=== PATIENT | female | born 1945 | race Caucasian/White ===

== ENCOUNTER → 2017-08-13 | Outpatient (REF) | payer MEDICARE, OTHER ==
[2017-08-13 20:45] LABS: C REACTIVE PROTEIN QUANTITATIV < 0.30 MG/DL (0.00-0.30)
== END ==
LOC: M LAB REF 16:56
DX: H60.02 Abscess of left external ear (principal)
CPT/HCPCS: 86140

== ENCOUNTER 2017-08-20 11:28 | Emergency (ER) | payer MEDICARE, OTHER ==
[2017-08-20] MEDS: IPRATROPIUM 0.5MG/ALBUTEROL 2.5MG INH SOL UD 3ML (DUONEB)(J7620) NEB (12:00)
[2017-08-20 12:13] LABS: BASO % 0.6 % (0.0-1.0); EOS # 0.2 10^3/uL (0.0-0.50); EOS % 4.1 % (0.0-3.0); HEMATOCRIT 40.8 % (36.0-47.0); IMMATURE GRANULOCYTE % 1.1 % (0-0); LYMPH # 0.7 10^3/uL (1.5-4.5); LYMPH % 19.1 % (24.0-44.0); MEAN CORPUSCULAR HEMOGLOBIN 31.2 pg (27.0-33.0); MEAN CORPUSCULAR HGB CONC 34.3 g/dl (32.0-36.5); MEAN CORPUSCULAR VOLUME 90.9 fl (80.0-96.0); MONO # 0.3 10^3/uL (0.0-0.8); MONO % 7.2 % (0.0-5.0); NEUTROPHILS # 2.5 10^3/uL (1.8-7.7); NEUTROPHILS % 67.9 % (36.0-66.0); PLATELET COUNT, AUTOMATED 204 10^3/uL (150-450); RED BLOOD COUNT 4.49 10^6/uL (4.00-5.40); RED CELL DISTRIBUTION WIDTH 13.2 % (11.5-14.5); WHITE BLOOD COUNT 3.6 10^3/uL (4.0-10.0)
[2017-08-20 12:26] LABS: ANION GAP 12 MEQ/L (8-16); BLOOD UREA NITROGEN 11 MG/DL (7-18); CALCIUM LEVEL 8.6 MG/DL (8.8-10.2); CARBON DIOXIDE LEVEL 23 MEQ/L (21-32); CHLORIDE LEVEL 79 MEQ/L (98-107); CREATININE FOR GFR 0.95 MG/DL (0.55-1.30); GLOMERULAR FILTRATION RATE > 60.0 (>39); GLUCOSE, FASTING 275 MG/DL (70-100); POTASSIUM SERUM 4.9 MEQ/L (3.5-5.1)
[2017-08-20 12:31] LABS: ALBUMIN 3.5 GM/DL (3.2-5.2); ALKALINE PHOSPHATASE 148 U/L (45-117); ALT/SGPT 128 U/L (12-78); AST/SGOT 259 U/L (7-37); BILIRUBIN,DIRECT 0.2 MG/DL (0.0-0.2); BILIRUBIN,TOTAL 0.7 MG/DL (0.2-1.0); NT-PRO BNP 4399 PG/ML (<125)
[2017-08-20 12:35] LABS: LACTIC ACID SEPSIS PROTOCOL 5.4 MMOL/L (0.4-2.0)
[2017-08-20 12:35] LABS: SODIUM LEVEL 114 MEQ/L (136-145)
[2017-08-20] MEDS: NS 500 ML IV ×2 (12:47→14:29)
[2017-08-20 12:48] LABS: ABG BASE EXCESS -7.7 (-2.0-2.0); ABG HCO3 21.5 MEQ/L (22.0-26.0); ABG PARTIAL PRESSURE CO2 59.7 mmHg (35.0-45.0); ABG PARTIAL PRESSURE O2 165.4 mmHg (75.0-100.0); ABG STANDARD HCO3 18.4 MEQ/L (22.0-26.0); ABG TOTAL CO2 23.4 MEQ/L (23.0-31.0)
[2017-08-20 12:51] LABS: ABG pH (ARTERIAL) 7.175 UNITS (7.350-7.450)
[2017-08-20] MEDS: ALBUTEROL SULFATE 2.5 MG/0.5 ML INH NEB SOLN NEB ×3 (13:18→17:05)
[2017-08-20] MEDS ORDERED: ISOVUE-370 76% 100ML VIAL (Q9967) As Ordered (13:19)
[2017-08-20 14:55] LABS: CK-MB VALUE MASS 19.3 NG/ML (0.0-3.6); CPK CREATINE PHOSPHOKINASE 331 U/L (26-192); MB/CK RELATIVE INDEX 5.83 (< OR =4)
[2017-08-20 14:57] LABS: TROPONIN I 3.05 NG/ML (< 0.10)
[2017-08-20 15:37] LABS: ABG BASE EXCESS -8.6 (-2.0-2.0); ABG O2 SATURATION 88.9 % (95.0-99.0); ABG PARTIAL PRESSURE O2 70.9 mmHg (75.0-100.0); ABG STANDARD HCO3 17.4 MEQ/L (22.0-26.0); ABG TOTAL CO2 24.1 MEQ/L (23.0-31.0)
[2017-08-20 15:39] LABS: ABG PARTIAL PRESSURE CO2 70.3 mmHg (35.0-45.0); ABG pH (ARTERIAL) 7.113 UNITS (7.350-7.450)
[2017-08-20] MEDS: FUROSEMIDE 40 MG/4 ML VIAL (J1940) IV (15:57)
[2017-08-20 15:58] LABS: CK-MB VALUE MASS 22.5 NG/ML (0.0-3.6); CPK CREATINE PHOSPHOKINASE 395 U/L (26-192); MB/CK RELATIVE INDEX 5.69 (< OR =4)
[2017-08-20] MEDS ORDERED: ASPIRIN 81 MG CHEW TABLET PO (16:15)
[2017-08-20 16:17] LABS: ABG HCO3 20.5 MEQ/L (22.0-26.0); ABG O2 SATURATION 95.3 % (95.0-99.0); ABG PARTIAL PRESSURE O2 95.4 mmHg (75.0-100.0); ABG STANDARD HCO3 17.3 MEQ/L (22.0-26.0); ABG TOTAL CO2 22.3 MEQ/L (23.0-31.0)
[2017-08-20 16:18] LABS: ABG pH (ARTERIAL) 7.151 UNITS (7.350-7.450)
[2017-08-20] MEDS: HEPARIN SOD (PORCINE) 5000 UNITS/ML VIAL IV (16:27)
[2017-08-20] MEDS: HEPARIN DRIP 25,000 UNITS in APPROPRIATE DILUENT 1 EA IV (16:28)
[2017-08-20 18:00] LABS: APPEARANCE, URINE HAZY (CLEAR); BACTERIA, URINE AUTO NEGATIVE (NEGATIVE); BILIRUBIN, URINE AUTO NEGATIVE (NEGATIVE); BLOOD, URINE BLOOD 2+ (NEGATIVE); COLOR, URINE YELLOW (YELLOW); GLUCOSE, URINE (UA) AUTO 1+ mg/dL (NEGATIVE); KETONE, URINE AUTO NEGATIVE (NEGATIVE); LEUKOCYTE ESTERASE, URINE AUTO NEGATIVE (NEGATIVE); MUCUS, URINE SMALL (NEGATIVE); NITRITE, URINE AUTO NEGATIVE (NEGATIVE); PROTEIN, URINE AUTO 1+ mg/dL (NEGATIVE); RBC, URINE AUTO 5 /HPF (0-3); SPECIFIC GRAVITY URINE AUTO 1.049 (1.002-1.035); SQUAMOUS EPITHELIAL CELL UR AU 0 /HPF (0-6); WBC, URINE AUTO 2 /HPF (0-3)
[2017-08-20] MEDS: VASOPRESSIN INJ 20 UNITS in NS 500 ML IV (18:08)
== END 2017-08-20 18:51 | disposition short-term general hospital (02) ==
LOC: M ED 11:28
DX: E87.1 Hypo-osmolality and hyponatremia (principal); J44.9 Chronic obstructive pulmonary disease, unspecified; R06.02 Shortness of breath; I21.4 Non-ST elevation (NSTEMI) myocardial infarction; T59.7X1A Toxic effect of carbon dioxide, accidental (unintentional), initial encounter; I50.9 Heart failure, unspecified; F17.200 Nicotine dependence, unspecified, uncomplicated; Z95.1 Presence of aortocoronary bypass graft
CPT/HCPCS: Q9967

== ENCOUNTER → 2017-09-22 | Outpatient (REF) | payer MEDICARE ==
[2017-09-22 18:53] LABS: FOLATE > 24.0 NG/ML; VITAMIN B12 LEVEL 464 PG/ML
[2017-09-22 19:00] LABS: RHEUMATOID FACTOR QUANT < 10.0 IU/ML (0-15.0)
== END ==
LOC: M LAB REF 16:26
DX: R25.1 Tremor, unspecified (principal)
CPT/HCPCS: 82525

== ENCOUNTER 2018-02-11 17:16 | Emergency (ER) | payer MEDICARE ==
[2018-02-11 18:07] LABS: BASO % 0.4 % (0.0-1.0); EOS # 0.1 10^3/uL (0.0-0.50); EOS % 0.8 % (0.0-3.0); HEMATOCRIT 38.2 % (36.0-47.0); HEMOGLOBIN 12.9 g/dl (12.0-15.5); IMMATURE GRANULOCYTE % 0.2 % (0-3.0); LYMPH % 21.3 % (24.0-44.0); MEAN CORPUSCULAR HEMOGLOBIN 30.9 pg (27.0-33.0); MEAN CORPUSCULAR HGB CONC 33.8 g/dl (32.0-36.5); MEAN CORPUSCULAR VOLUME 91.4 fl (80.0-96.0); MONO # 0.9 10^3/uL (0.0-0.8); MONO % 9.6 % (0.0-5.0); NEUTROPHILS # 6.3 10^3/uL (1.8-7.7); NEUTROPHILS % 67.7 % (36.0-66.0); PLATELET COUNT, AUTOMATED 298 10^3/uL (150-450); RED BLOOD COUNT 4.18 10^6/uL (4.00-5.40); RED CELL DISTRIBUTION WIDTH 13.9 % (11.5-14.5); WHITE BLOOD COUNT 9.2 10^3/uL (4.0-10.0)
[2018-02-11] MEDS: ONDANSETRON 4MG/2ML VIAL (J2405) IV (18:07)
[2018-02-11] MEDS: NS 1,000 ML IV (18:07)
[2018-02-11] MEDS: MORPHINE 2 MG/ML 1ML SYRINGE (J2270) IV (18:10)
[2018-02-11 18:19] LABS: INR 0.88
[2018-02-11 18:31] LABS: ALBUMIN 3.9 GM/DL (3.2-5.2); ALBUMIN/GLOBULIN RATIO 1.08 (1.00-1.93); ALKALINE PHOSPHATASE 72 U/L (45-117); ALT/SGPT 23 U/L (12-78); ANION GAP 4 MEQ/L (8-16); AST/SGOT 14 U/L (7-37); BILIRUBIN,DIRECT 0.1 MG/DL (0.0-0.2); BILIRUBIN,TOTAL 0.3 MG/DL (0.2-1.0); BLOOD UREA NITROGEN 13 MG/DL (7-18); CALCIUM LEVEL 10.4 MG/DL (8.8-10.2); CARBON DIOXIDE LEVEL 34 MEQ/L (21-32); CHLORIDE LEVEL 98 MEQ/L (98-107); CREATININE FOR GFR 0.55 MG/DL (0.55-1.30); GLOMERULAR FILTRATION RATE > 60.0 (>39); GLUCOSE, FASTING 102 MG/DL (70-100); LIPASE 235 U/L (73-393); POTASSIUM SERUM 3.7 MEQ/L (3.5-5.1); SODIUM LEVEL 136 MEQ/L (136-145); TOTAL PROTEIN 7.5 GM/DL (6.4-8.2)
[2018-02-11 19:59] LABS: KETONE, URINE AUTO RFX NEGATIVE (NEGATIVE); MUCUS, URINE RFX SMALL (NEGATIVE); NITRITE, URINE AUTO RFX NEGATIVE (NEGATIVE); RBC, URINE AUTO RFX 2 /HPF (0-3); SQUAM EPITHELIAL CELL UR AURFX 0 /HPF (0-6); WBC, URINE AUTO RFX 7 /HPF (0-3)
[2018-02-11 20:02] LABS: LEUKOCYTE ESTERASE UR AUTO RFX TRACE (NEGATIVE)
== END 2018-02-11 20:53 | disposition home or self-care (01) ==
LOC: M ED 17:16
DX: K52.9 Noninfective gastroenteritis and colitis, unspecified (principal); J44.9 Chronic obstructive pulmonary disease, unspecified; F41.9 Anxiety disorder, unspecified; Z87.891 Personal history of nicotine dependence; Z79.82 Long term (current) use of aspirin; Z79.899 Other long term (current) drug therapy; Z88.8 Allergy status to other drugs, medicaments and biological substances; Z91.89 Other specified personal risk factors, not elsewhere classified
CPT/HCPCS: J2405

== ENCOUNTER → 2018-07-09 | Outpatient (REF) | payer MEDICARE ==
[~2018-07-09] MED LIST: ASPI1TAB PO; BACT800T5 PO; IPRA0.00 INH; LORA0.5T11 PO; MIRT1TAB PO; ONDA4SOL PO; PRAV40TA2 PO; PROAAER10 INH; SERT25TA PO; SYMB80INH INH; ZOFR4TAB14 PO
== END ==
LOC: M LAB REF 13:17
PROVIDERS: ATTEND Internal Medicine
DX: E83.52 Hypercalcemia (principal)

== ENCOUNTER 2019-02-12 18:04 | Inpatient (IN) | payer MEDICARE ==
[~2019-02-12] VITALS: Ht 162.6 cm; Wt 37.4 kg
[~2019-02-12 18:04] MED LIST changes: -ASPI1TAB PO; +ASPI81TA26 PO; -SERT25TA PO; +SERT25TA85 PO
[2019-02-12] MEDS ORDERED: NS 1,000 ML IV SCH ×2 (18:11→21:00)
[2019-02-12] MEDS ORDERED: ONDANSETRON 4MG/2ML VIAL (J2405) IV ONE (18:15)
[2019-02-12] MEDS ORDERED: LIDOCAINE 2% 5ML JELLY UROJET TOP ONE (18:15)
--- NOTE | 2019-02-12 18:34 | REPVR ---
EXAM: CT Head Without Contrast EXAM DATE/TIME: 02/12/2019 6:11 PM CLINICAL HISTORY: 74 years old, female; Injury or trauma; Fall; Initial encounter; Blunt trauma (contusions or hematomas); Consciousness not specified TECHNIQUE: Imaging protocol: Computed tomography images of the head without contrast. Radiation optimization: All CT scans at this facility use at least one of these dose optimization techniques: automated exposure control; mA and/or kV adjustment per patient size (includes targeted exams where dose is matched to clinical indication); or iterative reconstruction. COMPARISON: CT Head without contrast 08/20/2017 3:32 PM FINDINGS: Brain: No intracranial mass, focal mass effect or midline shift. No acute intracranial hemorrhage. Moderate decreased attenuation in periventricular/centrum semiovale white matter. No focal effacement of cortical sulci to indicate acute cortical infarct. Ventricles: Prominent ventricles and CSF spaces suggest parenchymal volume loss. Bones/joints: No calvarial fracture or destructive process. Sinuses: Visualized paranasal sinuses are unremarkable. Mastoid air cells: Mastoid air cells are normally aerated. Orbits: Visualized globes and orbits are unremarkable. Soft tissues: Mild left posterior vertex extracranial soft tissue swelling. IMPRESSION: 1. Mild left posterior vertex extracranial scalp swelling 2. No acute intracranial abnormality. 3. Atrophy and chronic microangiopathic change in supratentorial white matter. Electronically signed by: Leonard Bowden On 02/12/2019 18:34:20 PM
[2019-02-12] MEDS ORDERED: OMEP-218 PO (18:47)
[2019-02-12] MEDS ORDERED: FURO40TA2 PO (18:47)
[2019-02-12] MEDS ORDERED: D-50CAP PO (18:47)
[2019-02-12] MEDS ORDERED: CENT1TAB PO (18:47)
[2019-02-12] MEDS ORDERED: MORPHINE 2 MG/ML 1ML SYRINGE (J2270) IV ONE (19:30)
[2019-02-12 19:34] LABS: INR 0.94; PROTHROMBIN TIME 12.3 SECONDS (11.8-14.0)
--- NOTE | 2019-02-12 19:47 | REP ---
AP pelvis: There is an intertrochanteric fracture of the left hip. There is no dislocation. The right hip is unremarkable. No other pelvic fracture is identified. There is lumbar scoliosis convex right. Left hip two views: There is an intertrochanteric fracture. There is no dislocation. Electronically Signed by Moisés Juares MD 02/12/2019 07:38 P
--- NOTE | 2019-02-12 19:49 | REP ---
Portable chest, 07:17 p.m., two AP views with the patient supine: Comparison is 08/20/2017. The lung fernandez are chronically hyperinflated, unchanged. There are no infiltrates. There are no pleural effusions. There are no masses or nodules. Cardiac size is normal. The jhoana, mediastinum, skeletal structures are unremarkable for positioning. Impression: Chronic hyperinflation. No acute cardiopulmonary findings. Electronically Signed by Moisés Juares MD 02/12/2019 07:40 P
[2019-02-12 19:56] LABS: BLOOD UREA NITROGEN 11 MG/DL (7-18); CALCIUM LEVEL 7.9 MG/DL (8.8-10.2); CARBON DIOXIDE LEVEL 33 MEQ/L (21-32); CHLORIDE LEVEL 99 MEQ/L (98-107); CK-MB VALUE MASS 3.2 NG/ML (<3.6); CPK CREATINE PHOSPHOKINASE 89 U/L (26-192); CREATININE FOR GFR 0.36 MG/DL (0.55-1.30); GLOMERULAR FILTRATION RATE > 60.0 (>39); GLUCOSE, FASTING 91 MG/DL (70-100); POTASSIUM SERUM 3.7 MEQ/L (3.5-5.1); SODIUM LEVEL 137 MEQ/L (136-145); TROPONIN I < 0.02 NG/ML (< 0.10)
[2019-02-12] MEDS ORDERED: SERT-141 PO (20:10)
--- NOTE | 2019-02-12 21:18 | HPEPDOC ---
General Date of Admission 02/12/19 Date of Service: Feb 12, 2019 Attending Physician: YUAN ARAGON MD Chief Complaint The patient is a 74-year-old female admitted with a reason for visit of Hip Inju ry. Source: Patient, Family Exam Limitations: Mild cognitive slowing Timing/Duration: Day(s) (. 1 day) Severity: Moderate Associated Symptoms: Other (. Pain at the left hip) History of Present Illness 74 years old white female with past medical history of dementia, COPD, status post CABG 2, status post hysterectomy. She is very poor historian secondary dementia. History was obtained from his son was available at the bedside. As per son, she was trying to answer her phone and and subsequently fell forward on her kitchen and sustained injury to her left hip. Patient complaining of pain at the left hip which is 5/10, sharp, nonradiating, relieved with rest and medications exacerbated by movements, not associated with. With any other symptoms. Terra will be admitted to medical floor with the diagnosis of left hip fracture and will be seen by Dr. Bauer in a.m. Home Medications Scheduled Aspirin (Aspirin EC) 81 Mg Tab, 81 MG PO DAILY, (Reported) Budesonide/Formoterol (Symbicort 80-4.5 Mcg Inhaler) 60 Puff/Inhaler Aers, 2 PUFF INH BID, (Reported) Cholecalciferol (Vitamin D3) (D-5000 Maximum Strength) 5,000 Unit Capsule, 5,000 UNITS PO DAILY, (Reported) Furosemide (Furosemide) 40 Mg Tablet, 20 MG PO DAILY, (Reported) Multivit-Min/FA/Lycopen/Lutein (Centrum Silver Tablet) 1 Each Tablet, 1 TAB PO DAILY, (Reported) Omeprazole (Omeprazole) 20 Mg Capsule.dr, 20 MG PO BID, (Reported) Sertraline Hcl (Sertraline HCl) 50 Mg Tablet, 50 MG PO BID, (Reported) Scheduled PRN Albuterol Sulfate (Proair Hfa) 108 Mcg/Act Aer, 2 PUFFS INH TID PRN for SHORTNESS OF BREATH, (Reported) Allergies Coded Allergies: alendronate sodium (Verified Allergy, Unknown, hives, 02/12/19) atorvastatin (Verified Allergy, Unknown, unk, 02/12/19) clopidogrel (Verified Allergy, Unknown, hives, 02/12/19) fentanyl (Verified Allergy, Unknown, cardiac arrest, 02/12/19) nickel (Verified Allergy, Unknown, unk, 02/12/19) Past Medical History Medical History Dementia, COPD, CABG 2 Surgical History Status post hysterectomy Family History Significant Family History: Other (. Family history of breast cancer, as per patient's son) Social History * Smoker: current smoker Alcohol: Denies Drugs: denies Psychosocial History: No pertinent psych hx A-FIB/CHADSVASC A-FIB History Current/History of A-Fib/PAF?: No Review of Systems Constitutional: Denies: Chills, Fever, Malaise, Night Sweats, Weakness, Fatigue, Weight Loss, Lethargy, Other Eyes: Denies: Pain, Vision change, Conjunctivae inflammation, Eyelid inflammation, Redness, Other ENT: Denies: Head Aches, Ear Pain, Dysphagia, Sinus Congestion, Post Nasal Drip, Sore Throat, Epistaxis, Other Symptoms Skin: Denies: Rash, Lesions, Jaundice, Bruising, Itching, Dry, Breakdown, Nail Changes, Other Pulmonary: Denies: Dyspnea, Cough, Pleuritic Chest Pain, Other Symptoms Cardiovascular: Denies: Chest Pain, Palpitations, Orthopnea, Paroxysmal Noc. Dyspnea, Edema, Lt Headedness, Other Symptoms Gastrointestinal: Denies: Nausea, Vomiting, Abdominal Pain, Diarrhea, Constipation, Melena, Hematochezia, Other Symptoms Genitourinary: Denies: Dysuria, Frequency, Incontinence, Hematuria, Retention, Other Symptoms Hematologic: Denies: Bruising, Bleeding Excessively, Petecchia, Purpura, Enlarged Lymph Nodes, Other Hematologic Endocrine: Denies: Polydipsia, Polyphagia, Polyuria, Heat Intolerance, Cold Intolerance, Other Endocrine Sx Musculoskeletal: Reports: Other Symptoms (. Left hip pain) Neurological: Denies: Weakness, Numbness, Incoordination, Change in speech, Con fusion, Seizures, Other Symptoms Psych: Denies: Mood Normal, Anxiety, Depression, Memory Issues, Thoughts of Self Harm, Anger, Thoughts of Harming Other, Other Psych Physical Examination General Exam: Positive: Cooperative, Mild Distress Eye Exam: Positive: PERRLA, Conjunctiva & lids normal ENT Exam: Positive: Atraumatic, Mucous membr. moist/pink Neck Exam: Positive: Supple Chest Exam: Positive: Clear to auscultation, Normal air movement Heart Exam: Positive: Rate Normal, Normal S1, Normal S2 Abdomen Exam: Positive: Normal bowel sounds Extremity Exam: Positive: Other (. External rotation and shortening of the left lower leg. Positive tenderness on palpation of the left hip) Skin Exam: Positive: Nl turgor and temperature Neuro Exam: Positive: Normal Speech, Normal Tone, Sensation Intact, Other (. Strength 5 over 5 on 3 extremities) Psych Exam: Positive: Mood NL Vital Signs Vital Signs Date Time Temp Pulse Resp B/P (MAP) Pulse Ox O2 Delivery O2 Flow Rate FiO2 02/12/19 20:16 18 02/12/19 19:54 91 02/12/19 18:42 97 Nasal Cannula 3.0 02/12/19 18:13 98.2 118/73 Laboratory Data Labs 24H Laboratory Tests 2 02/12/19 19:09: Prothrombin Time 12.3, Prothromb Time International Ratio 0.94, Anion Gap 5L, Glomerular Filtration Rate > 60.0, Blood Urea Nitrogen 11, Creatinine 0.36L, Sodium Level 137, Potassium Level 3.7, Chloride Level 99, Carbon Dioxide Level 33H, Calcium Level 7.9L, Total Creatine Kinase 89, Creatine Kinase MB 3.2, Creatine Kinase MB Relative Index 3.60, Troponin I < 0.02 CBC/BMP Laboratory Tests 02/12/19 19:09 Calcium Level 7.9 L, Total Creatine Kinase 89 Problems (1) Hip fracture Status: Acute Problem Text: 74 years old white female with past medical history of dementia, CAD status post CABG, COPD, had sustained a fall on her left hip and on x-ray does, she was diagnosed with intraductal and fracture of the left femur, ED spoke with Dr. Bauer, and patient possibly will be taken to or tomorrow Admit to medical floor Bed rest Nothing by mouth A.m. labs Pain management with morphine sulfate 2 mg IV every 4 hours when necessary IV fluids normal saline at 70 mL per hour Hold by mouth meds DVT prophylaxis with antithrombotic stockings as anticoagulation with be contraindicated secondary to impending surgery and bilateral SCDs cannot be applied secondary to left hip fracture (2) COPD (chronic obstructive pulmonary disease) Status: Acute Problem Text: Patient is currently active smoker NicoDerm 14 mg patch applied DuoNeb every 4 hours For the change in management depending on patient's clinical response O2 support by 3 L nasal cannula, pt is on home O2 by 3 L nasal cannula Plan / VTE VTE Prophylaxis Ordered?: Yes YUAN ARAGON MD Feb 12, 2019 21:18
[2019-02-12] MEDS: IPRATROPIUM 0.5MG/ALBUTEROL 2.5MG INH SOL UD 3ML (DUONEB)(J7620) NEB SCH (21:39)
[2019-02-12 23:09] VITALS: BP 123/58
[2019-02-12] MEDS: MORPHINE 4 MG/ML 1ML VIAL/SYRINGE (J2270) IV PRN (23:28)
[2019-02-13] VITALS (7 sets, daily range): BP systolic 106–138; BP diastolic 58–79
[2019-02-13] MEDS: IPRATROPIUM 0.5MG/ALBUTEROL 2.5MG INH SOL UD 3ML (DUONEB)(J7620) NEB SCH ×4 (01:20→11:20)
[2019-02-13] MEDS: MORPHINE 4 MG/ML 1ML VIAL/SYRINGE (J2270) IV PRN (05:56)
[2019-02-13 06:41] LABS: HEMATOCRIT 27.9 % (36.0-47.0); HEMOGLOBIN 9.1 g/dl (12.0-15.5); MEAN CORPUSCULAR HEMOGLOBIN 31.1 pg (27.0-33.0); MEAN CORPUSCULAR HGB CONC 32.6 g/dl (32.0-36.5); MEAN CORPUSCULAR VOLUME 95.2 fl (80.0-96.0); PLATELET COUNT, AUTOMATED 203 10^3/uL (150-450); RED BLOOD COUNT 2.93 10^6/uL (4.00-5.40); WHITE BLOOD COUNT 9.2 10^3/uL (4.0-10.0)
[2019-02-13 07:12] LABS: ALBUMIN 3.2 GM/DL (3.2-5.2); ALT/SGPT 25 U/L (12-78); BILIRUBIN,TOTAL 0.3 MG/DL (0.2-1.0); BLOOD UREA NITROGEN 11 MG/DL (7-18); CALCIUM LEVEL 8.7 MG/DL (8.8-10.2); CARBON DIOXIDE LEVEL 34 MEQ/L (21-32); CHLORIDE LEVEL 97 MEQ/L (98-107); CREATININE FOR GFR 0.39 MG/DL (0.55-1.30); GLOMERULAR FILTRATION RATE > 60.0 (>39); GLUCOSE, FASTING 91 MG/DL (70-100); MAGNESIUM LEVEL 1.9 MG/DL (1.8-2.4); POTASSIUM SERUM 3.9 MEQ/L (3.5-5.1); SODIUM LEVEL 137 MEQ/L (136-145); TOTAL PROTEIN 5.6 GM/DL (6.4-8.2)
--- NOTE | 2019-02-13 08:40 | CR ---
DATE OF CONSULTATION: 02/13/2019 CHIEF COMPLAINT: Left hip fracture. HISTORY OF PRESENT ILLNESS: This is a 74-year-old female who had a mechanical fall at home. She was getting up to answer a robo call. She fell in the kitchen and sustained an injury to her left hip. No prior history of pain to the hip although the patient is a poor historian given her history of dementia. PAST MEDICAL HISTORY: Dementia. Chronic obstructive pulmonary disease (COPD) Coronary artery bypass graft (CABG) times two. MEDICATIONS: - aspirin 81 mg - Symbicort - vitamin D - Lasix - multivitamin - omeprazole - sertraline as needed - albuterol ALLERGIES: ALENDRONATE, ATORVASTATIN, CLOPIDOGREL, FENTANYL and NICKEL. PAST SURGICAL HISTORY: Post hysterectomy. Coronary artery bypass graft times two. SOCIAL HISTORY: Is a smoker. Apparently lives with her son. Was ambulating what seems like normally before this, although difficult to tell given she is a poor historian. PHYSICAL EXAM: This morning, vital signs: Temperature 98.9. Blood pressure 123/59. Pulse rate 84. Respiratory rate 18, 97% on 2 liters nasal prongs. She appears comfortable. She is alert and oriented. She is lying supine in bed. She is alert and oriented times one. She thinks that she is in her apartment although she is easily corrected. I reoriented to her to the fact that she is in a hospital. She is aware that she fractured her left hip and that is where the pain is. Both hips are closed Minimal bruising to either hip and no swelling but an obvious shortening on externally rotated hip. No pain down to the knee, tibia or ankle. She is able to wiggle toes, dorsiflex and plantarflex her feet. Normal sensation throughout the feet. Feet are warm. Poor pedal pulses. Laboratory examination reveals a hemoglobin of 9.1. PT 12.3 and INR 0.94. Radiographs were obtained of the left hip and the AP of the pelvis. This shows a displaced shortened intertrochanteric hip fracture. This appears to have an intact lateral wall. Lesser trochanter may or may not be fractured off making this a two or three part fracture. CT scan was also obtained of her head without contrast. This showed no acute intracranial abnormality. However, there is atrophy and chronic microangiopathic changes in the supratentorial white matter as well as mild left posterior vertex extracranial scalp swelling. ASSESSMENT/PLAN: I did talk to Erum about pros, cons, risks and benefits of going ahead with left hip open reduction internal fixation in the form of an IM nail. She would prefer that I talk to her son which I went ahead and did. I called Marty Cheema on the phone. Again we talked about pros, cons, risks and benefits of not doing the surgery, risks of going ahead with open reduction internal fixation. Wished to proceed. Myself as well as the nurse practitioner Lizet did a two person over the phone consent for both the surgical procedure as well as blood products if she were to need them as she does have a baseline low hemoglobin. I suspect this may be the case. We will go ahead and book this now for [facility] OR today or tomorrow within the next 48 hours after the injury. For now, we will keep her fasting and hold off on any blood thinners and control her pain, make her bedrest. Edited: richard 02/23/2019 1502 MTDD
[2019-02-13] MEDS ORDERED: ASPIRIN 81 MG ENTERIC TAB PO SCH (09:00)
[2019-02-13] MEDS ORDERED: NICOTINE 14 MG/24 HR TRANSDERMAL TD SCH (09:00)
--- NOTE | 2019-02-13 09:43 | ECGEPIP ---
[facility] - ED Test Date: 2019-02-12 Pat Name: LAXMI BUENO Department: Room: [place] [address] Gender: Female Barista: carly : 1945 Requested By: BLAYNE BERRY Order Number: [id number] Reading MD: Nikki Pena Measurements Intervals [place] Rate: 87 P: 81 VT: 124 QRS: 54 QRSD: 120 T: 75 QT: 388 QTc: 468 Interpretive Statements SINUS RHYTHM POSSIBLE LEFT ATRIAL ENLARGEMENT LBBB SEPTAL MYOCARDIAL INFARCTION, OF INDETERMINATE AGE Electronically Signed on 02-13-2019 9:43:03 EDT by Nikki Pena
[2019-02-13] MEDS ORDERED: ceFAZolin 1GM INJ (J0690 PER 500MG) As Ordered ONE (13:46)
[2019-02-13] MEDS ORDERED: TRANEXAMIC ACID 100 MG/ML 10ML VIAL As Ordered ONE (13:46)
[2019-02-13] MEDS ORDERED: ceFAZolin 2 GM/D5W 50 ML IV BAG (J0690 PER 500MG) As Ordered ONE (14:23)
[2019-02-13] MEDS ORDERED: MIDAZOLAM INJ 2 MG/2 ML VIAL (J2250) As Ordered ONE (14:32)
[2019-02-13] MEDS ORDERED: PROPOFOL 200 MG/20 ML VIAL As Ordered ONE (14:32)
[2019-02-13] MEDS ORDERED: LIDOCAINE 2% INJ 100 MG/5 ML SDV (FOR ANES.) As Ordered ONE (14:32)
[2019-02-13] MEDS ORDERED: KETAMINE HCL 200 MG/20 ML VIAL As Ordered ONE (14:32)
[2019-02-13] MEDS ORDERED: PHENYLephrine HCL 500 MCG/5 ML (100MCG/ML) SYRINGE (J2370) As Ordered ONE (14:43)
[2019-02-13] MEDS: MORPHINE 10 MG/ML 1ML VIAL (J2270) IV PRN ×3 (15:10→15:41)
[2019-02-13] MEDS ORDERED: MORPHINE 10 MG/ML 1ML VIAL (J2270) As Ordered ONE (15:20)
--- NOTE | 2019-02-13 15:27 | REP ---
Intraoperative fluoroscopic views of the left hip. Internal fixation: A series of four intra and operative fluoroscopic images are performed during gamma nail internal fixation. The proximal and distal ends of the gamma nail are in satisfactory positions alignment. The fracture is maintained in satisfactory position alignment. Fluoroscopic exposure time is 73 seconds. The fluoroscopic images are performed with last image hold technology and require no additional radiation. Electronically Signed by Moisés Juares MD 02/13/2019 03:18 P
[2019-02-13] MEDS: LR 1,000 ML IV SCH ×2 (15:30→23:30)
[2019-02-13] MEDS ORDERED: PERCOCET 5MG/325MG TAB PO PRN (15:30)
[2019-02-13] MEDS ORDERED: ONDANSETRON 4MG/2ML VIAL (J2405) IV PRN ×2 (15:30)
[2019-02-13] MEDS ORDERED: ONDANSETRON 4 MG TAB (S0181) PO PRN (15:30)
[2019-02-13] MEDS ORDERED: MORPHINE 4 MG/ML 1ML VIAL/SYRINGE (J2270) IV PRN (15:30)
[2019-02-13] MEDS ORDERED: LR 1,000 ML IV SCH (15:30)
--- NOTE | 2019-02-13 15:48 | RO ---
DATE OF PROCEDURE: 02/13/2019 PREOPERATIVE DIAGNOSIS: Left hip fracture. POSTOPERATIVE DIAGNOSIS: Left hip fracture. PLANNED PROCEDURE: Left hip intramedullary (IM) nail, open reduction internal fixation. PROCEDURE PERFORMED: Left hip intramedullary nail, open reduction internal fixation. IMPLANTS USED: Synthes short TFN-A 125 degree, 200 mm long, proximal helical blade 90 mm and distal locking screw 38 mm long. OPERATIVE PREAMBLE: This 74-year-old female had a mechanical fall. I saw her at [facility] on the 5th floor, [address]. I talked to her; unfortunately, she had dementia. I talked to her son and Power of Landscape Nurseryman and next of kin, Marty Cheema. He consented for the surgical procedure, possible need for blood products as well as anesthetic consent. I marked the left side. We went ahead with the surgery. DESCRIPTION OF PROCEDURE: Patient brought to operating theater, they administered spinal anesthetic. Two grams of IV Ancef and 2 grams of IV tranexamic acid was administered as well as starting a transfusion of packed red blood cells. Once spinal anesthesia was induced, the patient was transferred to the operating table, placed supine on the fracture table with the left leg in traction and the right leg in the well leg anaya, flexed up and out of the way. Peroneal post was placed and appropriately padded. Left leg was tractioned and then slightly internally rotated. AP lateral radiographs were taken intraoperatively and throughout the case to confirm appropriate reduction. Preoperative time-out was performed and confirmed the patient and the site. Left lower extremity was prepped and draped in the usual sterile fashion with a shower curtain-style drape. We began by making a small 2-inch incision centered two fingerbreadths proximal to the level of the greater trochanter just posteriorly to that. I carried this dissection down through skin and subcutaneous tissue achieving meticulous hemostasis, achieving dissection down to the level of the greater trochanter. I passed the 3.2-mm partially-threaded tip guidewire at the level of the greater trochanter, at the tip of that, down to the level of the lesser trochanter and in line with the canal on the lateral radiograph. I then reamed overtop of this. I then inserted the 125 degree Synthes TFN-A nail with the radiolucent guide. I passed this down all the way down the canal. This slid down nicely and easily. The reduction was maintained. I then used the drop down guide to percutaneously insert another 3.2 mm guidewire in the center of the femoral head and neck. This measured approximately 95 mm. I then reamed over top of the guidewire to 90 mm, confirmed on both the AP and lateral radiograph that there was no drill or guidewire penetration. I then inserted a 90 mm helical blade over top of the guidewire. I performed near-far technique with fluoroscopy confirming that there was no penetration of the screw throughout the near-far technique. I then turned my attention distally. Again, using percutaneous technique, I drilled using the 3.2 mm drill and then I inserted a 38 mm long distal locking screw. I had also locked the nail proximally. Guide was removed. Final AP and lateral radiographs were taken proximally as well as distally to confirm proper reduction and nail placement. Wounds were thoroughly irrigated with normal saline mixed with cefazolin. Subcutaneous tissue was closed with interrupted #2-0 Vicryl and skin with cora. Skin was cleaned with a wet-and-dry dressing followed by application of Adaptic, 4 x 8 gauze, ABD dressing and cloth tape. The patient was taken out of the traction set up, transferred off the operating table and taken to the postanesthetic care unit in stable condition. All sponge, needle, and instrument counts were correct. Estimated blood loss 100 mL. No complications associated with the procedure. The plan for the patient is to weightbearing as tolerated. She will see physical therapy (PT) and occupational therapy (OT) while admitted to the hospital to ensure safety for mobilization, discharge possibly home or for discharge planning as well. Venous thromboembolism (VTE) prophylaxis will be achieved with rivaroxaban 10 mg by mouth once daily starting postoperative day #1. We will also check hemoglobin and electrolytes postoperative day 1, 2, and 3 as she is receiving a transfusion for a preoperative low hemoglobin of 9.1 due to her chronic obstructive pulmonary disease (COPD). I will communicate with Marty after the case is finalized as well and round tomorrow and the next day.
[2019-02-13] MEDS ORDERED: ONDANSETRON 4MG/2ML VIAL (J2405) As Ordered ONE (16:01)
--- NOTE | 2019-02-13 17:47 | IPNPDOC ---
Text Note Date of Service The patient was seen on 02/13/19. NOTE SUBJECTIVE: Patient examined at bedside, complaining of left hip pain from r ecent fall. States she often gets telemarketing calls, was napping, woke up frazzled to answer their call and happened to trip over her feet along the way to the phone, "I was half asleep trying to get there on time." Was down for 1.5 hours and then son came home and found her. Denies any symptoms prior to falling. She has no other complaints. Otherwise patient denies chest pain, shortness breath, nausea, vomiting, fevers, chills OBJECTIVE PHYSICAL EXAMINATION: VITAL SIGNS: Please see below. GENERAL: Pleasant, NAD, sitting up in bed awake alert oriented speaking in complete sentences no acute distress. Cachectic HEENT: Moist mucous membranes no elevation in CVP CARDIOVASCULAR: S1 S2 regular no additional heart sounds appreciated. RESPIRATORY: diffuse expiratory wheezing, baseline COPD. No accessory muscle use. Is at her baseline 3-4L NC currently ABDOMINAL: Bowel sounds present abdomen soft and non-tender EXTREMITIES: No clubbing cyanosis or edema. LLE limited movement due to recent fracture, tender to palpation at left hip. Spontaneously moves other 3 extremities. No edema or calf tenderness NEUROLOGICAL: No gross focal deficits appreciated PSYCHOLOGICAL: Appropriate LABORATORY DATA, MICROBIOLOGY: Please see below. IMAGING STUDIES: 02/12/19 hip/pelvis xray: There is an intertrochanteric fracture. There is no dislocation. ASSESSMENT AND PLAN: 74 yo F s/p mechanical fall here for left hip pain found to be fractured on admission PROBLEMS: 1. Left hip intertrochanteric fracture s/p mechanical fall: npo, bedrest, hold AC. Scheduled for OR today with Ortho. Appreciate input. PT/OT afterwards. On fall precautions 2. CAD s/p CABG: continue ASA & po lasix postop 3. Chronic hypoxic and hypercapnic respiratory failure 2/2 COPD & active tobacco use: nebs & nicotine patch. Chronically 2-3L NC. Stable, no resp complaints 4. Depression: stable continue Sertraline postop 5. Dementia: limited historian 6. GERD continue PPI postop 7. Malnourishment: BMI 14, likely worsened by baseline dementia. Frail- appearing. Encourage po intake after surgery. PFS to assist [demented 74 yo F reportedly lives alone with 2 sons checking in]. DVT prophylaxis: mechanical, avoid AC pending surgery DISPOSITION: scheduled for OR with Ortho today for left hip fracture. Resume meds after. PT/OT & PFS. I saw and evaluated the patient. I agree with the findings and plan of care as documented in the above note VS,Michelle, I+O VS, Nicholasbone, I+O Laboratory Tests 02/12/19 19:09 Calcium Level 7.9 L, Total Creatine Kinase 89 02/13/19 06:27 Calcium Level 8.7 L, Red Blood Count 2.93 L, Mean Corpuscular Volume 95.2, Mean Corpuscular Hemoglobin 31.1, Mean Corpuscular Hemoglobin Concent 32.6, Red Cell Distribution Width 13.8, Aspartate Amino Transf (AST/SGOT) 23, Alanine Aminotransferase (ALT/SGPT) 25, Alkaline Phosphatase 55, Total Bilirubin 0.3, Total Protein 5.6 L, Albumin 3.2 Vital Signs Date Time Temp Pulse Resp B/P (MAP) Pulse Ox O2 Delivery O2 Flow Rate FiO2 02/13/19 17:21 98.7 94 18 110/58 (75) 97 2.0 02/12/19 22:49 Nasal Cannula I&O- Last 24 Hours up to 6 AM 02/13/19 06:00 Intake Total 100 ml Output Total 200 ml Balance -100 ml CANDY ROBERTS DO Feb 13, 2019 17:47 PRETTY PRADO MD Feb 15, 2019 16:36
[2019-02-13] MEDS ORDERED: ALBUTEROL 90 MCG/ACT 8GM HFA INHALER INH PRN (18:30)
[2019-02-13] MEDS: SYMBICORT 80/4.5MCG INHALER 6GM INH SCH (20:06)
[2019-02-13] MEDS: OMEPRAZOLE 20 MG CAP PO SCH (20:20)
[2019-02-13] MEDS: SERTRALINE HCL 50 MG TAB PO SCH (20:20)
[2019-02-13] MEDS: ACETAMINOPHEN 325 MG TAB PO PRN (20:20)
[2019-02-14] MEDS: ACETAMINOPHEN 325 MG TAB PO PRN ×4 (00:58→21:31)
[2019-02-14 02:00] VITALS: BP 130/75
[2019-02-14 06:00] VITALS: BP 132/78
[2019-02-14 06:36] LABS: HEMATOCRIT 29.9 % (36.0-47.0); MEAN CORPUSCULAR HEMOGLOBIN 30.9 pg (27.0-33.0); MEAN CORPUSCULAR HGB CONC 33.4 g/dl (32.0-36.5); MEAN CORPUSCULAR VOLUME 92.3 fl (80.0-96.0); PLATELET COUNT, AUTOMATED 163 10^3/uL (150-450); RED BLOOD COUNT 3.24 10^6/uL (4.00-5.40); WHITE BLOOD COUNT 9.7 10^3/uL (4.0-10.0)
[2019-02-14 07:04] LABS: BLOOD UREA NITROGEN 10 MG/DL (7-18); CALCIUM LEVEL 8.9 MG/DL (8.8-10.2); CARBON DIOXIDE LEVEL 33 MEQ/L (21-32); CHLORIDE LEVEL 97 MEQ/L (98-107); CREATININE FOR GFR 0.47 MG/DL (0.55-1.30); GLOMERULAR FILTRATION RATE > 60.0 (>39); GLUCOSE, FASTING 109 MG/DL (70-100); POTASSIUM SERUM 3.6 MEQ/L (3.5-5.1); SODIUM LEVEL 133 MEQ/L (136-145)
[2019-02-14] MEDS: SYMBICORT 80/4.5MCG INHALER 6GM INH SCH ×2 (07:17→20:07)
[2019-02-14] MEDS: MOM 30ML SUSPENSION UDC PO SCH (07:47)
[2019-02-14] MEDS: MIRALAX *UNIT DOSE* 17GM PACKET PO SCH (07:47)
[2019-02-14] MEDS: MULTIVITAMINS/MINERALS THERAP 1 TAB PO SCH (07:48)
[2019-02-14] MEDS: SERTRALINE HCL 50 MG TAB PO SCH ×2 (07:49→21:31)
[2019-02-14] MEDS: FUROSEMIDE 20 MG TAB PO SCH (07:49)
[2019-02-14] MEDS: OMEPRAZOLE 20 MG CAP PO SCH ×2 (07:49→21:31)
[2019-02-14] MEDS: SENOKOT S TAB PO SCH ×2 (07:49→21:31)
[2019-02-14 10:00] VITALS: BP 132/80
--- NOTE | 2019-02-14 12:38 | IPNPDOC ---
Date Seen The patient was seen on 02/14/19. Progress Note SUBJECTIVE: Patient this morning is oriented to person and year but otherwise is disoriented to location situation day of the week months. She denies any complaints. Otherwise patient denies chest pain, shortness breath, nausea, vomiting, fevers, chills OBJECTIVE PHYSICAL EXAMINATION: VITAL SIGNS: Please see below. GENERAL: Pleasant, frail elderly woman, sitting up in bed awake alert oriented speaking in complete sentences no acute distress. Cachectic HEENT: Moist mucous membranes no elevation in CVP, she is wearing nasal cannula at her baseline CARDIOVASCULAR: S1 S2 regular no additional heart sounds appreciated. RESPIRATORY: Very mild diffuse expiratory wheezing,. No accessory muscle use. ABDOMINAL: Bowel sounds present abdomen soft and non-tender EXTREMITIES: No clubbing cyanosis or edema. Dressing is clean dry and intact NEUROLOGICAL: No gross focal deficits appreciated PSYCHOLOGICAL: Appropriate LABORATORY DATA, MICROBIOLOGY: Please see below. IMAGING STUDIES: 02/12/19 hip/pelvis xray: There is an intertrochanteric fracture. There is no dislocation. ASSESSMENT AND PLAN: 74 yo F s/p mechanical fall here for left hip pain found to be fractured PROBLEMS: 1. Left hip intertrochanteric fracture s/p mechanical fall: Postop day one tolerated the procedure well she is at her baseline respiratory status will likely require inpatient rehabilitation orthopedic surgery help is greatly appreciated patient is on anticoagulation and adequate pain control. Air U screen in place 2. CAD s/p CABG: continue ASA she has an adverse reaction to statins curiously she is not on a beta manny we'll defer to her outpatient providers no active symptoms at this time 3. Chronic hypoxic and hypercapnic respiratory failure 2/2 COPD & active tobacco use: nebs & nicotine patch. Chronically 2-3L NC. Stable, no resp complaints 4. Depression: stable continue Sertraline postop 5. Dementia: She is at her baseline 6. GERD continue PPI 7. Malnourishment: BMI 14, likely worsened by baseline dementia. Frail- appearing. Encourage po intake after surgery. PFS to assist demented 74 yo F reportedly lives alone with 2 sons checking in. DVT prophylaxis: As per orthopedic surgery DISPOSITION: Likely will need rehabilitation VS, I&O, 24H, Fishbone Vital Signs/I&O Vital Signs Date Time Temp Pulse Resp B/P (MAP) Pulse Ox O2 Delivery O2 Flow Rate FiO2 02/14/19 10:00 97.3 93 18 132/80 (97) 90 2.0 02/12/19 22:49 Nasal Cannula I&O- Last 24 Hours up to 6 AM 02/14/19 06:00 Intake Total 2330 ml Output Total 550 ml Balance 1780 ml Laboratory Data 24H LABS Laboratory Tests 2 02/14/19 06:16: Nucleated Red Blood Cells % (auto) 0.0, Anion Gap 3L, Glomerular Filtration Rate > 60.0, Blood Urea Nitrogen 10, Creatinine 0.47L, Sodium Level 133L, Potassium Level 3.6, Chloride Level 97L, Carbon Dioxide Level 33H, Calcium Level 8.9 CBC/BMP Laboratory Tests 02/14/19 06:16 Red Blood Count 3.24 L, Mean Corpuscular Volume 92.3, Mean Corpuscular Hemoglobin 30.9, Mean Corpuscular Hemoglobin Concent 33.4, Red Cell Distribution Width 13.7, Calcium Level 8.9 PRETTY PRADO MD Feb 14, 2019 12:38
[2019-02-14 14:00] VITALS: BP 121/64
[2019-02-14] MEDS: RIVAROXABAN 10 MG TAB (XARELTO) PO SCH (17:25)
[2019-02-14 22:00] VITALS: BP 126/64
[2019-02-15 02:00] VITALS: BP 150/71
[2019-02-15] MEDS ORDERED: XARE10TA PO (05:40)
[2019-02-15 06:00] VITALS: BP 138/73
[2019-02-15 06:54] LABS: HEMOGLOBIN 9.6 g/dl (12.0-15.5); MEAN CORPUSCULAR HGB CONC 34.3 g/dl (32.0-36.5); MEAN CORPUSCULAR VOLUME 90.3 fl (80.0-96.0); PLATELET COUNT, AUTOMATED 172 10^3/uL (150-450); WHITE BLOOD COUNT 8.4 10^3/uL (4.0-10.0)
[2019-02-15 07:18] LABS: BLOOD UREA NITROGEN 9 MG/DL (7-18); CALCIUM LEVEL 8.5 MG/DL (8.8-10.2); CARBON DIOXIDE LEVEL 35 MEQ/L (21-32); CHLORIDE LEVEL 94 MEQ/L (98-107); GLOMERULAR FILTRATION RATE > 60.0 (>39); GLUCOSE, FASTING 83 MG/DL (70-100); POTASSIUM SERUM 3.5 MEQ/L (3.5-5.1); SODIUM LEVEL 133 MEQ/L (136-145)
--- NOTE | 2019-02-15 07:51 | IPN ---
DATE: 02/14/2019 CHIEF COMPLAINT: Postop day #1 left hip IM nail. HISTORY OF PRESENT ILLNESS: This is a 74-year-old female seen on the [place] [address] [facility], [place] postoperative day #1 following a left hip IM nail for intertrochanteric hip fracture. She is doing well. She arouses easily. She is communicative. No concerns or complaints from the nurses. Sounds like last night she was up to the commode already. PHYSICAL EXAMINATION: This is well-appearing 74-year-old female. She communicates appropriately. I re-oriented her, as she does have baseline history of dementia. She follows commands nicely and easily. She is pleasant this morning. Bulky dressing is in situ and dry. She is able to wiggle her toes, dorsiflex, plantar flex foot. Foot is warm and well perfused with good pedal pulses. Repeat hemoglobin not yet back, but she did receive 1 unit of packed red blood cells during the operating room yesterday. ASSESSMENT/PLAN: This is a 74-year-old female. We will follow up hemoglobin today and the next two days, as well as electrolytes. She will be weightbearing as tolerated. Rivaroxaban for VT prophylaxis.
[2019-02-15] MEDS: SYMBICORT 80/4.5MCG INHALER 6GM INH SCH ×2 (08:00→20:12)
[2019-02-15] MEDS: MULTIVITAMINS/MINERALS THERAP 1 TAB PO SCH (08:23)
[2019-02-15] MEDS: SENOKOT S TAB PO SCH ×2 (08:23→20:32)
[2019-02-15] MEDS: OMEPRAZOLE 20 MG CAP PO SCH ×2 (08:23→20:32)
[2019-02-15] MEDS: ACETAMINOPHEN 325 MG TAB PO PRN ×2 (08:23→20:33)
[2019-02-15] MEDS: FUROSEMIDE 20 MG TAB PO SCH (08:23)
[2019-02-15] MEDS: MOM 30ML SUSPENSION UDC PO SCH (08:23)
[2019-02-15] MEDS: SERTRALINE HCL 50 MG TAB PO SCH ×2 (08:23→20:32)
[2019-02-15] MEDS: MIRALAX *UNIT DOSE* 17GM PACKET PO SCH (08:23)
--- NOTE | 2019-02-15 13:33 | IPN ---
DATE: 02/15/2019 CHIEF COMPLAINT: Postoperative day #2 left hip IM nail. HISTORY OF PRESENT ILLNESS: 74-year-old female with baseline dimension who was seen today at [address] in her [place] room. She is doing well. Apparently according to the nurses, she is already trying to get up and ambulate. She is seen with her son and daughter. Her son was the one who had originally obtained the consent for and this is the first time meeting [id number] in person with Advent Wiley. PHYSICAL EXAMINATION: Erum is sitting up in a chair. She appears comfortable. Vital signs are stable. Temperature 97.8. Blood pressure 138/73. Pulse rate 77. Respiratory rate 18. 92% on 2 liters nasal prongs. LABORATORY EXAM: Reveals a hemoglobin of 9.6. ASSESSMENT/PLAN: I talked to Erum's son Advent today. He is quite appreciative of me performing the surgery. He is a pleasant individual. He states that he would like his mother to have a nicotine patch as she is quite a heavy smoker and they have tried without it in the past with weaning down from the 21 mg patch. I will go ahead and order this. In addition, he states that they really cannot cope at home with managing Erum and I have communicated this to Lizet our nurse practitioner. She is working on seeing what kind of supports and long-term placement that we can accommodate for Erum.
[2019-02-15 14:10] VITALS: BP 138/75
[2019-02-15] MEDS: NICOTINE 21MG/24HR 1 EA TRANSDERMAL TD SCH (14:26)
--- NOTE | 2019-02-15 14:27 | IPNPDOC ---
Date Seen The patient was seen on 02/15/19. Progress Note SUBJECTIVE: Patient is a 74 year female who was seen and examined this morning. She has no complaints this morning. She is oriented to person and year but is unable to distinguish between location, situation and current time. She denies chest pain, shortness of breath, nausea, vomiting, fevers or chills. Patient was originally supposed to get a ARU this morning but this has been plac ed on hold for the patient does not have long-term placement. Because of the patient's dementia case management has been consulted to help with social situation. OBJECTIVE PHYSICAL EXAMINATION: VITAL SIGNS: Please see below. GENERAL: Pleasant elderly woman sitting up in bed does not appear in acute distress (has baseline dementia) HEENT: Atraumatic normocephalic pupils are equal round and reactive. Nasal cannula in place. CARDIOVASCULAR: Normal S1-S2 sounds, no audible rubs or murmurs noted. RESPIRATORY: Mild diffuse expiratory wheezing but no accessory muscle use. ABDOMINAL: Soft, nontender nondistended with positive bowel sounds in all 4 quadrants. EXTREMITIES: No lower extremity edema noted. Left hip has dressing in place clean dry and intact. No Discharge noted NEUROLOGICAL: Baseline dementia no focal deficits noted. LABORATORY DATA, IMAGING STUDIES, MICROBIOLOGY: Please see below. DVT prophylaxis ordered?: yes ASSESSMENT AND PLAN: This is a 74-year-old female admitted for left hip intertrochanteric fracture. PROBLEMS: Left hip intertrochanteric fracture s/p mechanical fall -Postop day #2 tolerated -at baseline respiratory status -orthopedic surgery recommend:Rivaroxaban for VT prophylaxis and weightbearing as tolerated. -need rehab, awaiting possible ad terminal makeup operator placement CAD s/p CABG -c/w ASA she -hx of adverse rxn statins -curiously she is not on a beta manny we'll defer to her outpatient providers -no active symptoms at this time, stable Chronic hypoxic and hypercapnic respiratory failure 2/2 COPD & active tobacco use -Chronically 2-3L NC -c/w nebs & nicotine patch -Stable Depression: c/w Sertraline Dementia -baseline -awaiting possible ad terminal makeup operator placement GERD c/w PPI Malnourishment -BMI 14, likely worsened by baseline dementia. demented 74 yo F reportedly lives alone with 2 sons checking in -awaiting possible senior living placement, PFS on board DISPOSITION: Case Management for ad terminal makeup operator placement options, VS, I&O, 24H, Nicholasbonelvin Vital Signs/I&O Vital Signs Date Time Temp Pulse Resp B/P (MAP) Pulse Ox O2 Delivery O2 Flow Rate FiO2 02/15/19 11:29 2.0 02/15/19 06:00 97.8 77 18 138/73 (94) 92 02/12/19 22:49 Nasal Cannula I&O- Last 24 Hours up to 6 AM 02/15/19 06:00 Intake Total 1710 ml Output Total 0 ml Balance 1710 ml Laboratory Data 24H LABS Laboratory Tests 2 02/15/19 06:18: Nucleated Red Blood Cells % (auto) 0.0, Anion Gap 4L, Glomerular Filtration Rate > 60.0, Blood Urea Nitrogen 9, Creatinine 0.40L, Sodium Level 133L, Potassium Level 3.5, Chloride Level 94L, Carbon Dioxide Level 35H, Calcium Level 8.5L CBC/BMP Laboratory Tests 02/15/19 06:18 Red Blood Count 3.10 L, Mean Corpuscular Volume 90.3, Mean Corpuscular Hemo globin 31.0, Mean Corpuscular Hemoglobin Concent 34.3, Red Cell Distribution Width 13.7, Calcium Level 8.5 L YOAN FISCHER DO Feb 15, 2019 14:27
[2019-02-15] MEDS: RIVAROXABAN 10 MG TAB (XARELTO) PO SCH (17:00)
[2019-02-15 22:00] VITALS: BP 130/73
[2019-02-16 05:52] LABS: HEMATOCRIT 26.6 % (36.0-47.0); HEMOGLOBIN 9.1 g/dl (12.0-15.5); MEAN CORPUSCULAR HEMOGLOBIN 30.6 pg (27.0-33.0); MEAN CORPUSCULAR HGB CONC 34.2 g/dl (32.0-36.5); MEAN CORPUSCULAR VOLUME 89.6 fl (80.0-96.0); PLATELET COUNT, AUTOMATED 204 10^3/uL (150-450); RED BLOOD COUNT 2.97 10^6/uL (4.00-5.40); WHITE BLOOD COUNT 6.6 10^3/uL (4.0-10.0)
[2019-02-16 06:00] VITALS: BP 119/58
[2019-02-16 06:15] LABS: BLOOD UREA NITROGEN 8 MG/DL (7-18); CALCIUM LEVEL 8.3 MG/DL (8.8-10.2); CARBON DIOXIDE LEVEL 35 MEQ/L (21-32); CHLORIDE LEVEL 93 MEQ/L (98-107); CREATININE FOR GFR 0.33 MG/DL (0.55-1.30); GLOMERULAR FILTRATION RATE > 60.0 (>39); GLUCOSE, FASTING 72 MG/DL (70-100); POTASSIUM SERUM 3.2 MEQ/L (3.5-5.1); SODIUM LEVEL 132 MEQ/L (136-145)
[2019-02-16] MEDS: SYMBICORT 80/4.5MCG INHALER 6GM INH SCH ×2 (07:47→20:00)
[2019-02-16] MEDS ORDERED: POTASSIUM CHLORIDE 10 MEQ SR TABLET PO ONE (08:00)
[2019-02-16] MEDS: MULTIVITAMINS/MINERALS THERAP 1 TAB PO SCH (08:54)
[2019-02-16] MEDS: OMEPRAZOLE 20 MG CAP PO SCH ×2 (08:54→20:33)
[2019-02-16] MEDS: MOM 30ML SUSPENSION UDC PO SCH (08:54)
[2019-02-16] MEDS: SENOKOT S TAB PO SCH ×2 (08:54→20:33)
[2019-02-16] MEDS: NICOTINE 21MG/24HR 1 EA TRANSDERMAL TD SCH (08:54)
[2019-02-16] MEDS: SERTRALINE HCL 50 MG TAB PO SCH ×2 (08:54→20:34)
[2019-02-16] MEDS: FUROSEMIDE 20 MG TAB PO SCH (08:54)
[2019-02-16] MEDS: MIRALAX *UNIT DOSE* 17GM PACKET PO SCH (08:56)
--- NOTE | 2019-02-16 12:02 | IPNPDOC ---
Text Note Date of Service The patient was seen on 02/16/19. NOTE Subjective: Patient is a 74-year-old female with PMHx of COPD, Dementia, CAD s/p CABG who presented to the ER with after she had fallen forward home and complained of left hip pain. Upon arrival to emergency room, patient had imaging completed which was consistent with left hip fracture. Patient was admitted to hospital service for further evaluation and treatment. Orthopedic surgery was called on consultation. Patient was seen and examined at the bedside. Currently patient reports that she is not in any acute distress. She denies chest pain, shortness of breath or palpitations. Denies nausea, vomiting, abdominal pain, constipation, diarrhea, o r urinary discomfort. Objective: Vitals (See below) General: Lying in bed, no acute distress, comfortable, Awake / Alert HEENT: NC, AT CVS: RRR, +S1S2 Lungs: Fair air entry b/l, -w/r/r Abdomen: Soft, ND, NT Extremities: - Edema, - Calf tenderness Assessment and plan: Left hip intertrochanteric fracture s/p mechanical fall - Postop day #3 tolerated - orthopedic surgery on consultation - Pain control and anticoagulation and physical therapy based on recommendations by orthopedic surgery - Patient will likely need subacute rehabilitation / long-term placement; potential for ARU bed if home plan is established CAD s/p CABG - c/w ASA she - hx of adverse rxn statins - curiously she is not on a beta manny we'll defer to her outpatient providers - no active symptoms at this time, stable Chronic hypoxic and hypercapnic respiratory failure 2/2 COPD & active tobacco use - Chronically on 2-3L NC oxygen - c/w nebs & nicotine patch Depression: - c/w Sertraline Dementia - at baseline Malnourishment - BMI 14, likely worsened by baseline dementia. GERD - c/w Omeprazole DVT prophylaxis - as per orthopedic surgery Disposition: - Aawaiting possible detention placement, PFS on board Michelle GIRALDO, I+O VSMichelle, I+O Laboratory Tests 02/16/19 05:09 Red Blood Count 2.97 L, Mean Corpuscular Volume 89.6, Mean Corpuscular Hemoglobin 30.6, Mean Corpuscular Hemoglobin Concent 34.2, Red Cell Distribution Width 13.3, Calcium Level 8.3 L Vital Signs Date Time Temp Pulse Resp B/P (MAP) Pulse Ox O2 Delivery O2 Flow Rate FiO2 02/16/19 08:00 3.0 02/16/19 06:00 98.2 80 18 119/58 (78) 100 02/12/19 22:49 Nasal Cannula I&O- Last 24 Hours up to 6 AM 02/16/19 06:00 Intake Total 2610 ml Output Total 1550 ml Balance 1060 ml SOCORRO GLEASON MD Feb 16, 2019 12:02
[2019-02-16 13:41] VITALS: BP 104/69
[2019-02-16] MEDS: ACETAMINOPHEN 325 MG TAB PO PRN ×2 (14:01→20:34)
[2019-02-16] MEDS: RIVAROXABAN 10 MG TAB (XARELTO) PO SCH (18:31)
[2019-02-16 22:00] VITALS: BP 117/60
[2019-02-17 06:00] VITALS: BP 118/73
[2019-02-17 06:51] LABS: HEMATOCRIT 27.8 % (36.0-47.0); HEMOGLOBIN 9.4 g/dl (12.0-15.5); MEAN CORPUSCULAR HEMOGLOBIN 31.1 pg (27.0-33.0); MEAN CORPUSCULAR HGB CONC 33.8 g/dl (32.0-36.5); MEAN CORPUSCULAR VOLUME 92.1 fl (80.0-96.0); PLATELET COUNT, AUTOMATED 233 10^3/uL (150-450); RED BLOOD COUNT 3.02 10^6/uL (4.00-5.40); WHITE BLOOD COUNT 5.5 10^3/uL (4.0-10.0)
[2019-02-17 07:18] LABS: BLOOD UREA NITROGEN 6 MG/DL (7-18); CALCIUM LEVEL 8.6 MG/DL (8.8-10.2); CARBON DIOXIDE LEVEL 36 MEQ/L (21-32); CHLORIDE LEVEL 94 MEQ/L (98-107); CREATININE FOR GFR 0.35 MG/DL (0.55-1.30); GLOMERULAR FILTRATION RATE > 60.0 (>39); GLUCOSE, FASTING 84 MG/DL (70-100); POTASSIUM SERUM 3.6 MEQ/L (3.5-5.1); SODIUM LEVEL 132 MEQ/L (136-145)
[2019-02-17] MEDS: MIRALAX *UNIT DOSE* 17GM PACKET PO SCH (08:51)
[2019-02-17] MEDS: SENOKOT S TAB PO SCH ×2 (08:51→20:30)
[2019-02-17] MEDS: MOM 30ML SUSPENSION UDC PO SCH (08:51)
[2019-02-17] MEDS: OMEPRAZOLE 20 MG CAP PO SCH ×2 (08:53→20:30)
[2019-02-17] MEDS: FUROSEMIDE 20 MG TAB PO SCH (08:53)
[2019-02-17] MEDS: NICOTINE 21MG/24HR 1 EA TRANSDERMAL TD SCH (08:53)
[2019-02-17] MEDS: SERTRALINE HCL 50 MG TAB PO SCH ×2 (08:53→20:30)
[2019-02-17] MEDS: MULTIVITAMINS/MINERALS THERAP 1 TAB PO SCH (08:53)
[2019-02-17 10:00] VITALS: BP 121/71
[2019-02-17] MEDS: SYMBICORT 80/4.5MCG INHALER 6GM INH SCH ×2 (11:30→20:29)
--- NOTE | 2019-02-17 14:47 | IPNPDOC ---
Text Note Date of Service The patient was seen on 02/17/19. NOTE Subjective: Patient is a 74-year-old female with PMHx of COPD, Dementia, CAD s/p CABG who presented to the ER with after she had fallen forward home and complained of left hip pain. Upon arrival to emergency room, patient had imaging completed which was consistent with left hip fracture. Patient was admitted to hospital service for further evaluation and treatment. Orthopedic surgery was called on consultation. Patient was seen and examined at the bedside. Currently they have been working with physical therapy. Date. Denies chest pain, shortness of breath or palpitations. No abdominal pain or constipation. Objective: Vitals (See below) General: Lying in bed, no acute distress, comfortable, Awake / Alert HEENT: NC, AT CVS: +S1S2 Lungs: Fair air entry b/l, no appreciable wheezing, rhonchi, rales Abdomen: Soft, nondistended, without tenderness Extremities: No evidence of lower extremity edema, - Calf tenderness Assessment and plan: Left hip intertrochanteric fracture s/p mechanical fall - Postop day #4 tolerated - orthopedic surgery on consultation - Pain control and anticoagulation and physical therapy based on recommendations by orthopedic surgery - Patient will likely require placement to subacute rehabilitation center CAD s/p CABG - c/w ASA she - hx of adverse rxn statins - curiously she is not on a beta manny we'll defer to her outpatient providers - no active symptoms at this time, stable Chronic hypoxic and hypercapnic respiratory failure 2/2 COPD & active tobacco use - Chronically on 2-3L NC oxygen - c/w nebs & nicotine patch Depression: - c/w Sertraline Dementia - at baseline Malnourishment - BMI 14, likely worsened by baseline dementia. GERD - c/w Omeprazole DVT prophylaxis - as per orthopedic surgery Disposition: - Awaiting possible watermelon harvesting supervisor placement, PFS on board VS,Michelle, I+O VS, Michelle, I+O Laboratory Tests 02/17/19 06:22 Red Blood Count 3.02 L, Mean Corpuscular Volume 92.1, Mean Corpuscular Hemoglobin 31.1, Mean Corpuscular Hemoglobin Concent 33.8, Red Cell Distribution Width 13.5, Calcium Level 8.6 L Vital Signs Date Time Temp Pulse Resp B/P (MAP) Pulse Ox O2 Delivery O2 Flow Rate FiO2 02/17/19 10:00 97.6 94 18 121/71 (88) 100 3.0 02/12/19 22:49 Nasal Cannula I&O- Last 24 Hours up to 6 AM 02/17/19 06:00 Intake Total 1620 ml Output Total 2100 ml Balance -480 ml SOCORRO GLEASON MD Feb 17, 2019 14:47
[2019-02-17] MEDS: RIVAROXABAN 10 MG TAB (XARELTO) PO SCH (17:33)
[2019-02-17] MEDS: ACETAMINOPHEN 325 MG TAB PO PRN (20:30)
[2019-02-17 22:00] VITALS: BP 123/71
[2019-02-18 05:45] LABS: HEMATOCRIT 27.3 % (36.0-47.0); HEMOGLOBIN 9.1 g/dl (12.0-15.5); MEAN CORPUSCULAR HEMOGLOBIN 31.6 pg (27.0-33.0); MEAN CORPUSCULAR HGB CONC 33.3 g/dl (32.0-36.5); MEAN CORPUSCULAR VOLUME 94.8 fl (80.0-96.0); PLATELET COUNT, AUTOMATED 257 10^3/uL (150-450); RED BLOOD COUNT 2.88 10^6/uL (4.00-5.40); WHITE BLOOD COUNT 4.4 10^3/uL (4.0-10.0)
[2019-02-18 06:00] VITALS: BP 103/48
[2019-02-18 06:09] LABS: BLOOD UREA NITROGEN 5 MG/DL (7-18); CALCIUM LEVEL 8.2 MG/DL (8.8-10.2); CARBON DIOXIDE LEVEL 36 MEQ/L (21-32); CHLORIDE LEVEL 92 MEQ/L (98-107); CREATININE FOR GFR 0.52 MG/DL (0.55-1.30); GLOMERULAR FILTRATION RATE > 60.0 (>39); GLUCOSE, FASTING 148 MG/DL (70-100); POTASSIUM SERUM 3.3 MEQ/L (3.5-5.1); SODIUM LEVEL 132 MEQ/L (136-145)
[2019-02-18] MEDS ORDERED: POTASSIUM CHLORIDE 10 MEQ SR TABLET PO ONE (07:30)
--- NOTE | 2019-02-18 07:52 | IPN ---
DATE: 02/18/2019 CHIEF COMPLAINT: Postoperative left hip IM nail for intertrochanteric hip fracture. HISTORY OF PRESENT ILLNESS: This 74-year-old female has baseline dementia. She is seen in the [place] [address] She is postoperative from a left hip IM nail for intertrochanteric hip fracture. This was performed approximately 5 days ago. She is up to use the washroom this morning. PHYSICAL EXAMINATION: Well-appearing 74 old female. She is ambulating with one assist and a walker. Dressing is dry. Thigh compartment is soft. No obvious swelling. ASSESSMENT/PLAN: 74-year-old female who is awaiting long-term placement. She has is being appropriately managed by the internal investigator who I thank greatly for their involvement in her care.
[2019-02-18] MEDS: FUROSEMIDE 20 MG TAB PO SCH (08:45)
[2019-02-18] MEDS: OMEPRAZOLE 20 MG CAP PO SCH ×2 (08:45→19:45)
[2019-02-18] MEDS: MIRALAX *UNIT DOSE* 17GM PACKET PO SCH (08:45)
[2019-02-18] MEDS: MULTIVITAMINS/MINERALS THERAP 1 TAB PO SCH (08:45)
[2019-02-18] MEDS: SENOKOT S TAB PO SCH ×2 (08:45→19:44)
[2019-02-18] MEDS: SERTRALINE HCL 50 MG TAB PO SCH ×2 (08:45→19:44)
[2019-02-18] MEDS: MOM 30ML SUSPENSION UDC PO SCH (08:45)
[2019-02-18] MEDS: NICOTINE 21MG/24HR 1 EA TRANSDERMAL TD SCH (08:46)
[2019-02-18] MEDS: SYMBICORT 80/4.5MCG INHALER 6GM INH SCH ×2 (11:43→20:02)
[2019-02-18 14:00] VITALS: BP 109/59
[2019-02-18] MEDS: RIVAROXABAN 10 MG TAB (XARELTO) PO SCH (17:17)
[2019-02-18] MEDS: ACETAMINOPHEN 325 MG TAB PO PRN (19:44)
[2019-02-18 22:00] VITALS: BP 110/59
[2019-02-19 06:00] VITALS: BP 123/68
[2019-02-19 06:24] LABS: HEMATOCRIT 27.3 % (36.0-47.0); MEAN CORPUSCULAR HEMOGLOBIN 31.3 pg (27.0-33.0); MEAN CORPUSCULAR VOLUME 94.8 fl (80.0-96.0); PLATELET COUNT, AUTOMATED 296 10^3/uL (150-450); RED BLOOD COUNT 2.88 10^6/uL (4.00-5.40); WHITE BLOOD COUNT 5.5 10^3/uL (4.0-10.0)
[2019-02-19] MEDS: ACETAMINOPHEN 325 MG TAB PO PRN ×2 (06:25→22:10)
[2019-02-19 06:53] LABS: BLOOD UREA NITROGEN 5 MG/DL (7-18); CALCIUM LEVEL 8.5 MG/DL (8.8-10.2); CARBON DIOXIDE LEVEL 37 MEQ/L (21-32); CHLORIDE LEVEL 95 MEQ/L (98-107); CREATININE FOR GFR 0.39 MG/DL (0.55-1.30); GLOMERULAR FILTRATION RATE > 60.0 (>39); GLUCOSE, FASTING 86 MG/DL (70-100); POTASSIUM SERUM 4.2 MEQ/L (3.5-5.1); SODIUM LEVEL 134 MEQ/L (136-145)
[2019-02-19] MEDS: SYMBICORT 80/4.5MCG INHALER 6GM INH SCH ×2 (07:34→19:43)
[2019-02-19] MEDS: NICOTINE 21MG/24HR 1 EA TRANSDERMAL TD SCH (08:19)
[2019-02-19] MEDS: MOM 30ML SUSPENSION UDC PO SCH (08:19)
[2019-02-19] MEDS: SENOKOT S TAB PO SCH ×2 (08:19→20:36)
[2019-02-19] MEDS: FUROSEMIDE 20 MG TAB PO SCH (08:19)
[2019-02-19] MEDS: OMEPRAZOLE 20 MG CAP PO SCH ×2 (08:19→20:37)
[2019-02-19] MEDS: MULTIVITAMINS/MINERALS THERAP 1 TAB PO SCH (08:19)
[2019-02-19] MEDS: MIRALAX *UNIT DOSE* 17GM PACKET PO SCH (08:19)
[2019-02-19] MEDS: SERTRALINE HCL 50 MG TAB PO SCH ×2 (08:19→20:36)
[2019-02-19 14:00] VITALS: BP 113/65
[2019-02-19] MEDS: RIVAROXABAN 10 MG TAB (XARELTO) PO SCH (17:29)
[2019-02-19 22:00] VITALS: BP 112/68
[2019-02-20 06:00] VITALS: BP 115/70
[2019-02-20 06:19] LABS: HEMATOCRIT 27.5 % (36.0-47.0); MEAN CORPUSCULAR HEMOGLOBIN 30.8 pg (27.0-33.0); MEAN CORPUSCULAR HGB CONC 32.7 g/dl (32.0-36.5); MEAN CORPUSCULAR VOLUME 94.2 fl (80.0-96.0); PLATELET COUNT, AUTOMATED 368 10^3/uL (150-450); RED BLOOD COUNT 2.92 10^6/uL (4.00-5.40); WHITE BLOOD COUNT 5.6 10^3/uL (4.0-10.0)
[2019-02-20 06:39] LABS: BLOOD UREA NITROGEN 6 MG/DL (7-18); CALCIUM LEVEL 8.3 MG/DL (8.8-10.2); CARBON DIOXIDE LEVEL 34 MEQ/L (21-32); CHLORIDE LEVEL 95 MEQ/L (98-107); CREATININE FOR GFR 0.34 MG/DL (0.55-1.30); GLOMERULAR FILTRATION RATE > 60.0 (>39); GLUCOSE, FASTING 87 MG/DL (70-100); POTASSIUM SERUM 4.2 MEQ/L (3.5-5.1); SODIUM LEVEL 134 MEQ/L (136-145)
[2019-02-20 07:07] VITALS: BP 114/68
[2019-02-20] MEDS: SYMBICORT 80/4.5MCG INHALER 6GM INH SCH ×2 (07:20→18:10)
[2019-02-20] MEDS: SENOKOT S TAB PO SCH ×2 (08:28→20:13)
[2019-02-20] MEDS: SERTRALINE HCL 50 MG TAB PO SCH ×2 (08:28→20:13)
[2019-02-20] MEDS: FUROSEMIDE 20 MG TAB PO SCH (08:28)
[2019-02-20] MEDS: MULTIVITAMINS/MINERALS THERAP 1 TAB PO SCH (08:28)
[2019-02-20] MEDS: OMEPRAZOLE 20 MG CAP PO SCH ×2 (08:28→20:13)
[2019-02-20] MEDS: NICOTINE 21MG/24HR 1 EA TRANSDERMAL TD SCH (08:29)
[2019-02-20] MEDS: MIRALAX *UNIT DOSE* 17GM PACKET PO SCH (08:29)
[2019-02-20] MEDS: MOM 30ML SUSPENSION UDC PO SCH (08:29)
[2019-02-20 14:00] VITALS: BP 113/69
[2019-02-20] MEDS: RIVAROXABAN 10 MG TAB (XARELTO) PO SCH (18:49)
[2019-02-21] MEDS: ACETAMINOPHEN 325 MG TAB PO PRN ×2 (03:05→08:11)
[2019-02-21 06:00] VITALS: BP 122/70
[2019-02-21 06:28] LABS: HEMATOCRIT 26.9 % (36.0-47.0); HEMOGLOBIN 8.9 g/dl (12.0-15.5); MEAN CORPUSCULAR HEMOGLOBIN 30.5 pg (27.0-33.0); MEAN CORPUSCULAR HGB CONC 33.1 g/dl (32.0-36.5); MEAN CORPUSCULAR VOLUME 92.1 fl (80.0-96.0); PLATELET COUNT, AUTOMATED 424 10^3/uL (150-450); RED BLOOD COUNT 2.92 10^6/uL (4.00-5.40); WHITE BLOOD COUNT 5.8 10^3/uL (4.0-10.0)
[2019-02-21 06:52] LABS: BLOOD UREA NITROGEN 7 MG/DL (7-18); CREATININE FOR GFR 0.39 MG/DL (0.55-1.30); GLUCOSE, FASTING 91 MG/DL (70-100)
[2019-02-21 06:53] LABS: CARBON DIOXIDE LEVEL 35 MEQ/L (21-32); CHLORIDE LEVEL 94 MEQ/L (98-107); GLOMERULAR FILTRATION RATE > 60.0 (>39); POTASSIUM SERUM 4.1 MEQ/L (3.5-5.1); SODIUM LEVEL 133 MEQ/L (136-145)
[2019-02-21] MEDS: SYMBICORT 80/4.5MCG INHALER 6GM INH SCH ×2 (07:20→19:30)
[2019-02-21] MEDS: SENOKOT S TAB PO SCH ×2 (08:10→20:19)
[2019-02-21] MEDS: NICOTINE 21MG/24HR 1 EA TRANSDERMAL TD SCH (08:10)
[2019-02-21] MEDS: MULTIVITAMINS/MINERALS THERAP 1 TAB PO SCH (08:10)
[2019-02-21] MEDS: SERTRALINE HCL 50 MG TAB PO SCH ×2 (08:11→20:19)
[2019-02-21] MEDS: MIRALAX *UNIT DOSE* 17GM PACKET PO SCH (08:11)
[2019-02-21] MEDS: MOM 30ML SUSPENSION UDC PO SCH (08:11)
[2019-02-21] MEDS: FUROSEMIDE 20 MG TAB PO SCH (08:11)
[2019-02-21] MEDS: OMEPRAZOLE 20 MG CAP PO SCH ×2 (08:12→20:18)
[2019-02-21 14:00] VITALS: BP 102/54
[2019-02-21] MEDS: RIVAROXABAN 10 MG TAB (XARELTO) PO SCH (17:51)
[2019-02-22 05:38] LABS: HEMATOCRIT 26.2 % (36.0-47.0); HEMOGLOBIN 8.8 g/dl (12.0-15.5); MEAN CORPUSCULAR HEMOGLOBIN 30.9 pg (27.0-33.0); MEAN CORPUSCULAR HGB CONC 33.6 g/dl (32.0-36.5); MEAN CORPUSCULAR VOLUME 91.9 fl (80.0-96.0); PLATELET COUNT, AUTOMATED 491 10^3/uL (150-450); RED BLOOD COUNT 2.85 10^6/uL (4.00-5.40); WHITE BLOOD COUNT 6.5 10^3/uL (4.0-10.0)
[2019-02-22 06:00] VITALS: BP 121/66
[2019-02-22 06:00] LABS: BLOOD UREA NITROGEN 6 MG/DL (7-18); CALCIUM LEVEL 8.7 MG/DL (8.8-10.2); CARBON DIOXIDE LEVEL 36 MEQ/L (21-32); CHLORIDE LEVEL 94 MEQ/L (98-107); CREATININE FOR GFR 0.41 MG/DL (0.55-1.30); GLOMERULAR FILTRATION RATE > 60.0 (>39); GLUCOSE, FASTING 86 MG/DL (70-100); POTASSIUM SERUM 4.1 MEQ/L (3.5-5.1); SODIUM LEVEL 132 MEQ/L (136-145)
[2019-02-22] MEDS: SYMBICORT 80/4.5MCG INHALER 6GM INH SCH (07:21)
[2019-02-22] MEDS: MOM 30ML SUSPENSION UDC PO SCH (08:15)
[2019-02-22] MEDS: MIRALAX *UNIT DOSE* 17GM PACKET PO SCH (08:15)
[2019-02-22] MEDS: SERTRALINE HCL 50 MG TAB PO SCH (08:16)
[2019-02-22] MEDS: MULTIVITAMINS/MINERALS THERAP 1 TAB PO SCH (08:16)
[2019-02-22] MEDS: FUROSEMIDE 20 MG TAB PO SCH (08:16)
[2019-02-22] MEDS: SENOKOT S TAB PO SCH (08:16)
[2019-02-22] MEDS: ACETAMINOPHEN 325 MG TAB PO PRN (08:16)
[2019-02-22] MEDS: OMEPRAZOLE 20 MG CAP PO SCH (08:16)
[2019-02-22] MEDS: NICOTINE 21MG/24HR 1 EA TRANSDERMAL TD SCH (08:20)
[2019-02-22] MEDS ORDERED: ACET325C PO (10:08)
--- NOTE | 2019-02-22 11:05 | DS.PDOC ---
Discharge Summary General Date of Admission Feb 12, 2019 at 20:50 Date of Discharge 02/22/2019 Discharge Summary PROCEDURES PERFORMED DURING STAY: 02/13/19: Left hip intramedullary (IM) nail, open reduction internal fixation with Dr. Pham Bauer ADMITTING DIAGNOSES / DISCHARGE DIAGNOSES: Left hip intertrochanteric fracture s/p mechanical fall CAD s/p CABG Chronic hypoxic and hypercapnic respiratory failure 2/2 COPD & active tobacco use Depression: Dementia Malnourishment GERD DVT prophylaxis COMPLICATIONS/CHIEF COMPLAINT: Shortness of breath HISTORY OF PRESENT ILLNESS: Patient is a 74-year-old female with PMHx of COPD, Dementia, CAD s/p CABG who presented to the ER with after she had fallen forward home and complained of left hip pain. Upon arrival to emergency room, patient had imaging completed which was consistent with left hip fracture. Patient was admitted to hospital service for further evaluation and treatment. Orthopedic surgery was called on consultation. HOSPITAL COURSE: Left hip intertrochanteric fracture s/p mechanical fall - s/p Surgery on 02/13 for Left hip intramedullary nail ORIF - Orthopedic surgery on consultation - Pain control and anticoagulation and physical therapy based on recommendations by orthopedic surgery - Patient will be transition to [facility] for group home CAD s/p CABG - c/w ASA she - hx of adverse rxn statins - curiously she is not on a beta manny we'll defer to her outpatient providers - no active symptoms at this time, stable Chronic hypoxic and hypercapnic respiratory failure 2/2 COPD & active tobacco use - Chronically on 2-3L NC oxygen - c/w nebs & nicotine patch Depression: - c/w Sertraline Dementia - at baseline Malnourishment - BMI 14, likely worsened by baseline dementia. GERD - c/w Omeprazole DVT prophylaxis - as per orthopedic surgery DISCHARGE MEDICATIONS: Please see below. ALLERGIES: Please see below. PHYSICAL EXAMINATION ON DISCHARGE: Vitals (See below) General: Lying in bed, no acute distress, comfortable, Awake / Alert HEENT: NC, AT CVS: +S1S2 Lungs: Fair air entry b/l, auscultation without rhonchi, rales or wheezing Abdomen: Soft, no evidence of lower extremity edema, calf tenderness Extremities: No evidence of lower extremity edema, - Calf tenderness LABORATORY DATA: Please see below. ACTIVITY: [As tolerated]. DISCHARGE PLAN: Follow-up with Dr.J. Conner and Dr. Jeronimo Bauer within 7 days Remain compliant with treatment plan and medications Return to the ER if you experience any problems DISPOSITION: [facility] DISCHARGE CONDITION: [Stable]. TIME SPENT ON DISCHARGE: 37 minutes Vital Signs/I&Os Vital Signs Date Time Temp Pulse Resp B/P (MAP) Pulse Ox O2 Delivery O2 Flow Rate FiO2 02/22/19 09:00 3.0 02/22/19 06:00 97.9 86 18 121/66 (84) 100 I&O- Last 24 Hours up to 6 AM 02/22/19 06:00 Intake Total 1600 ml Output Total 0 ml Balance 1600 ml Laboratory Data Labs 24H Laboratory Tests 2 02/22/19 05:04: Nucleated Red Blood Cells % (auto) 0.0, Anion Gap 2L, Glomerular Filtration Rate > 60.0, Blood Urea Nitrogen 6L, Creatinine 0.41L, Sodium Level 132L, Potassium Level 4.1, Chloride Level 94L, Carbon Dioxide Level 36H, Calcium Level 8.7L CBC/BMP Laboratory Tests 02/22/19 05:04 Red Blood Count 2.85 L, Mean Corpuscular Volume 91.9, Mean Corpuscular Hemoglobin 30.9, Mean Corpuscular Hemoglobin Concent 33.6, Red Cell Distribution Width 14.2, Calcium Level 8.7 L Discharge Medications Scheduled Budesonide/Formoterol (Symbicort 80-4.5 Mcg Inhaler) 60 Puff/Inhaler Aers, 2 PUFF INH BID, (Reported) Cholecalciferol (Vitamin D3) (D-5000 Maximum Strength) 5,000 Unit Capsule, 5,000 UNITS PO DAILY, (Reported) Furosemide (Furosemide) 40 Mg Tablet, 20 MG PO DAILY, (Reported) Multivit-Min/FA/Lycopen/Lutein (Centrum Silver Tablet) 1 Each Tablet, 1 TAB PO DAILY, (Reported) Omeprazole (Omeprazole) 20 Mg Capsule.dr, 20 MG PO BID, (Reported) Rivaroxaban (Xarelto) 10 Mg Tablet, 10 MG PO DAILY Sertraline Hcl (Sertraline HCl) 50 Mg Tablet, 50 MG PO BID, (Reported) Scheduled PRN Acetaminophen (Tylenol) 325 Mg Capsule, 650 MG PO Q4H PRN for MODERATE/SEVERE PAIN (PS 5-10) Albuterol Sulfate (Proair Hfa) 108 Mcg/Act Aer, 2 PUFFS INH TID PRN for SHORTNESS OF BREATH, (Reported) Allergies Coded Allergies: alendronate sodium (Verified Allergy, Unknown, hives, 02/12/19) atorvastatin (Verified Allergy, Unknown, unk, 02/12/19) clopidogrel (Verified Allergy, Unknown, hives, 02/12/19) fentanyl (Verified Allergy, Unknown, cardiac arrest, 02/12/19) nickel (Verified Allergy, Unknown, unk, 02/12/19) SOCORRO GLEASON MD Feb 22, 2019 11:05
== END 2019-02-22 11:20 | DRG 481 ==
LOC: EDBD 18:04 → M ED 18:04 → M ED INP 20:50 → M MS5PR 23:08
PROVIDERS: ADMIT Internal Medicine; ATTEND Internal Medicine
PROC: 0QS706Z Reposition Left Upper Femur with Intramedullary Internal Fixation Device, Open Approach (ICD-10-PCS; principal; 2019-02-13 13:30)
DX: S72.142A Displaced intertrochanteric fracture of left femur, initial encounter for closed fracture (principal); J96.11 Chronic respiratory failure with hypoxia; J96.12 Chronic respiratory failure with hypercapnia; E46 Unspecified protein-calorie malnutrition; Z68.1 Body mass index [BMI] 19.9 or less, adult; F03.90 Unspecified dementia, unspecified severity, without behavioral disturbance, psychotic disturbance, mood disturbance, and anxiety; J44.9 Chronic obstructive pulmonary disease, unspecified; I25.10 Atherosclerotic heart disease of native coronary artery without angina pectoris; Z95.1 Presence of aortocoronary bypass graft; F17.200 Nicotine dependence, unspecified, uncomplicated; F32.9 Major depressive disorder, single episode, unspecified; K21.9 Gastro-esophageal reflux disease without esophagitis; Z79.899 Other long term (current) drug therapy; Z88.8 Allergy status to other drugs, medicaments and biological substances; W18.30XA Fall on same level, unspecified, initial encounter; Y92.009 Unspecified place in unspecified non-institutional (private) residence as the place of occurrence of the external cause; Z79.82 Long term (current) use of aspirin

== ENCOUNTER → 2019-03-08 | Outpatient (REF) ==
[~2019-03-08] MED LIST changes: +ACET325C PO; +CENT1TAB PO; +D-50CAP PO; +FURO40TA2 PO; +OMEP-218 PO; +SERT-141 PO; +XARE10TA PO
[2019-03-08 09:40] LABS: HEMOGLOBIN 11.8 g/dl (12.0-15.5); MEAN CORPUSCULAR HEMOGLOBIN 30.7 pg (27.0-33.0); MEAN CORPUSCULAR HGB CONC 31.9 g/dl (32.0-36.5); MEAN CORPUSCULAR VOLUME 96.4 fl (80.0-96.0); PLATELET COUNT, AUTOMATED 418 10^3/uL (150-450); RED BLOOD COUNT 3.84 10^6/uL (4.00-5.40); WHITE BLOOD COUNT 7.2 10^3/uL (4.0-10.0)
[2019-03-08 11:05] LABS: TOTAL 25(OH) VITAMIN D 47.1 NG/ML (30.0-100.0)
--- NOTE | 2019-03-08 14:40 | REP ---
REASON: Posterior pain. PRIORS: None. The bones are demineralized. There is no evidence of an acute fracture. There is no gross plain radiographic evidence of an effusion. IMPRESSION: Chronic changes. Electronically Signed by Blue Hansen DO 03/08/2019 04:38 P
== END ==
LOC: SKLAB3 06:56
PROVIDERS: ATTEND Internal Medicine
DX: D64.9 Anemia, unspecified (principal); E55.9 Vitamin D deficiency, unspecified

== ENCOUNTER → 2019-03-08 | Outpatient (CLI) | payer MEDICARE ==
--- NOTE | 2019-03-08 12:09 | REP ---
Left lower extremity deep vein duplex ultrasound for thrombus: The deep veins of the left lower extremity demonstrate normal compression, normal Doppler color flow and normal Doppler waveforms with respiration and augmentation from the popliteal vein to the common femoral vein. Impression: There is no left lower extremity deep vein thrombus. Electronically Signed by Moisés Juares MD 03/08/2019 12:01 P
== END ==
LOC: M RAD 11:05
PROVIDERS: ATTEND Nurse Practitioner Family
DX: M79.605 Pain in left leg (principal)

== ENCOUNTER → 2019-03-15 | Outpatient (REF) ==
[~2019-03-15] MED LIST changes: -ACET325C PO; +ACET325C5 PO
[2019-03-15 08:00] LABS: HEMATOCRIT 34.8 % (36.0-47.0); HEMOGLOBIN 11.2 g/dl (12.0-15.5); MEAN CORPUSCULAR HEMOGLOBIN 31.5 pg (27.0-33.0); MEAN CORPUSCULAR HGB CONC 32.2 g/dl (32.0-36.5); PLATELET COUNT, AUTOMATED 334 10^3/uL (150-450); RED BLOOD COUNT 3.55 10^6/uL (4.00-5.40)
== END ==
LOC: SKLAB3 07:00
PROVIDERS: ATTEND Internal Medicine
DX: D64.9 Anemia, unspecified (principal)

== ENCOUNTER → 2019-03-29 | Outpatient (REF) ==
[2019-03-29 08:01] LABS: HEMATOCRIT 36.6 % (36.0-47.0); HEMOGLOBIN 11.7 g/dl (12.0-15.5); MEAN CORPUSCULAR HEMOGLOBIN 30.6 pg (27.0-33.0); MEAN CORPUSCULAR VOLUME 95.8 fl (80.0-96.0); PLATELET COUNT, AUTOMATED 398 10^3/uL (150-450); RED BLOOD COUNT 3.82 10^6/uL (4.00-5.40)
== END ==
LOC: SKLAB3 07:00
PROVIDERS: ATTEND Internal Medicine
DX: D64.9 Anemia, unspecified (principal)

== ENCOUNTER → 2019-04-05 | Outpatient (REF) | payer MEDICARE ==
[2019-04-05 09:24] LABS: HEMATOCRIT 35.6 % (36.0-47.0); HEMOGLOBIN 11.5 g/dl (12.0-15.5); MEAN CORPUSCULAR HGB CONC 32.3 g/dl (32.0-36.5); PLATELET COUNT, AUTOMATED 310 10^3/uL (150-450); RED BLOOD COUNT 3.71 10^6/uL (4.00-5.40); WHITE BLOOD COUNT 5.6 10^3/uL (4.0-10.0)
== END ==
LOC: SKLAB3 07:00
PROVIDERS: ATTEND Internal Medicine
DX: D64.9 Anemia, unspecified (principal)

== ENCOUNTER → 2019-07-05 | Outpatient (REF) | payer MEDICARE ==
[2019-07-05 09:05] LABS: HEMATOCRIT 34.2 % (36.0-47.0); HEMOGLOBIN 11.1 g/dl (12.0-15.5); MEAN CORPUSCULAR HGB CONC 32.5 g/dl (32.0-36.5); MEAN CORPUSCULAR VOLUME 92.4 fl (80.0-96.0); PLATELET COUNT, AUTOMATED 293 10^3/uL (150-450); WHITE BLOOD COUNT 6.7 10^3/uL (4.0-10.0)
== END ==
LOC: SKLAB3 14:31
PROVIDERS: ATTEND Internal Medicine
DX: D64.9 Anemia, unspecified (principal)

== ENCOUNTER 2019-07-17 17:38 | Emergency (ER) | payer MEDICARE ==
[~2019-07-17 17:38] MED LIST changes: -APAP325T4 PO; -ASPI81TA85 PO; -DULC10SU2 PR; -ENEMENE PR; -FAMO20TA PO; -FURO20TA2 PO; -MOM30SS PO; -VITA500079 PO
[2019-07-17] MEDS ORDERED: MOM30SS PO (18:51)
[2019-07-17] MEDS ORDERED: VITA500079 PO (18:51)
[2019-07-17] MEDS ORDERED: IPRA0.00 INH (18:51)
[2019-07-17] MEDS ORDERED: ASPI81TA85 PO (18:51)
[2019-07-17] MEDS ORDERED: APAP325T4 PO (18:51)
[2019-07-17] MEDS ORDERED: DULC10SU2 PR (18:51)
[2019-07-17] MEDS ORDERED: ENEMENE PR (18:51)
[2019-07-17] MEDS ORDERED: FURO20TA2 PO (18:51)
[2019-07-17] MEDS ORDERED: FAMO20TA PO (18:51)
[2019-07-17 19:16] VITALS: BP 150/75
[2019-07-17] MEDS ORDERED: ACETAMINOPHEN TAB 650MG DOSE (2X325MG) PO ONE (20:30)
--- NOTE | 2019-07-18 07:37 | REP ---
Clinical: Trauma. Fall. Comparison: 08/20/2017 Findings: The mediastinum and cardiac silhouette are stable and within normal limits for portable technique. The lung fernandez demonstrate diffuse chronic interstitial changes with COPD/emphysematous disease without acute consolidation, effusion, or pneumothorax. Skeletal structures are intact. Impression: No acute cardiopulmonary process appreciated. Electronically Signed by Miguelito Malin MD 07/18/2019 07:29 A
--- NOTE | 2019-07-18 07:49 | REP ---
Clinical: Trauma. Fall. Technique: AP, lateral, bilateral oblique views of the left hand. Findings: Generalized age-related osteopenia and degenerative changes are appreciated. Colles' fracture of the distal radial metaphysis noted along with ulnar styloid fracture. Impression: Colles' fracture of the distal radius. Ulnar styloid fracture. Electronically Signed by Miguelito Malin MD 07/18/2019 07:41 A
--- NOTE | 2019-07-18 07:51 | REP ---
Clinical: Trauma. Fall. Technique: Frontal view of the pelvis with neutral and frog lateral views of the left hip. Findings: Evidence of prior left hip fixation. Age-related osteopenia and degenerative changes are appreciated. No acute fracture or dislocation identified. Impression: No acute fracture or dislocation appreciated. Electronically Signed by Miguelito Malin MD 07/18/2019 07:42 A
--- NOTE | 2019-07-19 07:34 | ED PDOC ---
Post-Departure Follow-Up left hand film faxed to magdiel and dr feliciano for fu lmlg Geoffrey Torres MD Jul 19, 2019 07:34
== END 2019-07-17 21:16 | disposition home or self-care (01) ==
LOC: EDBD 17:38 → M ED 17:38
DX: S52.532A Colles' fracture of left radius, initial encounter for closed fracture (principal); S52.612A Displaced fracture of left ulna styloid process, initial encounter for closed fracture; W01.0XXA Fall on same level from slipping, tripping and stumbling without subsequent striking against object, initial encounter; Y92.129 Unspecified place in nursing home as the place of occurrence of the external cause; M85.842 Other specified disorders of bone density and structure, left hand; M19.042 Primary osteoarthritis, left hand; F03.90 Unspecified dementia, unspecified severity, without behavioral disturbance, psychotic disturbance, mood disturbance, and anxiety; Z88.8 Allergy status to other drugs, medicaments and biological substances; Z88.6 Allergy status to analgesic agent; Z91.048 Other nonmedicinal substance allergy status; Z79.51 Long term (current) use of inhaled steroids; Z79.82 Long term (current) use of aspirin; Z79.83 Long term (current) use of bisphosphonates; Z79.899 Other long term (current) drug therapy

== ENCOUNTER → 2019-07-17 | Outpatient (REF) | payer MEDICARE ==
[~2019-07-17] MED LIST changes: +APAP325T4 PO; +ASPI81TA85 PO; +DULC10SU2 PR; +ENEMENE PR; +FAMO20TA PO; +FURO20TA2 PO; +MOM30SS PO; +VITA500079 PO
[2019-07-18 06:37] LABS: APPEARANCE, URINE HAZY (CLEAR); BACTERIA, URINE AUTO 1+ (NEGATIVE); BILIRUBIN, URINE AUTO NEGATIVE (NEGATIVE); BLOOD, URINE BLOOD NEGATIVE (NEGATIVE); COLOR, URINE YELLOW (YELLOW); GLUCOSE, URINE (UA) AUTO NEGATIVE (NEGATIVE); KETONE, URINE AUTO NEGATIVE (NEGATIVE); LEUKOCYTE ESTERASE, URINE AUTO 3+ (NEGATIVE); NITRITE, URINE AUTO NEGATIVE (NEGATIVE); PROTEIN, URINE AUTO NEGATIVE (NEGATIVE); RBC, URINE AUTO 2 /HPF (0-3); SPECIFIC GRAVITY URINE AUTO 1.008 (1.002-1.035); SQUAMOUS EPITHELIAL CELL UR AU 4 /HPF (0-6); UROBILINOGEN, URINE AUTO 0.2 mg/dL (0.0-2.0); WBC, URINE AUTO 24 /HPF (0-3)
== END ==
LOC: SKLAB3 17:43
PROVIDERS: ATTEND Internal Medicine
DX: R41.0 Disorientation, unspecified (principal)

== ENCOUNTER → 2019-07-29 | Outpatient (REF) | payer MEDICARE ==
[~2019-07-29] MED LIST changes: +APAP325T4 PO; +ASPI81TA85 PO; +DULC10SU2 PR; +ENEMENE PR; +FAMO20TA PO; +FURO20TA2 PO; +MOM30SS PO; +VITA500079 PO
--- NOTE | 2019-07-29 15:26 | REP ---
INDICATION: Pain PROCEDURE: Plain film lumbar spine COMPARISON STUDIES: CT abdomen pelvis without contrast 02/11/2019. FINDINGS: There is a right convex lumbar curvature apex approximately L3. The curvature somewhat confounds image interpretation. There is a heavily calcified descending aorta which is incompletely imaged. No miquel malalignments listhesis. No evidence for fracture. CONCLUSION: Lumbar curvature and heavily calcified aorta confound interpretation. Given this limitation, no acute findings. No evidence of fracture or acute subluxation. Electronically Signed by Anthony Flores MD 07/29/2019 03:18 P
--- NOTE | 2019-07-29 17:18 | REP ---
AP pelvis: Single view: History: Pain. Comparison study July 17, 2019. Findings: There is a pin in the left hip as before. The bony pelvic ring appears intact as seen. The patient is rotated somewhat to the left for the current exposure. No pelvic or hip fracture is seen. There is diffuse osteopenia. No sacral fracture is visible. Bowel gas pattern is normal as visualized. Impression: No acute fracture noted. Electronically Signed by Baldo Orlando MD 07/29/2019 06:34 P
--- NOTE | 2019-07-29 17:19 | REP ---
Sacrum and coccyx series: Three views. History: Pain. Comparison study July 17, 2019. Findings: Oblique and lateral views of the sacrum and coccyx show no visible coccygeal or sacral fracture. Presacral soft tissues are not widened. No sacral or coccygeal displacement is seen. There is degenerative disc narrowing at L5-S1. Vascular calcifications noted. Impression: No fracture seen. Electronically Signed by Baldo Orlando MD 07/29/2019 06:34 P
--- NOTE | 2019-07-29 17:19 | REP ---
Right hip: Three views. History: Pain. Findings: AP and frog-leg views of the right hip show mild spurring of the greater trochanter. There is diffuse osteopenia. No fracture is seen. Impression: No fracture noted. Diffuse osteopenia. Greater trochanteric spurring. Electronically Signed by Baldo Orlando MD 07/29/2019 06:34 P
== END ==
LOC: SKLAB3 12:53
PROVIDERS: ATTEND Internal Medicine
DX: G89.11 Acute pain due to trauma (principal); M85.88 Other specified disorders of bone density and structure, other site

== ENCOUNTER → 2019-09-06 | Outpatient (REF) | payer MEDICARE ==
[~2019-09-06] MED LIST changes: -LORA0.5T11 PO; +LORA0.5T5 PO
[2019-09-06 09:06] LABS: ALBUMIN 3.7 GM/DL (3.2-5.2); ALT/SGPT 22 U/L (12-78); BILIRUBIN,TOTAL 0.2 MG/DL (0.2-1.0); BLOOD UREA NITROGEN 15 MG/DL (7-18); CALCIUM LEVEL 9.5 MG/DL (8.8-10.2); CARBON DIOXIDE LEVEL 35 MEQ/L (21-32); CHLORIDE LEVEL 99 MEQ/L (98-107); CREATININE FOR GFR 0.47 MG/DL (0.55-1.30); GLOMERULAR FILTRATION RATE > 60.0 (>39); GLUCOSE, FASTING 92 MG/DL (70-100); POTASSIUM SERUM 4.7 MEQ/L (3.5-5.1); SODIUM LEVEL 136 MEQ/L (136-145); TOTAL PROTEIN 6.8 GM/DL (6.4-8.2)
[2019-09-06 10:25] LABS: TOTAL 25(OH) VITAMIN D 87.9 NG/ML (30.0-100.0)
== END ==
LOC: SKLAB3 07:00
PROVIDERS: ATTEND Internal Medicine
DX: I25.10 Atherosclerotic heart disease of native coronary artery without angina pectoris (principal); I10 Essential (primary) hypertension; E55.9 Vitamin D deficiency, unspecified; Z79.899 Other long term (current) drug therapy

== ENCOUNTER → 2019-10-04 | Outpatient (REF) | payer MEDICARE ==
[2019-10-04 09:03] LABS: HEMATOCRIT 35.8 % (36.0-47.0); HEMOGLOBIN 11.4 g/dl (12.0-15.5); MEAN CORPUSCULAR HEMOGLOBIN 29.8 pg (27.0-33.0); MEAN CORPUSCULAR HGB CONC 31.8 g/dl (32.0-36.5); MEAN CORPUSCULAR VOLUME 93.7 fl (80.0-96.0); PLATELET COUNT, AUTOMATED 312 10^3/uL (150-450); RED BLOOD COUNT 3.82 10^6/uL (4.00-5.40); WHITE BLOOD COUNT 4.9 10^3/uL (4.0-10.0)
== END ==
LOC: SKLAB3 09:04
PROVIDERS: ATTEND Internal Medicine
DX: D64.9 Anemia, unspecified (principal)

== ENCOUNTER → 2019-11-30 | Outpatient (REF) | LOC: SKLAB3 07:00 | PROVIDERS: ATTEND Internal Medicine | DX: Z11.59 Encounter for screening for other viral diseases (principal) ==

== ENCOUNTER → 2020-01-04 | Outpatient (REF) | payer MEDICARE ==
[2020-01-04 08:59] LABS: HEMATOCRIT 33.2 % (36.0-47.0); HEMOGLOBIN 10.6 g/dl (12.0-15.5); MEAN CORPUSCULAR HGB CONC 31.9 g/dl (32.0-36.5); MEAN CORPUSCULAR VOLUME 94.1 fl (80.0-96.0); PLATELET COUNT, AUTOMATED 239 10^3/uL (150-450); RED BLOOD COUNT 3.53 10^6/uL (4.00-5.40); WHITE BLOOD COUNT 4.7 10^3/uL (4.0-10.0)
[2020-01-04 09:33] LABS: CHOLESTEROL RISK RATIO 2.766 (<5)
== END ==
LOC: SKLAB3 08:15
PROVIDERS: ATTEND Internal Medicine
DX: D64.9 Anemia, unspecified (principal); E78.5 Hyperlipidemia, unspecified

== ENCOUNTER → 2020-06-01 | Outpatient (REF) ==
[~2020-06-01] MED LIST changes: -ASPI81TA85 PO; +ASPI81TA86 PO
== END ==
LOC: SKLAB3 11:41
PROVIDERS: ATTEND Internal Medicine
DX: Z20.828 Contact with and (suspected) exposure to other viral communicable diseases (principal)

== ENCOUNTER → 2020-06-07 | Outpatient (REF) | payer MEDICARE | LOC: SKLAB3 06-06 14:12 → EDSTATUS 06-30 14:03 | PROVIDERS: ATTEND Internal Medicine | DX: Z20.828 Contact with and (suspected) exposure to other viral communicable diseases (principal) ==

== ENCOUNTER → 2020-06-14 | Outpatient (REF) | payer MEDICARE | LOC: SKLAB3 08:00 | PROVIDERS: ATTEND Internal Medicine | DX: Z20.828 Contact with and (suspected) exposure to other viral communicable diseases (principal) ==

== ENCOUNTER → 2020-06-21 | Outpatient (REF) | payer MEDICARE | LOC: SKLAB3 08:00 | PROVIDERS: ATTEND Internal Medicine | DX: Z20.828 Contact with and (suspected) exposure to other viral communicable diseases (principal) ==

== ENCOUNTER → 2020-06-28 | Outpatient (REF) | payer MEDICARE | LOC: SKLAB3 07:14 | PROVIDERS: ATTEND Internal Medicine | DX: Z20.828 Contact with and (suspected) exposure to other viral communicable diseases (principal) ==

== ENCOUNTER → 2020-07-05 | Outpatient (REF) | payer MEDICARE | LOC: SKLAB3 10:24 | PROVIDERS: ATTEND Internal Medicine | DX: Z20.828 Contact with and (suspected) exposure to other viral communicable diseases (principal) ==

== ENCOUNTER → 2020-07-12 | Outpatient (REF) | payer MEDICARE | LOC: SKLAB3 07:00 | PROVIDERS: ATTEND Internal Medicine | DX: Z20.828 Contact with and (suspected) exposure to other viral communicable diseases (principal) ==

== ENCOUNTER → 2020-07-19 | Outpatient (REF) | payer MEDICARE | LOC: SKLAB3 07:14 | PROVIDERS: ATTEND Internal Medicine | DX: Z20.828 Contact with and (suspected) exposure to other viral communicable diseases (principal) ==

== ENCOUNTER → 2020-07-26 | Outpatient (REF) | payer MEDICARE | LOC: SKLAB3 09:58 | PROVIDERS: ATTEND Internal Medicine | DX: Z11.52 Encounter for screening for COVID-19 (principal) ==

== ENCOUNTER → 2020-08-02 | Outpatient (REF) | payer MEDICARE | LOC: SKLAB3 07:00 | PROVIDERS: ATTEND Internal Medicine | DX: Z20.828 Contact with and (suspected) exposure to other viral communicable diseases (principal) ==

== ENCOUNTER → 2020-08-09 | Outpatient (REF) | payer MEDICARE | LOC: SKLAB3 07:00 | PROVIDERS: ATTEND Internal Medicine | DX: Z20.822 Contact with and (suspected) exposure to COVID-19 (principal) ==

== ENCOUNTER → 2020-08-16 | Outpatient (REF) | payer MEDICARE | LOC: SKLAB3 15:01 | PROVIDERS: ATTEND Internal Medicine | DX: Z20.822 Contact with and (suspected) exposure to COVID-19 (principal) ==

== ENCOUNTER → 2020-08-23 | Outpatient (REF) | payer MEDICARE | LOC: SKLAB3 07:00 | PROVIDERS: ATTEND Internal Medicine | DX: Z11.52 Encounter for screening for COVID-19 (principal) ==

== ENCOUNTER → 2020-08-30 | Outpatient (REF) | payer MEDICARE | LOC: SKLAB3 11:32 | PROVIDERS: ATTEND Internal Medicine | DX: Z20.822 Contact with and (suspected) exposure to COVID-19 (principal) ==

== ENCOUNTER → 2020-09-06 | Outpatient (REF) | payer MEDICARE | LOC: SKLAB3 14:45 | PROVIDERS: ATTEND Internal Medicine | DX: Z20.822 Contact with and (suspected) exposure to COVID-19 (principal) ==

== ENCOUNTER → 2020-09-13 | Outpatient (REF) | payer MEDICARE | LOC: SKLAB3 07:00 | PROVIDERS: ATTEND Internal Medicine | DX: Z20.822 Contact with and (suspected) exposure to COVID-19 (principal) ==

== ENCOUNTER → 2020-09-22 | Outpatient (REF) | payer MEDICARE ==
[2020-09-22 14:49] LABS: HEMATOCRIT 35.9 % (36.0-47.0); HEMOGLOBIN 11.4 g/dl (12.0-15.5); MEAN CORPUSCULAR HEMOGLOBIN 29.6 pg (27.0-33.0); MEAN CORPUSCULAR HGB CONC 31.8 g/dl (32.0-36.5); MEAN CORPUSCULAR VOLUME 93.2 fl (80.0-96.0); PLATELET COUNT, AUTOMATED 274 10^3/uL (150-450); RED BLOOD COUNT 3.85 10^6/uL (4.00-5.40); WHITE BLOOD COUNT 6.7 10^3/uL (4.0-10.0)
[2020-09-22 15:16] LABS: BLOOD UREA NITROGEN 11 MG/DL (7-18); CALCIUM LEVEL 9.3 MG/DL (8.8-10.2); CARBON DIOXIDE LEVEL 32 MEQ/L (21-32); CHLORIDE LEVEL 99 MEQ/L (98-107); CREATININE FOR GFR 0.59 MG/DL (0.55-1.30); GLOMERULAR FILTRATION RATE > 60.0 (>39); GLUCOSE, FASTING 106 MG/DL (70-100); POTASSIUM SERUM 4.3 MEQ/L (3.5-5.1); SODIUM LEVEL 135 MEQ/L (136-145)
== END ==
LOC: SKLAB3 11:54
PROVIDERS: ATTEND Internal Medicine
DX: R41.0 Disorientation, unspecified (principal)

== ENCOUNTER → 2020-09-27 | Outpatient (REF) | payer MEDICARE | LOC: SKLAB3 14:20 | PROVIDERS: ATTEND Internal Medicine | DX: Z20.822 Contact with and (suspected) exposure to COVID-19 (principal) ==

== ENCOUNTER → 2020-10-04 | Outpatient (REF) | payer MEDICARE | LOC: SKLAB3 07:00 | PROVIDERS: ATTEND Internal Medicine | DX: Z20.822 Contact with and (suspected) exposure to COVID-19 (principal) ==

== ENCOUNTER → 2020-10-20 | Outpatient (REF) | payer MEDICARE | LOC: SKLAB3 08:00 | PROVIDERS: ATTEND Internal Medicine | DX: Z20.822 Contact with and (suspected) exposure to COVID-19 (principal) ==

== ENCOUNTER → 2020-12-05 | Outpatient (REF) | payer MEDICARE ==
[2020-12-05 09:13] LABS: HEMATOCRIT 35.7 % (36.0-47.0); HEMOGLOBIN 11.7 g/dl (12.0-15.5); MEAN CORPUSCULAR HEMOGLOBIN 30.7 pg (27.0-33.0); MEAN CORPUSCULAR HGB CONC 32.8 g/dl (32.0-36.5); MEAN CORPUSCULAR VOLUME 93.7 fl (80.0-96.0); PLATELET COUNT, AUTOMATED 293 10^3/uL (150-450); RED BLOOD COUNT 3.81 10^6/uL (4.00-5.40); WHITE BLOOD COUNT 5.2 10^3/uL (4.0-10.0)
[2020-12-05 09:37] LABS: ALBUMIN 3.7 GM/DL (3.2-5.2); ALT/SGPT 23 U/L (12-78); BILIRUBIN,TOTAL 0.3 MG/DL (0.2-1.0); BLOOD UREA NITROGEN 6 MG/DL (7-18); CALCIUM LEVEL 9.3 MG/DL (8.8-10.2); CARBON DIOXIDE LEVEL 32 MEQ/L (21-32); CHLORIDE LEVEL 102 MEQ/L (98-107); CREATININE FOR GFR 0.58 MG/DL (0.55-1.30); GLOMERULAR FILTRATION RATE > 60.0 (>39); GLUCOSE, FASTING 85 MG/DL (70-100); POTASSIUM SERUM 4.1 MEQ/L (3.5-5.1); SODIUM LEVEL 137 MEQ/L (136-145); TOTAL PROTEIN 7.3 GM/DL (6.4-8.2)
== END ==
LOC: SKLAB3 07:00
PROVIDERS: ATTEND Internal Medicine
DX: D64.9 Anemia, unspecified (principal); I25.10 Atherosclerotic heart disease of native coronary artery without angina pectoris

== ENCOUNTER → 2021-03-06 | Outpatient (REF) | payer MEDICARE ==
[2021-03-06 10:30] LABS: HEMATOCRIT 37.2 % (36.0-47.0); MEAN CORPUSCULAR HEMOGLOBIN 30.2 pg (27.0-33.0); MEAN CORPUSCULAR HGB CONC 32.3 g/dl (32.0-36.5); MEAN CORPUSCULAR VOLUME 93.7 fl (80.0-96.0); PLATELET COUNT, AUTOMATED 265 10^3/uL (150-450); RED BLOOD COUNT 3.97 10^6/uL (4.00-5.40); WHITE BLOOD COUNT 5.8 10^3/uL (4.0-10.0)
== END ==
LOC: SKLAB3 07:00
PROVIDERS: ATTEND Internal Medicine
DX: D64.9 Anemia, unspecified (principal)

== ENCOUNTER → 2021-03-29 | Outpatient (CLI) | payer MEDICARE ==
--- NOTE | 2021-03-29 12:27 | REP ---
INDICATION: Left breast pain COMPARISON: None TECHNIQUE: Real-time sonographic evaluation of the left breast FINDINGS: There are no cystic or solid masses IMPRESSION: ACR category 0 left breast ultrasound. Mammography is recommended. <Electronically signed by Blue Hansen > 03/29/21 [id number]
== END ==
LOC: M WHC 11:40
PROVIDERS: ATTEND Internal Medicine
DX: N64.4 Mastodynia (principal)

== ENCOUNTER → 2021-05-10 | Outpatient (REF) | payer MEDICARE | LOC: SKLAB3 08:42 | PROVIDERS: ATTEND Internal Medicine | DX: Z20.822 Contact with and (suspected) exposure to COVID-19 (principal) ==

== ENCOUNTER → 2021-05-14 | Outpatient (REF) | payer MEDICARE | LOC: SKLAB3 07:01 | PROVIDERS: ATTEND Internal Medicine | DX: Z20.822 Contact with and (suspected) exposure to COVID-19 (principal) ==

== ENCOUNTER → 2021-05-17 | Outpatient (REF) | payer MEDICARE | LOC: SKLAB3 05:44 | PROVIDERS: ATTEND Internal Medicine | DX: Z20.822 Contact with and (suspected) exposure to COVID-19 (principal) ==

== ENCOUNTER → 2021-05-21 | Outpatient (REF) | payer MEDICARE | LOC: SKLAB3 06:19 | PROVIDERS: ATTEND Internal Medicine | DX: Z20.822 Contact with and (suspected) exposure to COVID-19 (principal) ==

== ENCOUNTER → 2021-05-24 | Outpatient (REF) | payer MEDICARE | LOC: SKLAB3 11:21 | PROVIDERS: ATTEND Internal Medicine | DX: Z20.822 Contact with and (suspected) exposure to COVID-19 (principal) ==

== ENCOUNTER → 2021-05-30 | Outpatient (REF) | payer MEDICARE | LOC: SKLAB3 10:43 | PROVIDERS: ATTEND Internal Medicine | DX: Z20.822 Contact with and (suspected) exposure to COVID-19 (principal) ==

== ENCOUNTER → 2021-06-04 | Outpatient (REF) | payer MEDICARE ==
[2021-06-04 09:37] LABS: HEMATOCRIT 37.2 % (36.0-47.0); HEMOGLOBIN 11.9 g/dl (12.0-15.5); MEAN CORPUSCULAR HEMOGLOBIN 29.9 pg (27.0-33.0); MEAN CORPUSCULAR VOLUME 93.5 fl (80.0-96.0); PLATELET COUNT, AUTOMATED 275 10^3/uL (150-450); RED BLOOD COUNT 3.98 10^6/uL (4.00-5.40); WHITE BLOOD COUNT 6.3 10^3/uL (4.0-10.0)
[2021-06-04 10:09] LABS: ALBUMIN 3.6 GM/DL (3.2-5.2); ALT/SGPT 20 U/L (12-78); BILIRUBIN,TOTAL 0.3 MG/DL (0.2-1.0); BLOOD UREA NITROGEN 6 MG/DL (7-18); CALCIUM LEVEL 9.5 MG/DL (8.8-10.2); CARBON DIOXIDE LEVEL 33 MEQ/L (21-32); CHLORIDE LEVEL 96 MEQ/L (98-107); CREATININE FOR GFR 0.67 MG/DL (0.55-1.30); GLOMERULAR FILTRATION RATE > 60.0 (>39); GLUCOSE, FASTING 84 MG/DL (70-100); POTASSIUM SERUM 4.1 MEQ/L (3.5-5.1); SODIUM LEVEL 134 MEQ/L (136-145); TOTAL PROTEIN 7.7 GM/DL (6.4-8.2)
== END ==
LOC: SKLAB3 07:00
PROVIDERS: ATTEND Internal Medicine
DX: D64.9 Anemia, unspecified (principal); I25.10 Atherosclerotic heart disease of native coronary artery without angina pectoris

== ENCOUNTER → 2021-06-06 | Outpatient (REF) | payer MEDICARE | LOC: SKLAB3 08:43 | PROVIDERS: ATTEND Internal Medicine | DX: Z20.822 Contact with and (suspected) exposure to COVID-19 (principal) ==

== ENCOUNTER → 2021-06-27 | Outpatient (REF) | payer MEDICARE | LOC: SKLAB3 07:17 | PROVIDERS: ATTEND Internal Medicine | DX: Z20.822 Contact with and (suspected) exposure to COVID-19 (principal) ==

== ENCOUNTER → 2021-07-04 | Outpatient (REF) | payer MEDICARE | LOC: SKLAB3 07:00 | PROVIDERS: ATTEND Internal Medicine | DX: Z20.822 Contact with and (suspected) exposure to COVID-19 (principal) ==

== ENCOUNTER → 2021-07-11 | Outpatient (REF) | payer MEDICARE | LOC: SKLAB3 11:27 | PROVIDERS: ATTEND Internal Medicine | DX: Z20.822 Contact with and (suspected) exposure to COVID-19 (principal) ==

== ENCOUNTER → 2021-07-18 | Outpatient (REF) | payer MEDICARE | LOC: SKLAB3 07:03 | PROVIDERS: ATTEND Internal Medicine | DX: Z20.822 Contact with and (suspected) exposure to COVID-19 (principal) ==

== ENCOUNTER → 2021-07-25 | Outpatient (REF) | payer MEDICARE | LOC: SKLAB3 09:03 | PROVIDERS: ATTEND Internal Medicine | DX: Z20.822 Contact with and (suspected) exposure to COVID-19 (principal) ==

== ENCOUNTER → 2021-09-04 | Outpatient (REF) | payer MEDICARE ==
[~2021-09-04] MED LIST changes: +OMEP-173 PO; -OMEP-218 PO
[2021-09-04 14:30] LABS: HEMATOCRIT 36.9 % (36.0-47.0); HEMOGLOBIN 11.7 g/dl (12.0-15.5); MEAN CORPUSCULAR HEMOGLOBIN 30.2 pg (27.0-33.0); MEAN CORPUSCULAR HGB CONC 31.7 g/dl (32.0-36.5); MEAN CORPUSCULAR VOLUME 95.1 fl (80.0-96.0); PLATELET COUNT, AUTOMATED 263 10^3/uL (150-450); RED BLOOD COUNT 3.88 10^6/uL (4.00-5.40); WHITE BLOOD COUNT 4.9 10^3/uL (4.0-10.0)
== END ==
LOC: SKLAB3 11:23
PROVIDERS: ATTEND Internal Medicine
DX: D64.9 Anemia, unspecified (principal)

== ENCOUNTER → 2021-12-04 | Outpatient (REF) | payer MEDICARE ==
[2021-12-04 08:15] LABS: HEMATOCRIT 36.7 % (36.0-47.0); HEMOGLOBIN 11.9 g/dl (12.0-15.5); MEAN CORPUSCULAR HEMOGLOBIN 30.3 pg (27.0-33.0); MEAN CORPUSCULAR HGB CONC 32.4 g/dl (32.0-36.5); MEAN CORPUSCULAR VOLUME 93.4 fl (80.0-96.0); PLATELET COUNT, AUTOMATED 237 10^3/uL (150-450); RED BLOOD COUNT 3.93 10^6/uL (4.00-5.40); WHITE BLOOD COUNT 4.8 10^3/uL (4.0-10.0)
[2021-12-04 08:52] LABS: ALBUMIN 3.5 GM/DL (3.2-5.2); ALT/SGPT 21 U/L (12-78); BILIRUBIN,TOTAL 0.3 MG/DL (0.2-1.0); BLOOD UREA NITROGEN 12 MG/DL (7-18); CALCIUM LEVEL 9.3 MG/DL (8.8-10.2); CARBON DIOXIDE LEVEL 30 MEQ/L (21-32); CHLORIDE LEVEL 104 MEQ/L (98-107); CREATININE FOR GFR 0.73 MG/DL (0.55-1.30); GLOMERULAR FILTRATION RATE > 60.0 (>39); GLUCOSE, FASTING 126 MG/DL (70-100); POTASSIUM SERUM 4.1 MEQ/L (3.5-5.1); SODIUM LEVEL 139 MEQ/L (136-145); TOTAL PROTEIN 6.8 GM/DL (6.4-8.2)
== END ==
LOC: SKLAB3 11:25
PROVIDERS: ATTEND Internal Medicine
DX: F03.90 Unspecified dementia, unspecified severity, without behavioral disturbance, psychotic disturbance, mood disturbance, and anxiety (principal); D64.9 Anemia, unspecified; I25.10 Atherosclerotic heart disease of native coronary artery without angina pectoris

== ENCOUNTER → 2022-02-15 | Outpatient (REF) | payer MEDICARE | LOC: SKLAB3 12:23 | PROVIDERS: ATTEND Internal Medicine | DX: Z20.822 Contact with and (suspected) exposure to COVID-19 (principal) ==

== ENCOUNTER 2022-02-19 09:25 | Observation (INO) | payer MEDICARE ==
[2022-02-19 09:57] LABS: BASO % 0.4 % (0.0-1.0); EOS # 0.1 10^3/uL (0.0-0.5); EOS % 1.1 % (0.0-3.0); HEMATOCRIT 33.4 % (36.0-47.0); HEMOGLOBIN 10.8 g/dl (12.0-15.5); LYMPH # 1.3 10^3/uL (1.5-5.0); LYMPH % 23.5 % (24.0-44.0); MEAN CORPUSCULAR HEMOGLOBIN 30.2 pg (27.0-33.0); MEAN CORPUSCULAR HGB CONC 32.3 g/dl (32.0-36.5); MEAN CORPUSCULAR VOLUME 93.3 fl (80.0-96.0); MONO # 0.7 10^3/uL (0.0-0.8); MONO % 12.1 % (2.0-8.0); NEUTROPHILS # 3.4 10^3/uL (1.5-8.5); NEUTROPHILS % 62.7 % (36.0-66.0); PLATELET COUNT, AUTOMATED 184 10^3/uL (150-450); RED BLOOD COUNT 3.58 10^6/uL (4.00-5.40); WHITE BLOOD COUNT 5.4 10^3/uL (4.0-10.0)
[2022-02-19 10:27] LABS: BLOOD UREA NITROGEN 10 MG/DL (7-18); CALCIUM LEVEL 8.6 MG/DL (8.8-10.2); CARBON DIOXIDE LEVEL 30 MEQ/L (21-32); CHLORIDE LEVEL 104 MEQ/L (98-107); CREATININE FOR GFR 0.63 MG/DL (0.55-1.30); GLOMERULAR FILTRATION RATE > 60.0 (>39); GLUCOSE, FASTING 109 MG/DL (70-100); POTASSIUM SERUM 4.1 MEQ/L (3.5-5.1); SODIUM LEVEL 138 MEQ/L (136-145)
[2022-02-19 10:37] LABS: INR 0.98; PROTHROMBIN TIME 13.4 SECONDS (12.7-14.5)
[2022-02-19 10:38] LABS: PARTIAL THROMBOPLASTIN TIME 30.1 SECONDS (25.9-37.0)
[2022-02-19] MEDS ORDERED: NS 500 ML IV ONE (11:10)
[2022-02-19 12:19] LABS: ALBUMIN 3.1 GM/DL (3.2-5.2); BILIRUBIN,DIRECT 0.1 MG/DL (0.0-0.2); BILIRUBIN,TOTAL 0.1 MG/DL (0.2-1.0); TOTAL PROTEIN 6.1 GM/DL (6.4-8.2)
[2022-02-19] MEDS ORDERED: QUET50TA4 PO (12:36)
[2022-02-19] MEDS ORDERED: ACET650T15 PO (12:36)
[2022-02-19] MEDS ORDERED: LEXA5TAB13 PO (12:36)
[2022-02-19] MEDS ORDERED: BUSP15TA47 PO (12:36)
[2022-02-19] MEDS ORDERED: ANOR1AER INH (12:36)
[2022-02-19] MEDS ORDERED: QUET1TAB17 PO (12:36)
[2022-02-19] MEDS ORDERED: SENN-23 PO (12:36)
[2022-02-19] MEDS ORDERED: ASPI81TA26 PO (12:36)
[2022-02-19] MEDS ORDERED: DRIS50003 PO (12:36)
[2022-02-19] MEDS ORDERED: HOME MED LIST COMPLETE! XX SCH (12:40)
[2022-02-19 12:51] LABS: RSV AMPLIFICATION NEGATIVE (NEGATIVE)
[2022-02-19] MEDS ORDERED: BISACODYL 10 MG SUPP PR PRN (14:05)
[2022-02-19] MEDS ORDERED: ACETAMINOPHEN TAB 650MG DOSE (2X325MG) PO PRN (14:05)
[2022-02-19] MEDS ORDERED: MOM 30ML SUSPENSION UDC PO PRN (14:05)
[2022-02-19 15:39] LABS: THYROID STIMULATING HORMONE 0.958 uIU/ML (0.358-3.740)
[2022-02-19 16:00] VITALS: BP 128/56
[2022-02-19] MEDS: ENOXAPARIN 40MG/0.4ML SYRINGE (J1650 PER 10MG) SC SCH (17:01)
[2022-02-19] MEDS: FORMOTEROL FUMARATE 20 MCG/2 ML INHALATION SOLUTION (PERFOROMIST) INH SCH (20:26)
[2022-02-19 21:00] VITALS: BP 120/60
[2022-02-19] MEDS: QUEtiapine FUMARATE 25 MG TAB PO SCH (21:53)
[2022-02-19] MEDS: busPIRone 5 MG TAB PO SCH (21:53)
[2022-02-19] MEDS: SENOKOT S TAB PO SCH (21:53)
[2022-02-20 05:28] VITALS: BP 104/50
[2022-02-20 06:33] LABS: HEMATOCRIT 34.3 % (36.0-47.0); MEAN CORPUSCULAR HEMOGLOBIN 30.4 pg (27.0-33.0); MEAN CORPUSCULAR HGB CONC 32.1 g/dl (32.0-36.5); MEAN CORPUSCULAR VOLUME 94.8 fl (80.0-96.0); PLATELET COUNT, AUTOMATED 193 10^3/uL (150-450); RED BLOOD COUNT 3.62 10^6/uL (4.00-5.40); WHITE BLOOD COUNT 3.6 10^3/uL (4.0-10.0)
[2022-02-20 07:00] LABS: BLOOD UREA NITROGEN 7 MG/DL (7-18); CALCIUM LEVEL 8.9 MG/DL (8.8-10.2); CARBON DIOXIDE LEVEL 29 MEQ/L (21-32); CHLORIDE LEVEL 105 MEQ/L (98-107); CREATININE FOR GFR 0.54 MG/DL (0.55-1.30); GLOMERULAR FILTRATION RATE > 60.0 (>39); GLUCOSE, FASTING 84 MG/DL (70-100); POTASSIUM SERUM 3.8 MEQ/L (3.5-5.1); SODIUM LEVEL 140 MEQ/L (136-145)
[2022-02-20] MEDS: FAMOTIDINE 20 MG TAB PO SCH (07:28)
[2022-02-20] MEDS: ASPIRIN 81MG ENTERIC TABLET PO SCH (07:28)
[2022-02-20] MEDS: busPIRone 5 MG TAB PO SCH ×2 (07:28→21:15)
[2022-02-20] MEDS: ENOXAPARIN 40MG/0.4ML SYRINGE (J1650 PER 10MG) SC SCH (07:28)
[2022-02-20] MEDS: QUEtiapine FUMARATE 50MG TAB PO SCH (07:28)
[2022-02-20] MEDS: SENOKOT S TAB PO SCH ×2 (07:28→21:15)
[2022-02-20] MEDS: TIOTROPIUM INHALER/CAPSULE (SPIRIVA) INH SCH (07:47)
[2022-02-20] MEDS: FORMOTEROL FUMARATE 20 MCG/2 ML INHALATION SOLUTION (PERFOROMIST) INH SCH ×2 (07:47→20:11)
[2022-02-20] MEDS: CYANOCOBALAMIN 500 MCG TAB PO SCH (07:55)
[2022-02-20 14:00] VITALS: BP 128/63
[2022-02-20 20:00] VITALS: BP 115/60
[2022-02-20] MEDS ORDERED: D5W/LR 1,000 ML IV SCH (21:15)
[2022-02-20] MEDS: QUEtiapine FUMARATE 25 MG TAB PO SCH (21:15)
[2022-02-20 22:00] VITALS: BP 115/60
[2022-02-21] VITALS: BP 122/62
[2022-02-21 04:00] VITALS: BP 117/60
[2022-02-21 06:00] VITALS: BP 109/52
[2022-02-21 06:52] LABS: HEMATOCRIT 35.2 % (36.0-47.0); HEMOGLOBIN 11.5 g/dl (12.0-15.5); MEAN CORPUSCULAR HEMOGLOBIN 30.9 pg (27.0-33.0); MEAN CORPUSCULAR HGB CONC 32.7 g/dl (32.0-36.5); MEAN CORPUSCULAR VOLUME 94.6 fl (80.0-96.0); PLATELET COUNT, AUTOMATED 217 10^3/uL (150-450); RED BLOOD COUNT 3.72 10^6/uL (4.00-5.40); WHITE BLOOD COUNT 3.5 10^3/uL (4.0-10.0)
[2022-02-21 07:23] LABS: BLOOD UREA NITROGEN 6 MG/DL (7-18); CALCIUM LEVEL 9.1 MG/DL (8.8-10.2); CARBON DIOXIDE LEVEL 32 MEQ/L (21-32); CHLORIDE LEVEL 103 MEQ/L (98-107); GLOMERULAR FILTRATION RATE > 60.0 (>39); GLUCOSE, FASTING 89 MG/DL (70-100); POTASSIUM SERUM 4.1 MEQ/L (3.5-5.1); SODIUM LEVEL 138 MEQ/L (136-145)
[2022-02-21] MEDS: TIOTROPIUM INHALER/CAPSULE (SPIRIVA) INH SCH (07:56)
[2022-02-21] MEDS: FORMOTEROL FUMARATE 20 MCG/2 ML INHALATION SOLUTION (PERFOROMIST) INH SCH (07:56)
[2022-02-21] MEDS: QUEtiapine FUMARATE 50MG TAB PO SCH (09:10)
[2022-02-21] MEDS: ENOXAPARIN 40MG/0.4ML SYRINGE (J1650 PER 10MG) SC SCH (09:10)
[2022-02-21] MEDS: ASPIRIN 81MG ENTERIC TABLET PO SCH (09:10)
[2022-02-21] MEDS: FAMOTIDINE 20 MG TAB PO SCH (09:11)
[2022-02-21] MEDS: CYANOCOBALAMIN 500 MCG TAB PO SCH (09:11)
[2022-02-21] MEDS: busPIRone 5 MG TAB PO SCH (09:11)
[2022-02-21] MEDS: SENOKOT S TAB PO SCH (09:11)
[2022-02-21] MEDS ORDERED: B-12100021 PO (13:12)
== END 2022-02-21 14:00 ==
LOC: EDBD 09:25 → M ED 09:25 → M ED INP 09:26 → ENRESERV 15:34 → M MSPAV 15:55
PROVIDERS: ADMIT Internal Medicine; ATTEND Internal Medicine
DX: R55 Syncope and collapse (principal); J44.9 Chronic obstructive pulmonary disease, unspecified; J96.11 Chronic respiratory failure with hypoxia; Z99.81 Dependence on supplemental oxygen; I25.10 Atherosclerotic heart disease of native coronary artery without angina pectoris; Z98.61 Coronary angioplasty status; Z95.1 Presence of aortocoronary bypass graft; F32.A Depression, unspecified; F03.90 Unspecified dementia, unspecified severity, without behavioral disturbance, psychotic disturbance, mood disturbance, and anxiety; U07.1 COVID-19; Z79.82 Long term (current) use of aspirin; Z79.899 Other long term (current) drug therapy; Z88.8 Allergy status to other drugs, medicaments and biological substances
CPT/HCPCS: 36415; 70450; 70544; 70551; 71045; 80048; 80076; 81001; 82306; 82607; 83605; 84443; 84484; 85025; 85027; 85610; 85730; 87040; 87631; 87635; 93005; 93041; 93306; 94640; 94760; 96372; 96374; 97161; 97165; 97530; 97535; 99285; G0378; J1650; J7606

== ENCOUNTER → 2022-02-25 | Outpatient (REF) | payer MEDICARE ==
[~2022-02-25] MED LIST changes: +ACET650T15 PO; +ANOR1AER INH; +B-12100021 PO; +BUSP15TA47 PO; +DRIS50003 PO; +LEXA5TAB13 PO; +QUET1TAB17 PO; +QUET50TA4 PO; +SENN-23 PO
[2022-02-25 09:33] LABS: HEMOGLOBIN 11.7 g/dl (12.0-15.5); MEAN CORPUSCULAR HEMOGLOBIN 30.7 pg (27.0-33.0); MEAN CORPUSCULAR HGB CONC 32.5 g/dl (32.0-36.5); MEAN CORPUSCULAR VOLUME 94.5 fl (80.0-96.0); PLATELET COUNT, AUTOMATED 270 10^3/uL (150-450); RED BLOOD COUNT 3.81 10^6/uL (4.00-5.40); WHITE BLOOD COUNT 4.2 10^3/uL (4.0-10.0)
[2022-02-25 10:07] LABS: ALBUMIN 3.6 GM/DL (3.2-5.2); ALT/SGPT 28 U/L (12-78); BILIRUBIN,TOTAL 0.4 MG/DL (0.2-1.0); BLOOD UREA NITROGEN 11 MG/DL (7-18); CALCIUM LEVEL 9.3 MG/DL (8.8-10.2); CARBON DIOXIDE LEVEL 27 MEQ/L (21-32); CHLORIDE LEVEL 106 MEQ/L (98-107); CREATININE FOR GFR 0.66 MG/DL (0.55-1.30); GLOMERULAR FILTRATION RATE > 60.0 (>39); GLUCOSE, FASTING 86 MG/DL (70-100); SODIUM LEVEL 139 MEQ/L (136-145); TOTAL PROTEIN 7.2 GM/DL (6.4-8.2)
== END ==
LOC: SKLAB2 14:51
PROVIDERS: ATTEND Nurse Practitioner
DX: U07.1 COVID-19 (principal); Z79.899 Other long term (current) drug therapy

== ENCOUNTER → 2022-02-28 | Outpatient (REF) | payer MEDICARE ==
[2022-02-28 13:44] LABS: HEMOGLOBIN 11.4 g/dl (12.0-15.5); MEAN CORPUSCULAR HEMOGLOBIN 30.3 pg (27.0-33.0); MEAN CORPUSCULAR HGB CONC 32.6 g/dl (32.0-36.5); MEAN CORPUSCULAR VOLUME 93.1 fl (80.0-96.0); PLATELET COUNT, AUTOMATED 348 10^3/uL (150-450); RED BLOOD COUNT 3.76 10^6/uL (4.00-5.40); WHITE BLOOD COUNT 6.8 10^3/uL (4.0-10.0)
[2022-02-28 15:41] LABS: ALBUMIN 4.2 GM/DL (3.2-5.2); ALT/SGPT 35 U/L (12-78); BILIRUBIN,TOTAL 0.4 MG/DL (0.2-1.0); BLOOD UREA NITROGEN 10 MG/DL (7-18); CALCIUM LEVEL 9.7 MG/DL (8.8-10.2); CARBON DIOXIDE LEVEL 29 MEQ/L (21-32); CHLORIDE LEVEL 103 MEQ/L (98-107); CREATININE FOR GFR 0.64 MG/DL (0.55-1.30); GLOMERULAR FILTRATION RATE > 60.0 (>39); GLUCOSE, FASTING 117 MG/DL (70-100); POTASSIUM SERUM 4.1 MEQ/L (3.5-5.1); SODIUM LEVEL 137 MEQ/L (136-145); TOTAL PROTEIN 8.2 GM/DL (6.4-8.2)
== END ==
LOC: SKLAB2 07:00
PROVIDERS: ATTEND Nurse Practitioner
DX: U07.1 COVID-19 (principal); Z79.899 Other long term (current) drug therapy

== ENCOUNTER → 2022-03-04 | Outpatient (REF) | payer MEDICARE ==
[2022-03-04 10:34] LABS: HEMATOCRIT 35.1 % (36.0-47.0); HEMOGLOBIN 11.4 g/dl (12.0-15.5); MEAN CORPUSCULAR HEMOGLOBIN 30.6 pg (27.0-33.0); MEAN CORPUSCULAR HGB CONC 32.5 g/dl (32.0-36.5); MEAN CORPUSCULAR VOLUME 94.4 fl (80.0-96.0); PLATELET COUNT, AUTOMATED 345 10^3/uL (150-450); RED BLOOD COUNT 3.72 10^6/uL (4.00-5.40); WHITE BLOOD COUNT 5.7 10^3/uL (4.0-10.0)
[2022-03-04 11:15] LABS: ALBUMIN 3.6 GM/DL (3.2-5.2); ALT/SGPT 34 U/L (12-78); BILIRUBIN,TOTAL 0.3 MG/DL (0.2-1.0); BLOOD UREA NITROGEN 6 MG/DL (7-18); CALCIUM LEVEL 9.1 MG/DL (8.8-10.2); CARBON DIOXIDE LEVEL 30 MEQ/L (21-32); CHLORIDE LEVEL 104 MEQ/L (98-107); CREATININE FOR GFR 0.59 MG/DL (0.55-1.30); GLOMERULAR FILTRATION RATE > 60.0 (>39); GLUCOSE, FASTING 90 MG/DL (70-100); POTASSIUM SERUM 3.9 MEQ/L (3.5-5.1); SODIUM LEVEL 138 MEQ/L (136-145)
== END ==
LOC: SKLAB2 07:00
PROVIDERS: ATTEND Nurse Practitioner
DX: U07.1 COVID-19 (principal); Z79.899 Other long term (current) drug therapy

== ENCOUNTER → 2022-06-04 | Outpatient (REF) | payer MEDICARE ==
[2022-06-04 10:11] LABS: HEMATOCRIT 39.8 % (36.0-47.0); HEMOGLOBIN 12.6 g/dl (12.0-15.5); MEAN CORPUSCULAR HEMOGLOBIN 30.1 pg (27.0-33.0); MEAN CORPUSCULAR HGB CONC 31.7 g/dl (32.0-36.5); MEAN CORPUSCULAR VOLUME 95.2 fl (80.0-96.0); PLATELET COUNT, AUTOMATED 254 10^3/uL (150-450); RED BLOOD COUNT 4.18 10^6/uL (4.00-5.40); WHITE BLOOD COUNT 5.2 10^3/uL (4.0-10.0)
== END ==
LOC: SKLAB3 09:24
PROVIDERS: ATTEND Nurse Practitioner
DX: D64.9 Anemia, unspecified (principal)

== ENCOUNTER 2022-06-28 16:48 | Inpatient (IN) | payer MEDICARE ==
[~2022-06-28] VITALS: Ht 160 cm; Wt 49.8 kg
[2022-06-28] MEDS ORDERED: MORPHINE 2 MG/ML 1ML VIAL IV ONE (17:15)
[2022-06-28] MEDS ORDERED: NS 1,000 ML IV SCH (17:15)
[2022-06-28] MEDS ORDERED: ONDANSETRON 4MG 2ML VIAL IV ONE (17:15)
[2022-06-28 17:41] LABS: BASO % 0.7 % (0.0-1.0); EOS # 0.2 10^3/uL (0.0-0.5); EOS % 4.2 % (0.0-3.0); HEMATOCRIT 37.1 % (36.0-47.0); HEMOGLOBIN 11.8 g/dl (12.0-15.5); LYMPH # 2.2 10^3/uL (1.5-5.0); LYMPH % 38.9 % (24.0-44.0); MEAN CORPUSCULAR HEMOGLOBIN 30.2 pg (27.0-33.0); MEAN CORPUSCULAR HGB CONC 31.8 g/dl (32.0-36.5); MEAN CORPUSCULAR VOLUME 94.9 fl (80.0-96.0); MONO # 0.5 10^3/uL (0.0-0.8); MONO % 9.6 % (2.0-8.0); NEUTROPHILS # 2.6 10^3/uL (1.5-8.5); NEUTROPHILS % 46.4 % (36.0-66.0); PLATELET COUNT, AUTOMATED 234 10^3/uL (150-450); RED BLOOD COUNT 3.91 10^6/uL (4.00-5.40); WHITE BLOOD COUNT 5.5 10^3/uL (4.0-10.0)
[2022-06-28 17:52] LABS: INR 0.92; PROTHROMBIN TIME 12.6 SECONDS (12.5-14.5)
[2022-06-28 17:53] LABS: PARTIAL THROMBOPLASTIN TIME 28.6 SECONDS (24.8-34.2)
[2022-06-28 17:59] LABS: VALPROIC ACID (DEPAKOTE) 27.7 UG/ML (50.0-100.0)
[2022-06-28 18:02] LABS: BLOOD UREA NITROGEN 11 MG/DL (9-23); CALCIUM LEVEL 9.4 MG/DL (8.3-10.6); CARBON DIOXIDE LEVEL 30 MMOL/L (20-31); CHLORIDE LEVEL 103 MMOL/L (98-107); GLOMERULAR FILTRATION RATE > 60.0 (>39); GLUCOSE, FASTING 99 MG/DL (74-106); POTASSIUM SERUM 4.2 MMOL/L (3.5-5.1); SODIUM LEVEL 143 MMOL/L (136-145)
[2022-06-28 18:33] LABS: RSV AMPLIFICATION NEGATIVE (NEGATIVE)
[2022-06-28] MEDS ORDERED: DOCU8.6T PO (19:01)
[2022-06-28] MEDS ORDERED: ACET650T3 PO (19:01)
[2022-06-28] MEDS ORDERED: BENG1CRE TOP (19:01)
[2022-06-28] MEDS ORDERED: DEPA1TAB PO (19:01)
[2022-06-28] MEDS ORDERED: PATIENT COMMENT (19:03)
[2022-06-28] MEDS ORDERED: HOME MED LIST COMPLETE! XX SCH (19:05)
[2022-06-28] MEDS: KETOROLAC 30 MG/ML 1ML VIAL IV SCH (19:05)
[2022-06-28] MEDS ORDERED: MOM 30ML SUSPENSION UDC PO PRN (19:20)
[2022-06-28] MEDS ORDERED: BISACODYL 10 MG SUPP PR PRN (19:20)
[2022-06-28] MEDS: SALMETEROL DISKUS 50MCG INHALER (SEREVENT) INH SCH (20:00)
[2022-06-28] MEDS: QUEtiapine FUMARATE 25 MG TAB PO SCH (20:27)
[2022-06-28] MEDS: busPIRone 5 MG TAB PO SCH (20:27)
[2022-06-28] MEDS: ACETAMINOPHEN 500 MG TAB PO SCH (20:28)
[2022-06-28 21:54] VITALS: BP 117/60
[2022-06-28] MEDS: DIVALPROEX 125 MG TAB PO SCH (22:56)
[2022-06-28] MEDS ORDERED: LR 1,000 ML IV SCH ×2 (23:59)
[2022-06-29] MEDS: KETOROLAC 30 MG/ML 1ML VIAL IV SCH ×4 (00:19→17:36)
[2022-06-29 05:54] VITALS: BP 114/76
[2022-06-29] MEDS: ACETAMINOPHEN 500 MG TAB PO SCH ×4 (06:00→20:16)
[2022-06-29] MEDS: TIOTROPIUM INHALER/CAPSULE (SPIRIVA) INH SCH (07:32)
[2022-06-29 07:52] VITALS: BP 109/69
[2022-06-29] MEDS: SALMETEROL DISKUS 50MCG INHALER (SEREVENT) INH SCH ×2 (08:00→19:24)
[2022-06-29 08:45] LABS: HEMATOCRIT 30.4 % (36.0-47.0); MEAN CORPUSCULAR HEMOGLOBIN 30.6 pg (27.0-33.0); MEAN CORPUSCULAR HGB CONC 31.6 g/dl (32.0-36.5); MEAN CORPUSCULAR VOLUME 96.8 fl (80.0-96.0); PLATELET COUNT, AUTOMATED 180 10^3/uL (150-450); RED BLOOD COUNT 3.14 10^6/uL (4.00-5.40); WHITE BLOOD COUNT 5.4 10^3/uL (4.0-10.0)
[2022-06-29] MEDS: FAMOTIDINE 20 MG TAB PO SCH (08:45)
[2022-06-29] MEDS: DIVALPROEX 125 MG TAB PO SCH ×2 (08:45→20:17)
[2022-06-29] MEDS: ASPIRIN 81MG ENTERIC TABLET PO SCH (08:45)
[2022-06-29] MEDS: busPIRone 5 MG TAB PO SCH ×2 (08:45→20:17)
[2022-06-29] MEDS: QUEtiapine FUMARATE 25 MG TAB PO SCH ×2 (08:45→20:17)
[2022-06-29 08:47] LABS: HEMOGLOBIN 9.6 g/dl (12.0-15.5)
[2022-06-29] MEDS ORDERED: ESCITALOPRAM OXALATE 5MG TABLET (LEXAPRO) PO SCH (09:00)
[2022-06-29 09:04] LABS: MAGNESIUM LEVEL 1.9 MG/DL (1.8-2.4)
[2022-06-29 09:20] LABS: BLOOD UREA NITROGEN 15 MG/DL (9-23); CALCIUM LEVEL 8.5 MG/DL (8.3-10.6); CARBON DIOXIDE LEVEL 29 MMOL/L (20-31); CHLORIDE LEVEL 105 MMOL/L (98-107); CREATININE FOR GFR 0.64 MG/DL (0.55-1.30); GLOMERULAR FILTRATION RATE > 60.0 (>39); GLUCOSE, FASTING 95 MG/DL (74-106); POTASSIUM SERUM 4.4 MMOL/L (3.5-5.1); SODIUM LEVEL 141 MMOL/L (136-145)
[2022-06-29] MEDS ORDERED: NS 1,000 ML IV SCH (09:35)
[2022-06-29 10:00] VITALS: O2SAT 100
[2022-06-29 14:00] VITALS: BP_SYST 109; BP_SYST 112; BP_DIAS 60; BP_DIAS 70
[2022-06-29] MEDS: MORPHINE 2 MG/ML 1ML VIAL IV PRN ×3 (14:46→21:11)
[2022-06-29] MEDS: ONDANSETRON 4MG 2ML VIAL IV PRN ×2 (14:48→17:59)
[2022-06-29 19:55] VITALS: BP 126/64
[2022-06-29] MEDS ORDERED: LR 1,000 ML IV ONE (23:59)
[2022-06-30] VITALS (9 sets, daily range): BP systolic 92–103; BP diastolic 47–61
[2022-06-30] MEDS: KETOROLAC 30 MG/ML 1ML VIAL IV SCH ×3 (01:16→12:00)
[2022-06-30] MEDS: ACETAMINOPHEN 500 MG TAB PO SCH ×3 (05:39→21:24)
[2022-06-30 05:40] LABS: BASO % 0.2 % (0.0-1.0); EOS # 0.1 10^3/uL (0.0-0.5); EOS % 0.7 % (0.0-3.0); HEMATOCRIT 29.3 % (36.0-47.0); HEMOGLOBIN 9.3 g/dl (12.0-15.5); LYMPH # 0.9 10^3/uL (1.5-5.0); LYMPH % 8.6 % (24.0-44.0); MEAN CORPUSCULAR HEMOGLOBIN 30.4 pg (27.0-33.0); MEAN CORPUSCULAR HGB CONC 31.7 g/dl (32.0-36.5); MEAN CORPUSCULAR VOLUME 95.8 fl (80.0-96.0); MONO # 1.1 10^3/uL (0.0-0.8); MONO % 10.6 % (2.0-8.0); NEUTROPHILS # 8.1 10^3/uL (1.5-8.5); NEUTROPHILS % 79.4 % (36.0-66.0); PLATELET COUNT, AUTOMATED 160 10^3/uL (150-450); RED BLOOD COUNT 3.06 10^6/uL (4.00-5.40); WHITE BLOOD COUNT 10.2 10^3/uL (4.0-10.0)
[2022-06-30 06:05] LABS: BLOOD UREA NITROGEN 13 MG/DL (9-23); CALCIUM LEVEL 8.2 MG/DL (8.3-10.6); CARBON DIOXIDE LEVEL 30 MMOL/L (20-31); CHLORIDE LEVEL 106 MMOL/L (98-107); CREATININE FOR GFR 0.62 MG/DL (0.55-1.30); GLOMERULAR FILTRATION RATE > 60.0 (>39); GLUCOSE, FASTING 101 MG/DL (74-106); POTASSIUM SERUM 4.3 MMOL/L (3.5-5.1); SODIUM LEVEL 141 MMOL/L (136-145)
[2022-06-30] MEDS: SALMETEROL DISKUS 50MCG INHALER (SEREVENT) INH SCH ×2 (07:49→20:00)
[2022-06-30] MEDS: TIOTROPIUM INHALER/CAPSULE (SPIRIVA) INH SCH (07:49)
[2022-06-30] MEDS: LR 1,000 ML IV SCH (08:37)
[2022-06-30] MEDS: DIVALPROEX 125 MG TAB PO SCH ×2 (09:00→19:54)
[2022-06-30] MEDS: busPIRone 5 MG TAB PO SCH ×2 (09:00→19:45)
[2022-06-30] MEDS: ASPIRIN 81MG ENTERIC TABLET PO SCH (09:00)
[2022-06-30] MEDS: QUEtiapine FUMARATE 25 MG TAB PO SCH ×2 (09:00→19:45)
[2022-06-30] MEDS ORDERED: fentaNYL 100 MCG/2 ML INJECTION As Ordered ONE (11:39)
[2022-06-30] MEDS ORDERED: propofoL 200 MG/20 ML VIAL As Ordered ONE ×2 (11:39→12:27)
[2022-06-30] MEDS ORDERED: MIDAZOLAM INJ 2MG/2ML VIAL (J2250 PER 1MG) As Ordered ONE (11:40)
[2022-06-30] MEDS ORDERED: ePHEDrine SULFATE 25 MG/5 ML(5MG/ML) SYRINGE As Ordered ONE (11:59)
[2022-06-30] MEDS ORDERED: PHENYLephrine 500MCG 5ML (100MCG/ML) SYRINGE As Ordered ONE ×2 (11:59→12:21)
[2022-06-30] MEDS ORDERED: VASOPRESSIN INJ 20UNITS/ML 1ML VIAL As Ordered ONE (12:17)
[2022-06-30] MEDS ORDERED: ceFAZolin 2 GM/D5W 50 ML IV BAG As Ordered ONE (12:21)
[2022-06-30] MEDS ORDERED: TRANEXAMIC ACID 100 MG/ML 10ML VIAL As Ordered ONE (12:21)
[2022-06-30] MEDS ORDERED: ONDANSETRON 4MG 2ML VIAL As Ordered ONE (12:44)
[2022-06-30] MEDS ORDERED: ACETAMINOPHEN 1000MG 100ML IV BAG As Ordered ONE (13:06)
[2022-06-30] MEDS ORDERED: ONDANSETRON 4MG 2ML VIAL IV PRN (13:20)
[2022-06-30] MEDS ORDERED: oxyCODONE 5MG TAB PO PRN (13:20)
[2022-06-30] MEDS ORDERED: fentaNYL 100 MCG/2 ML INJECTION IV PRN (13:20)
[2022-06-30] MEDS ORDERED: LR 1,000 ML IV SCH (13:20)
[2022-06-30] MEDS ORDERED: MORPHINE 2 MG/ML 1ML VIAL IV PRN (16:40)
[2022-06-30] MEDS: FAMOTIDINE 20 MG TAB PO SCH (17:46)
[2022-06-30] MEDS: ceFAZolin SOD 2 GM in IV 1 EA IV SCH (20:09)
[2022-06-30] MEDS: KETOROLAC 30 MG/ML 1ML VIAL IV PRN (20:09)
[2022-07-01] MEDS: HEPARIN SOD (PORCINE) 5000UNITS/ML 1ML VIAL/SYRINGE SQ SCH ×2 (01:04→05:43)
[2022-07-01 02:00] VITALS: BP 91/54
[2022-07-01] MEDS: ceFAZolin SOD 2 GM in IV 1 EA IV SCH ×2 (03:53→11:50)
[2022-07-01] MEDS: LR 1,000 ML IV SCH ×2 (03:53→04:30)
[2022-07-01 04:00] VITALS: BP 94/62
[2022-07-01] MEDS: ACETAMINOPHEN 500 MG TAB PO SCH (05:43)
[2022-07-01 06:00] VITALS: BP 100/51
[2022-07-01] MEDS: TIOTROPIUM INHALER/CAPSULE (SPIRIVA) INH SCH (07:33)
[2022-07-01] MEDS: SALMETEROL DISKUS 50MCG INHALER (SEREVENT) INH SCH (07:33)
[2022-07-01] MEDS: KETOROLAC 30 MG/ML 1ML VIAL IV PRN (08:03)
[2022-07-01] MEDS: DIVALPROEX 125 MG TAB PO SCH (08:07)
[2022-07-01] MEDS: QUEtiapine FUMARATE 25 MG TAB PO SCH (08:07)
[2022-07-01] MEDS: ASPIRIN 81MG ENTERIC TABLET PO SCH (08:07)
[2022-07-01] MEDS: busPIRone 5 MG TAB PO SCH (08:07)
[2022-07-01] MEDS: FAMOTIDINE 20 MG TAB PO SCH (08:07)
[2022-07-01 08:10] LABS: HEMATOCRIT 26.2 % (36.0-47.0); HEMOGLOBIN 8.2 g/dl (12.0-15.5); MEAN CORPUSCULAR HEMOGLOBIN 30.3 pg (27.0-33.0); MEAN CORPUSCULAR HGB CONC 31.3 g/dl (32.0-36.5); MEAN CORPUSCULAR VOLUME 96.7 fl (80.0-96.0); PLATELET COUNT, AUTOMATED 144 10^3/uL (150-450); RED BLOOD COUNT 2.71 10^6/uL (4.00-5.40); WHITE BLOOD COUNT 6.9 10^3/uL (4.0-10.0)
[2022-07-01 08:39] LABS: BLOOD UREA NITROGEN 16 MG/DL (9-23); CALCIUM LEVEL 7.9 MG/DL (8.3-10.6); CARBON DIOXIDE LEVEL 28 MMOL/L (20-31); CHLORIDE LEVEL 105 MMOL/L (98-107); CREATININE FOR GFR 0.59 MG/DL (0.55-1.30); GLOMERULAR FILTRATION RATE > 60.0 (>39); GLUCOSE, FASTING 85 MG/DL (74-106); POTASSIUM SERUM 4.1 MMOL/L (3.5-5.1); SODIUM LEVEL 140 MMOL/L (136-145)
[2022-07-01 09:33] LABS: EOSINOPHILS 2 % (0-3); LYMPHOCYTES 19 % (16-44); MONOCYTES 4 % (0-5); NEUTROPHILS 58 % (28-66)
[2022-07-01 09:36] LABS: HYPOCHROMASIA 2+
[2022-07-01 09:37] LABS: PLATELET ESTIMATE DECREASED (NORMAL)
[2022-07-01 10:00] VITALS: BP 103/54
[2022-07-01] MEDS ORDERED: OXYC1TAB23 PO (12:28)
[2022-07-01] MEDS ORDERED: CEFD300CAP PO (12:28)
[2022-07-01] MEDS ORDERED: ENOX40IN3 SC (12:28)
[2022-07-01] MEDS ORDERED: MIRA3350 PO (12:28)
[2022-07-01] MEDS ORDERED: CEFDINIR 300 MG CAP (OMNICEF) PO SCH (21:00)
== END 2022-07-01 13:20 | DRG 481 ==
LOC: EDBD 16:48 → M ED 16:48 → M ED INP 18:31 → M MS5PR 21:50
PROVIDERS: ADMIT Internal Medicine; ATTEND Internal Medicine
PROC: 0QS634Z Reposition Right Upper Femur with Internal Fixation Device, Percutaneous Approach (ICD-10-PCS; principal; 2022-06-30 08:00)
DX: S72.141A Displaced intertrochanteric fracture of right femur, initial encounter for closed fracture (principal); N39.0 Urinary tract infection, site not specified; J44.9 Chronic obstructive pulmonary disease, unspecified; K21.9 Gastro-esophageal reflux disease without esophagitis; F03.90 Unspecified dementia, unspecified severity, without behavioral disturbance, psychotic disturbance, mood disturbance, and anxiety; I25.10 Atherosclerotic heart disease of native coronary artery without angina pectoris; F41.9 Anxiety disorder, unspecified; F32.A Depression, unspecified; Z79.899 Other long term (current) drug therapy; Z79.82 Long term (current) use of aspirin; Z88.8 Allergy status to other drugs, medicaments and biological substances; Z95.1 Presence of aortocoronary bypass graft; Z99.81 Dependence on supplemental oxygen; W18.30XA Fall on same level, unspecified, initial encounter; Z66 Do not resuscitate; Y92.128 Other place in nursing home as the place of occurrence of the external cause

== ENCOUNTER → 2022-07-04 | Outpatient (REF) | payer MEDICARE ==
[~2022-07-04] MED LIST changes: +ACET650T3 PO; +BENG1CRE TOP; +CEFD300CAP PO; +DEPA1TAB PO; +DOCU8.6T PO; +ENOX40IN3 SC; +MIRA3350 PO; +OXYC1TAB23 PO; +PATIENT COMMENT
[2022-07-04 09:33] LABS: HEMATOCRIT 27.7 % (36.0-47.0); HEMOGLOBIN 8.8 g/dl (12.0-15.5); MEAN CORPUSCULAR HEMOGLOBIN 30.2 pg (27.0-33.0); MEAN CORPUSCULAR HGB CONC 31.8 g/dl (32.0-36.5); MEAN CORPUSCULAR VOLUME 95.2 fl (80.0-96.0); PLATELET COUNT, AUTOMATED 221 10^3/uL (150-450); RED BLOOD COUNT 2.91 10^6/uL (4.00-5.40); WHITE BLOOD COUNT 5.9 10^3/uL (4.0-10.0)
== END ==
LOC: SKLAB3 14:05
PROVIDERS: ATTEND Nurse Practitioner
DX: D62 Acute posthemorrhagic anemia (principal)

== ENCOUNTER → 2022-07-16 | Outpatient (CLI) | payer MEDICARE | LOC: M SOG 09:24 | PROVIDERS: ATTEND Orthopaedic Surgery | DX: Z47.89 Encounter for other orthopedic aftercare (principal) ==

== ENCOUNTER → 2022-08-01 | Outpatient (CLI) | payer MEDICARE | LOC: M SOG 08:07 | PROVIDERS: ATTEND Student in an Organized Health Care Education/Training Program | DX: S72.141D Displaced intertrochanteric fracture of right femur, subsequent encounter for closed fracture with routine healing (principal); Z47.89 Encounter for other orthopedic aftercare ==

== ENCOUNTER → 2022-09-10 | Outpatient (REF) | payer MEDICARE ==
[2022-09-10 08:29] LABS: HEMATOCRIT 39.9 % (36.0-47.0); HEMOGLOBIN 12.4 g/dl (12.0-15.5); MEAN CORPUSCULAR HGB CONC 31.1 g/dl (32.0-36.5); MEAN CORPUSCULAR VOLUME 96.4 fl (80.0-96.0); PLATELET COUNT, AUTOMATED 297 10^3/uL (150-450); RED BLOOD COUNT 4.14 10^6/uL (4.00-5.40); WHITE BLOOD COUNT 5.8 10^3/uL (4.0-10.0)
[2022-09-10 09:26] LABS: ALKALINE PHOSPHATASE 93 U/L (46-116); ALT/SGPT < 9 U/L (7.0-40); AST/SGOT 22 U/L (<34); BILIRUBIN,TOTAL 0.3 MG/DL (0.3-1.2); BLOOD UREA NITROGEN 13 MG/DL (9-23); CALCIUM LEVEL 9.5 MG/DL (8.3-10.6); CARBON DIOXIDE LEVEL 31 MMOL/L (20-31); CHLORIDE LEVEL 101 MMOL/L (98-107); CREATININE FOR GFR 0.58 MG/DL (0.55-1.30); GLOMERULAR FILTRATION RATE > 60.0 (>39); GLUCOSE, FASTING 86 MG/DL (74-106); SODIUM LEVEL 139 MMOL/L (136-145); TOTAL PROTEIN 6.5 G/DL (5.7-8.2)
== END ==
LOC: SKLAB3 10:06
PROVIDERS: ATTEND Nurse Practitioner
DX: F03.90 Unspecified dementia, unspecified severity, without behavioral disturbance, psychotic disturbance, mood disturbance, and anxiety (principal); D64.9 Anemia, unspecified; I25.10 Atherosclerotic heart disease of native coronary artery without angina pectoris

== ENCOUNTER → 2022-10-31 | Outpatient (CLI) | payer MEDICARE | LOC: M SOG 08:53 | PROVIDERS: ATTEND Student in an Organized Health Care Education/Training Program | DX: S72.141D Displaced intertrochanteric fracture of right femur, subsequent encounter for closed fracture with routine healing (principal); Y93.9 Activity, unspecified; Y92.9 Unspecified place or not applicable ==

== ENCOUNTER → 2022-12-03 | Outpatient (REF) | payer MEDICARE ==
[2022-12-03 07:56] LABS: HEMOGLOBIN 10.7 g/dl (12.0-15.5); MEAN CORPUSCULAR HEMOGLOBIN 30.7 pg (27.0-33.0); MEAN CORPUSCULAR HGB CONC 31.5 g/dl (32.0-36.5); MEAN CORPUSCULAR VOLUME 97.7 fl (80.0-96.0); PLATELET COUNT, AUTOMATED 273 10^3/uL (150-450); RED BLOOD COUNT 3.48 10^6/uL (4.00-5.40); WHITE BLOOD COUNT 5.6 10^3/uL (4.0-10.0)
== END ==
LOC: SKLAB3 09:40
PROVIDERS: ATTEND Nurse Practitioner
DX: D64.9 Anemia, unspecified (principal)

== ENCOUNTER → 2023-02-05 | Outpatient (CLI) | payer MEDICARE | LOC: M RAD 17:51 | PROVIDERS: ATTEND Internal Medicine | DX: Z53.9 Procedure and treatment not carried out, unspecified reason (principal) ==

== ENCOUNTER → 2023-03-04 | Outpatient (REF) | payer MEDICARE ==
[2023-03-04 08:41] LABS: HEMOGLOBIN 10.3 g/dl (12.0-15.5); MEAN CORPUSCULAR HEMOGLOBIN 31.2 pg (27.0-33.0); MEAN CORPUSCULAR HGB CONC 31.2 g/dl (32.0-36.5); PLATELET COUNT, AUTOMATED 215 10^3/uL (150-450); WHITE BLOOD COUNT 3.8 10^3/uL (4.0-10.0)
[2023-03-04 09:09] LABS: ALBUMIN 2.9 G/DL (3.2-5.2); ALKALINE PHOSPHATASE 142 U/L (46-116); ALT/SGPT < 9 U/L (7.0-40); AST/SGOT 10 U/L (<34); BILIRUBIN,TOTAL 0.3 MG/DL (0.3-1.2); BLOOD UREA NITROGEN 13 MG/DL (9-23); CALCIUM LEVEL 9.1 MG/DL (8.3-10.6); CARBON DIOXIDE LEVEL 36 MMOL/L (20-31); CHLORIDE LEVEL 104 MMOL/L (98-107); CREATININE FOR GFR 0.57 MG/DL (0.55-1.30); GLOMERULAR FILTRATION RATE > 60.0 (>39); GLUCOSE, FASTING 85 MG/DL (74-106); POTASSIUM SERUM 4.4 MMOL/L (3.5-5.1); SODIUM LEVEL 143 MMOL/L (136-145); TOTAL PROTEIN 5.9 G/DL (5.7-8.2)
== END ==
LOC: SKLAB3 14:42
PROVIDERS: ATTEND Nurse Practitioner
DX: D64.9 Anemia, unspecified (principal); N18.9 Chronic kidney disease, unspecified

== ENCOUNTER → 2023-05-22 | Outpatient (REF) | payer MEDICARE ==
[2023-05-22 15:10] LABS: HEMATOCRIT 34.4 % (36.0-47.0); HEMOGLOBIN 10.9 g/dl (12.0-15.5); MEAN CORPUSCULAR HEMOGLOBIN 31.4 pg (27.0-33.0); MEAN CORPUSCULAR HGB CONC 31.7 g/dl (32.0-36.5); MEAN CORPUSCULAR VOLUME 99.1 fl (80.0-96.0); PLATELET COUNT, AUTOMATED 237 10^3/uL (150-450); RED BLOOD COUNT 3.47 10^6/uL (4.00-5.40); WHITE BLOOD COUNT 16.9 10^3/uL (4.0-10.0)
[2023-05-22 15:36] LABS: BLOOD UREA NITROGEN 17 MG/DL (9-23); CALCIUM LEVEL 9.5 MG/DL (8.3-10.6); CARBON DIOXIDE LEVEL 31 MMOL/L (20-31); CHLORIDE LEVEL 101 MMOL/L (98-107); CREATININE FOR GFR 0.58 MG/DL (0.55-1.30); GLOMERULAR FILTRATION RATE > 60.0 (>39); GLUCOSE, FASTING 208 MG/DL (74-106); POTASSIUM SERUM 5.3 MMOL/L (3.5-5.1); SODIUM LEVEL 140 MMOL/L (136-145)
== END ==
LOC: SKLAB3 14:23
PROVIDERS: ATTEND Internal Medicine
DX: R41.82 Altered mental status, unspecified (principal)

== ENCOUNTER → 2023-05-22 | Outpatient (REF) | payer MEDICARE ==
[2023-05-22 20:15] LABS: APPEARANCE, URINE HAZY (CLEAR); BACTERIA, URINE AUTO NEGATIVE (NEGATIVE); BILIRUBIN, URINE AUTO NEGATIVE (NEGATIVE); BLOOD, URINE BLOOD 2+ (NEGATIVE); COLOR, URINE YELLOW (YELLOW); GLUCOSE, URINE (UA) AUTO NEGATIVE (NEGATIVE); KETONE, URINE AUTO NEGATIVE (NEGATIVE); LEUKOCYTE ESTERASE, URINE AUTO 3+ (NEGATIVE); NITRITE, URINE AUTO NEGATIVE (NEGATIVE); PROTEIN, URINE AUTO NEGATIVE (NEGATIVE); RBC, URINE AUTO 5 /HPF (0-3); SPECIFIC GRAVITY URINE AUTO 1.006 (1.002-1.035); SQUAMOUS EPITHELIAL CELL UR AU 2 /HPF (0-6); UROBILINOGEN, URINE AUTO 0.2 mg/dL (0.0-2.0); WBC, URINE AUTO 42 /HPF (0-3)
== END ==
LOC: SKLAB3 16:07
PROVIDERS: ATTEND Internal Medicine
DX: R06.2 Wheezing (principal); R41.82 Altered mental status, unspecified; D72.829 Elevated white blood cell count, unspecified

== ENCOUNTER → 2023-05-22 | Outpatient (REF) | payer MEDICARE | LOC: SKLAB3 20:31 | PROVIDERS: ATTEND Internal Medicine | DX: R41.82 Altered mental status, unspecified (principal); D72.829 Elevated white blood cell count, unspecified ==

== ENCOUNTER → 2023-05-24 | Outpatient (REF) | payer MEDICARE ==
[2023-05-24 06:55] LABS: HEMATOCRIT 29.3 % (36.0-47.0); HEMOGLOBIN 9.4 g/dl (12.0-15.5); MEAN CORPUSCULAR HEMOGLOBIN 32.1 pg (27.0-33.0); MEAN CORPUSCULAR HGB CONC 32.1 g/dl (32.0-36.5); PLATELET COUNT, AUTOMATED 216 10^3/uL (150-450); RED BLOOD COUNT 2.93 10^6/uL (4.00-5.40); WHITE BLOOD COUNT 8.4 10^3/uL (4.0-10.0)
[2023-05-24 07:19] LABS: BLOOD UREA NITROGEN 19 MG/DL (9-23); CALCIUM LEVEL 8.9 MG/DL (8.3-10.6); CARBON DIOXIDE LEVEL 34 MMOL/L (20-31); CHLORIDE LEVEL 104 MMOL/L (98-107); CREATININE FOR GFR 0.56 MG/DL (0.55-1.30); GLOMERULAR FILTRATION RATE > 60.0 (>39); GLUCOSE, FASTING 80 MG/DL (74-106); POTASSIUM SERUM 4.3 MMOL/L (3.5-5.1); SODIUM LEVEL 141 MMOL/L (136-145)
== END ==
LOC: SKLAB3 07:00
PROVIDERS: ATTEND Nurse Practitioner
DX: D72.829 Elevated white blood cell count, unspecified (principal)

== ENCOUNTER → 2023-06-10 | Outpatient (REF) | payer MEDICARE ==
[2023-06-10 08:00] LABS: HEMATOCRIT 32.3 % (36.0-47.0); HEMOGLOBIN 10.4 g/dl (12.0-15.5); MEAN CORPUSCULAR HEMOGLOBIN 31.6 pg (27.0-33.0); MEAN CORPUSCULAR HGB CONC 32.2 g/dl (32.0-36.5); MEAN CORPUSCULAR VOLUME 98.2 fl (80.0-96.0); PLATELET COUNT, AUTOMATED 228 10^3/uL (150-450); RED BLOOD COUNT 3.29 10^6/uL (4.00-5.40); WHITE BLOOD COUNT 4.2 10^3/uL (4.0-10.0)
== END ==
LOC: SKLAB3 07:00
PROVIDERS: ATTEND Internal Medicine
DX: D64.9 Anemia, unspecified (principal)

== ENCOUNTER → 2023-06-17 | Outpatient (CLI) | payer MEDICARE | LOC: M SOG 07:55 | PROVIDERS: ATTEND Student in an Organized Health Care Education/Training Program | DX: S72.141D Displaced intertrochanteric fracture of right femur, subsequent encounter for closed fracture with routine healing (principal); Z53.9 Procedure and treatment not carried out, unspecified reason ==

== ENCOUNTER → 2023-07-01 | Outpatient (CLI) | payer MEDICARE | LOC: M SOG 07:52 | PROVIDERS: ATTEND Student in an Organized Health Care Education/Training Program | DX: S72.141D Displaced intertrochanteric fracture of right femur, subsequent encounter for closed fracture with routine healing (principal) ==

== ENCOUNTER → 2023-08-13 | Outpatient (REF) | payer MEDICARE | LOC: SKLAB3 12:02 | PROVIDERS: ATTEND Internal Medicine | DX: R06.2 Wheezing (principal) ==

== ENCOUNTER → 2023-08-15 | Outpatient (REF) | payer MEDICARE | LOC: SKLAB3 20:35 | PROVIDERS: ATTEND Internal Medicine | DX: R06.2 Wheezing (principal); R06.02 Shortness of breath; I95.9 Hypotension, unspecified ==

== ENCOUNTER → 2023-09-09 | Outpatient (REF) | payer MEDICARE ==
[2023-09-09 13:13] LABS: HEMATOCRIT 37.1 % (36.0-47.0); HEMOGLOBIN 11.7 g/dl (12.0-15.5); MEAN CORPUSCULAR HEMOGLOBIN 31.5 pg (27.0-33.0); MEAN CORPUSCULAR HGB CONC 31.5 g/dl (32.0-36.5); MEAN CORPUSCULAR VOLUME 99.7 fl (80.0-96.0); PLATELET COUNT, AUTOMATED 260 10^3/uL (150-450); RED BLOOD COUNT 3.72 10^6/uL (4.00-5.40); WHITE BLOOD COUNT 6.8 10^3/uL (4.0-10.0)
[2023-09-09 13:49] LABS: ALBUMIN 2.6 G/DL (3.2-5.2); ALKALINE PHOSPHATASE 108 U/L (46-116); ALT/SGPT < 9 U/L (7.0-40); AST/SGOT 21 U/L (<34); BILIRUBIN,TOTAL 0.2 MG/DL (0.3-1.2); BLOOD UREA NITROGEN 25 MG/DL (9-23); CALCIUM LEVEL 8.9 MG/DL (8.3-10.6); CARBON DIOXIDE LEVEL 31 MMOL/L (20-31); CHLORIDE LEVEL 105 MMOL/L (98-107); CREATININE FOR GFR 0.62 MG/DL (0.55-1.30); GLOMERULAR FILTRATION RATE > 60.0 (>39); GLUCOSE, FASTING 89 MG/DL (74-106); POTASSIUM SERUM 4.4 MMOL/L (3.5-5.1); SODIUM LEVEL 140 MMOL/L (136-145); TOTAL PROTEIN 6.6 G/DL (5.7-8.2)
== END ==
LOC: SKLAB3 11:05
PROVIDERS: ATTEND Internal Medicine
DX: D64.9 Anemia, unspecified (principal); I25.10 Atherosclerotic heart disease of native coronary artery without angina pectoris

== ENCOUNTER → 2023-11-12 | Outpatient (REF) | payer MEDICARE ==
[2023-11-12 10:36] LABS: CHOLESTEROL RISK RATIO 4.66 (<5); HDL CHOLESTEROL 40.9 MG/DL (>40); LDL CHOLESTEROL 116.7 MG/DL (<100); NON-HDL-C 150.1 MG/DL
[2023-11-12 10:53] LABS: TOTAL 25(OH) VITAMIN D 39.4 NG/ML (20.0-100.0)
== END ==
LOC: SKLAB3 07:00
PROVIDERS: ATTEND Nurse Practitioner
DX: E55.9 Vitamin D deficiency, unspecified (principal); E78.5 Hyperlipidemia, unspecified

== ENCOUNTER → 2023-11-13 | Outpatient (REF) | payer MEDICARE ==
[2023-11-13 14:45] LABS: HEMATOCRIT 33.3 % (36.0-47.0); HEMOGLOBIN 10.6 g/dl (12.0-15.5); MEAN CORPUSCULAR HEMOGLOBIN 31.6 pg (27.0-33.0); MEAN CORPUSCULAR HGB CONC 31.8 g/dl (32.0-36.5); MEAN CORPUSCULAR VOLUME 99.4 fl (80.0-96.0); RED BLOOD COUNT 3.35 10^6/uL (4.00-5.40); WHITE BLOOD COUNT 5.8 10^3/uL (4.0-10.0)
[2023-11-13 15:03] LABS: BLOOD UREA NITROGEN 20 MG/DL (9-23); CALCIUM LEVEL 9.6 MG/DL (8.3-10.6); CARBON DIOXIDE LEVEL 28 MMOL/L (20-31); CHLORIDE LEVEL 102 MMOL/L (98-107); GLUCOSE, FASTING 115 MG/DL (74-106); POTASSIUM SERUM 4.5 MMOL/L (3.5-5.1); SODIUM LEVEL 138 MMOL/L (136-145)
[2023-11-13 15:18] LABS: CREATININE FOR GFR 0.52 MG/DL (0.55-1.30); GLOMERULAR FILTRATION RATE > 60.0 (>39)
== END ==
LOC: SKLAB3 13:49
PROVIDERS: ATTEND Nurse Practitioner Adult Health
DX: R09.02 Hypoxemia (principal)

== ENCOUNTER → 2023-11-13 | Outpatient (REF) | payer MEDICARE | LOC: SKLAB3 13:53 | PROVIDERS: ATTEND Internal Medicine | DX: J43.9 Emphysema, unspecified (principal) ==

== ENCOUNTER → 2023-11-14 | Outpatient (REF) | payer MEDICARE | LOC: SKLAB3 10:33 | PROVIDERS: ATTEND Internal Medicine | DX: Z53.8 Procedure and treatment not carried out for other reasons (principal) ==

== ENCOUNTER → 2023-11-14 | Outpatient (REF) | payer MEDICARE | LOC: SKLAB3 12:55 | PROVIDERS: ATTEND Internal Medicine | DX: R06.02 Shortness of breath (principal) ==

== ENCOUNTER → 2023-11-14 | Outpatient (CLI) | payer MEDICARE | LOC: M RAD 11:02 | PROVIDERS: ATTEND Internal Medicine | DX: R06.02 Shortness of breath (principal) ==

== ENCOUNTER → 2023-11-20 | Outpatient (REF) | payer MEDICARE ==
[2023-11-20 09:24] LABS: BASO # 0.1 10^3/uL (0.0-0.2); BASO % 0.8 % (0.0-1.0); EOS # 0.3 10^3/uL (0.0-0.5); EOS % 3.9 % (0.0-3.0); HEMATOCRIT 34.4 % (36.0-47.0); HEMOGLOBIN 10.8 g/dl (12.0-15.5); LYMPH # 2.1 10^3/uL (1.5-5.0); LYMPH % 32.1 % (24.0-44.0); MEAN CORPUSCULAR HEMOGLOBIN 31.3 pg (27.0-33.0); MEAN CORPUSCULAR HGB CONC 31.4 g/dl (32.0-36.5); MEAN CORPUSCULAR VOLUME 99.7 fl (80.0-96.0); MONO # 0.5 10^3/uL (0.0-0.8); MONO % 7.2 % (2.0-8.0); NEUTROPHILS # 3.7 10^3/uL (1.5-8.5); NEUTROPHILS % 55.8 % (36.0-66.0); PLATELET COUNT, AUTOMATED 216 10^3/uL (150-450); RED BLOOD COUNT 3.45 10^6/uL (4.00-5.40); WHITE BLOOD COUNT 6.6 10^3/uL (4.0-10.0)
[2023-11-20 09:44] LABS: ALBUMIN 3.5 G/DL (3.2-5.2); ALKALINE PHOSPHATASE 64 U/L (46-116); ALT/SGPT 22 U/L (7.0-40); AST/SGOT 23 U/L (<34); BILIRUBIN,TOTAL 0.4 MG/DL (0.3-1.2); BLOOD UREA NITROGEN 18 MG/DL (9-23); CALCIUM LEVEL 9.9 MG/DL (8.3-10.6); CARBON DIOXIDE LEVEL 34 MMOL/L (20-31); CHLORIDE LEVEL 102 MMOL/L (98-107); CREATININE FOR GFR 0.49 MG/DL (0.55-1.30); GLOMERULAR FILTRATION RATE > 60.0 (>39); GLUCOSE, FASTING 103 MG/DL (74-106); POTASSIUM SERUM 4.1 MMOL/L (3.5-5.1); SODIUM LEVEL 140 MMOL/L (136-145)
== END ==
LOC: SKLAB3 08:12
PROVIDERS: ATTEND Internal Medicine
DX: R09.02 Hypoxemia (principal)

== ENCOUNTER 2024-01-01 23:23 | Inpatient (IN) | payer MEDICARE, MEDICAID ==
[~2024-01-01 23:23] MED LIST changes: -ACET1TAB55 PO; -BUSP1TAB PO; -FLEEENE12 PR; -POLY17PO18 PO; -SODIGEL; -VITA1CAP25 PO
[2024-01-02] VITALS (9 sets, daily range): BP systolic 90–142; BP diastolic 50–82; TEMP 96.9–97.8; O2SAT 97–100
[2024-01-02 00:12] LABS: BASO # 0.1 10^3/uL (0.0-0.2); BASO % 0.6 % (0.0-1.0); EOS # 0.1 10^3/uL (0.0-0.5); EOS % 1.1 % (0.0-3.0); HEMATOCRIT 34.1 % (36.0-47.0); HEMOGLOBIN 10.9 g/dl (12.0-15.5); INR 0.97; LYMPH # 1.4 10^3/uL (1.5-5.0); LYMPH % 15.9 % (24.0-44.0); MEAN CORPUSCULAR HEMOGLOBIN 31.1 pg (27.0-33.0); MEAN CORPUSCULAR VOLUME 97.4 fl (80.0-96.0); MONO # 0.4 10^3/uL (0.0-0.8); MONO % 4.7 % (2.0-8.0); NEUTROPHILS % 77.4 % (36.0-66.0); PARTIAL THROMBOPLASTIN TIME 29.3 SECONDS (24.8-34.2); PLATELET COUNT, AUTOMATED 232 10^3/uL (150-450); PROTHROMBIN TIME 12.6 SECONDS (12.5-14.5)
[2024-01-02 00:26] LABS: BLOOD UREA NITROGEN 27 MG/DL (9-23); CALCIUM LEVEL 9.9 MG/DL (8.3-10.6); CARBON DIOXIDE LEVEL 33 MMOL/L (20-31); CHLORIDE LEVEL 103 MMOL/L (98-107); CREATININE FOR GFR 0.45 MG/DL (0.55-1.30); GLOMERULAR FILTRATION RATE > 60.0 (>39); GLUCOSE, FASTING 145 MG/DL (74-106); POTASSIUM SERUM 4.5 MMOL/L (3.5-5.1); SODIUM LEVEL 140 MMOL/L (136-145)
[2024-01-02] MEDS: NS 1,000 ML IV SCH (01:43)
[2024-01-02] MEDS ORDERED: POLY17PO18 PO (08:48)
[2024-01-02] MEDS ORDERED: BUSP1TAB PO (08:48)
[2024-01-02] MEDS ORDERED: ACET1TAB55 PO ×2 (08:48)
[2024-01-02] MEDS ORDERED: SODIGEL (08:48)
[2024-01-02] MEDS ORDERED: MIRT1TAB PO (08:48)
[2024-01-02] MEDS ORDERED: IPRA0.00 INH (08:48)
[2024-01-02] MEDS ORDERED: VITA1CAP25 PO (08:48)
[2024-01-02] MEDS ORDERED: FLEEENE12 PR (08:48)
[2024-01-02] MEDS ORDERED: HOME MED LIST COMPLETE! XX SCH (08:50)
[2024-01-02 09:10] LABS: BASO % 0.4 % (0.0-1.0); EOS % 0.2 % (0.0-3.0); HEMATOCRIT 30.1 % (36.0-47.0); HEMOGLOBIN 9.6 g/dl (12.0-15.5); LYMPH # 1.5 10^3/uL (1.5-5.0); LYMPH % 16.3 % (24.0-44.0); MEAN CORPUSCULAR HGB CONC 31.9 g/dl (32.0-36.5); MEAN CORPUSCULAR VOLUME 97.1 fl (80.0-96.0); MONO # 0.7 10^3/uL (0.0-0.8); MONO % 7.9 % (2.0-8.0); NEUTROPHILS # 6.8 10^3/uL (1.5-8.5); NEUTROPHILS % 74.8 % (36.0-66.0); PLATELET COUNT, AUTOMATED 227 10^3/uL (150-450); WHITE BLOOD COUNT 9.1 10^3/uL (4.0-10.0)
[2024-01-02 09:39] LABS: ALBUMIN 3.2 G/DL (3.2-5.2); BLOOD UREA NITROGEN 24 MG/DL (9-23); CALCIUM LEVEL 9.5 MG/DL (8.3-10.6); CARBON DIOXIDE LEVEL 32 MMOL/L (20-31); CHLORIDE LEVEL 106 MMOL/L (98-107); CREATININE FOR GFR 0.42 MG/DL (0.55-1.30); GLOMERULAR FILTRATION RATE > 60.0 (>39); GLUCOSE, FASTING 129 MG/DL (74-106); PHOSPHORUS LEVEL 3.7 MG/DL (2.4-5.1); POTASSIUM SERUM 4.4 MMOL/L (3.5-5.1); SODIUM LEVEL 143 MMOL/L (136-145)
[2024-01-02] MEDS: ceFAZolin 2 GM/D5W 50 ML IV BAG As Ordered ONE (12:39)
[2024-01-02] MEDS ORDERED: PHENYLephrine 500MCG 5ML (100MCG/ML) SYRINGE As Ordered ONE (13:00)
[2024-01-02] MEDS ORDERED: ONDANSETRON 4MG 2ML VIAL As Ordered ONE (13:00)
[2024-01-02] MEDS ORDERED: KETAMINE HCL 200MG/20ML VIAL As Ordered ONE (13:00)
[2024-01-02] MEDS ORDERED: dexmedeTOMIDine (4MCG/ML)200MCG/50ML BTL (PRECEDEX) As Ordered ONE (13:00)
[2024-01-02] MEDS ORDERED: ACETAMINOPHEN 1000MG 100ML IV BAG As Ordered ONE (13:00)
[2024-01-02] MEDS ORDERED: PHENYLEPHRINE 10MG/ML 1ML VIAL As Ordered ONE (13:05)
[2024-01-02] MEDS: SODIUM CHLORIDE 0.9% 1000ML IV ONE (18:32)
[2024-01-02] MEDS: ceFAZolin SOD 2 GM in IV 1 EA IV SCH (21:20)
[2024-01-03] VITALS (12 sets, daily range): BP systolic 80–105; BP diastolic 46–74; TEMP 97–98.8; O2SAT 94–100
[2024-01-03 06:01] LABS: MEAN CORPUSCULAR HEMOGLOBIN 30.6 pg (27.0-33.0); MEAN CORPUSCULAR HGB CONC 30.8 g/dl (32.0-36.5); MEAN CORPUSCULAR VOLUME 99.5 fl (80.0-96.0); PLATELET COUNT, AUTOMATED 143 10^3/uL (150-450); RED BLOOD COUNT 1.83 10^6/uL (4.00-5.40); WHITE BLOOD COUNT 7.4 10^3/uL (4.0-10.0)
[2024-01-03 06:07] LABS: HEMATOCRIT 18.2 % (36.0-47.0); HEMOGLOBIN 5.6 g/dl (12.0-15.5)
[2024-01-03] MEDS ORDERED: IPRATROPIUM 0.5MG/ALBUTEROL 2.5MG INH SOL UD 3ML (DUONEB) INH PRN (06:10)
[2024-01-03] MEDS ORDERED: BISACODYL 10MG SUPP PR PRN (06:10)
[2024-01-03 06:28] LABS: BLOOD UREA NITROGEN 16 MG/DL (9-23); CALCIUM LEVEL 8.1 MG/DL (8.3-10.6); CARBON DIOXIDE LEVEL 31 MMOL/L (20-31); CHLORIDE LEVEL 108 MMOL/L (98-107); CREATININE FOR GFR 0.41 MG/DL (0.55-1.30); GLOMERULAR FILTRATION RATE > 60.0 (>39); GLUCOSE, FASTING 86 MG/DL (74-106); MAGNESIUM LEVEL 1.7 MG/DL (1.8-2.4); SODIUM LEVEL 142 MMOL/L (136-145)
[2024-01-03] MEDS: FAMOTIDINE 20 MG TAB PO SCH (08:00)
[2024-01-03] MEDS: MAGNESIUM OXIDE 400MG TAB (MAG-OX) PO ONE (08:00)
[2024-01-03] MEDS: ACETAMINOPHEN TAB 650MG DOSE (2X325MG) PO PRN (14:02)
[2024-01-03 16:47] LABS: HEMOGLOBIN 9.4 g/dl (12.0-15.5)
[2024-01-03] MEDS: MAG SULF 1GM/100ML (MAG RUN) 1 GM in IV 1 EA IV SCH (18:55)
[2024-01-03] MEDS: QUEtiapine FUMARATE 25 MG TAB PO SCH (20:09)
[2024-01-03] MEDS: busPIRone 5 MG TAB PO SCH (20:09)
[2024-01-03] MEDS: MIRTAZAPINE 7.5MG PER 1/2 TABLET PO SCH (20:10)
[2024-01-03] MEDS: SENOKOT S TAB PO SCH (20:10)
[2024-01-03] MEDS: DIVALPROEX 125 MG TAB PO SCH (20:10)
[2024-01-03 20:21] LABS: HEMATOCRIT 25.8 % (36.0-47.0); HEMOGLOBIN 8.8 g/dl (12.0-15.5)
[2024-01-04 00:46] LABS: HEMATOCRIT 26.5 % (36.0-47.0)
[2024-01-04 04:06] VITALS: BP 105/55; TEMP 98.4; O2SAT 100
[2024-01-04 07:59] LABS: ALBUMIN 2.5 G/DL (3.2-5.2); ALKALINE PHOSPHATASE 64 U/L (46-116); ALT/SGPT 14 U/L (7.0-40); AST/SGOT 28 U/L (<34); BILIRUBIN,DIRECT 0.2 MG/DL (<0.4); BILIRUBIN,TOTAL 0.6 MG/DL (0.3-1.2); BLOOD UREA NITROGEN 14 MG/DL (9-23); CALCIUM LEVEL 8.6 MG/DL (8.3-10.6); CARBON DIOXIDE LEVEL 32 MMOL/L (20-31); CHLORIDE LEVEL 104 MMOL/L (98-107); CREATININE FOR GFR 0.38 MG/DL (0.55-1.30); GLOMERULAR FILTRATION RATE > 60.0 (>39); GLUCOSE, FASTING 82 MG/DL (74-106); MAGNESIUM LEVEL 2.1 MG/DL (1.8-2.4); PHOSPHORUS LEVEL 2.5 MG/DL (2.4-5.1); POTASSIUM SERUM 4.2 MMOL/L (3.5-5.1); SODIUM LEVEL 139 MMOL/L (136-145); TOTAL PROTEIN 5.2 G/DL (5.7-8.2)
[2024-01-04] MEDS: MIRALAX *UNIT DOSE* 17GM PACKET PO SCH (10:11)
[2024-01-04] MEDS: ESCITALOPRAM OXALATE 5MG TABLET (LEXAPRO) PO SCH (10:12)
[2024-01-04] MEDS: ENOXAPARIN 40MG/0.4ML SYRINGE (J1650 PER 10MG) SC SCH (10:38)
[2024-01-04 11:49] VITALS: BP 96/55; TEMP 98.1; O2SAT 99
[2024-01-04 19:38] VITALS: BP 94/54; TEMP 98.6; O2SAT 100
[2024-01-04] MEDS ORDERED: GLUCAGON INJ 1MG VIAL SC PRN (23:05)
[2024-01-04] MEDS ORDERED: GLUCOSE 4 GM CHEW PO PRN (23:05)
[2024-01-04] MEDS ORDERED: DEXTROSE 50% 50ML SYRINGE IV PRN (23:05)
[2024-01-05 04:18] VITALS: BP 118/42; TEMP 97.7; O2SAT 97
[2024-01-05 06:27] LABS: ALBUMIN 2.3 G/DL (3.2-5.2); BLOOD UREA NITROGEN 11 MG/DL (9-23); CALCIUM LEVEL 8.7 MG/DL (8.3-10.6); CARBON DIOXIDE LEVEL 35 MMOL/L (20-31); CHLORIDE LEVEL 106 MMOL/L (98-107); GLOMERULAR FILTRATION RATE > 60.0 (>39); GLUCOSE, FASTING 87 MG/DL (74-106); MAGNESIUM LEVEL 2.1 MG/DL (1.8-2.4); PHOSPHORUS LEVEL 3.1 MG/DL (2.4-5.1); POTASSIUM SERUM 4.2 MMOL/L (3.5-5.1); SODIUM LEVEL 142 MMOL/L (136-145)
[2024-01-05] MEDS: INSULIN LISPRO (NovoLOG) PER UNIT SC SCH (07:30)
== END 2024-01-05 12:45 | DRG 480 ==
LOC: M ED 23:23 → M ED INP 01-02 01:31 → M MS5PR 01-02 02:57
PROVIDERS: ADMIT Preventive Medicine Undersea and Hyperbaric Medicine; ATTEND Student in an Organized Health Care Education/Training Program
PROC: 0QPB04Z Removal of Internal Fixation Device from Right Lower Femur, Open Approach (ICD-10-PCS; 2024-01-02)
PROC: 0QS606Z Reposition Right Upper Femur with Intramedullary Internal Fixation Device, Open Approach (ICD-10-PCS; principal; 2024-01-02 12:00)
PROC: 30233N1 Transfusion of Nonautologous Red Blood Cells into Peripheral Vein, Percutaneous Approach (ICD-10-PCS; 2024-01-03)
DX: S72.301A Unspecified fracture of shaft of right femur, initial encounter for closed fracture (principal); E43 Unspecified severe protein-calorie malnutrition; J96.10 Chronic respiratory failure, unspecified whether with hypoxia or hypercapnia; Z68.1 Body mass index [BMI] 19.9 or less, adult; I50.32 Chronic diastolic (congestive) heart failure; D62 Acute posthemorrhagic anemia; F03.C0 Unspecified dementia, severe, without behavioral disturbance, psychotic disturbance, mood disturbance, and anxiety; J43.9 Emphysema, unspecified; I25.10 Atherosclerotic heart disease of native coronary artery without angina pectoris; Z95.1 Presence of aortocoronary bypass graft; E11.51 Type 2 diabetes mellitus with diabetic peripheral angiopathy without gangrene; I11.0 Hypertensive heart disease with heart failure; F39 Unspecified mood [affective] disorder; E78.5 Hyperlipidemia, unspecified; K21.9 Gastro-esophageal reflux disease without esophagitis; K59.09 Other constipation; M81.0 Age-related osteoporosis without current pathological fracture; Z88.8 Allergy status to other drugs, medicaments and biological substances; Z79.899 Other long term (current) drug therapy; Z79.82 Long term (current) use of aspirin; Z99.81 Dependence on supplemental oxygen; W18.30XA Fall on same level, unspecified, initial encounter; Y92.009 Unspecified place in unspecified non-institutional (private) residence as the place of occurrence of the external cause

== ENCOUNTER → 2024-01-01 | Outpatient (REF) | payer MEDICARE ==
[~2024-01-01] MED LIST changes: +ACET1TAB55 PO; +BUSP1TAB PO; +FLEEENE12 PR; +POLY17PO18 PO; +SODIGEL; +VITA1CAP25 PO
== END ==
LOC: SKLAB3 20:52
PROVIDERS: ATTEND Internal Medicine
DX: S72.8X1A Other fracture of right femur, initial encounter for closed fracture (principal); X58.XXXA Exposure to other specified factors, initial encounter; Y92.129 Unspecified place in nursing home as the place of occurrence of the external cause; Y93.9 Activity, unspecified; Y99.9 Unspecified external cause status

== ENCOUNTER → 2024-01-08 | Outpatient (REF) | payer MEDICARE, MEDICAID ==
[~2024-01-08] MED LIST changes: +ACET1TAB55 PO; +BUSP1TAB PO; +FLEEENE12 PR; +POLY17PO18 PO; +SODIGEL; +VITA1CAP25 PO
[2024-01-08 12:18] LABS: HEMATOCRIT 31.4 % (36.0-47.0); HEMOGLOBIN 10.2 g/dl (12.0-15.5); MEAN CORPUSCULAR HEMOGLOBIN 31.3 pg (27.0-33.0); MEAN CORPUSCULAR HGB CONC 32.5 g/dl (32.0-36.5); MEAN CORPUSCULAR VOLUME 96.3 fl (80.0-96.0); PLATELET COUNT, AUTOMATED 241 10^3/uL (150-450); RED BLOOD COUNT 3.26 10^6/uL (4.00-5.40); WHITE BLOOD COUNT 5.8 10^3/uL (4.0-10.0)
[2024-01-08 12:52] LABS: BLOOD UREA NITROGEN 15 MG/DL (9-23); CALCIUM LEVEL 9.4 MG/DL (8.3-10.6); CARBON DIOXIDE LEVEL 36 MMOL/L (20-31); CHLORIDE LEVEL 101 MMOL/L (98-107); CREATININE FOR GFR 0.36 MG/DL (0.55-1.30); GLOMERULAR FILTRATION RATE > 60.0 (>39); GLUCOSE, FASTING 105 MG/DL (74-106); POTASSIUM SERUM 4.3 MMOL/L (3.5-5.1); SODIUM LEVEL 138 MMOL/L (136-145)
== END ==
LOC: SKLAB3 11:14
PROVIDERS: ATTEND Internal Medicine
DX: D64.9 Anemia, unspecified (principal)

== ENCOUNTER → 2024-01-16 | Outpatient (CLI) | payer MEDICARE, MEDICAID | LOC: M SOG 07:59 | PROVIDERS: ATTEND Physician Assistant | DX: S72.301A Unspecified fracture of shaft of right femur, initial encounter for closed fracture (principal) ==

== ENCOUNTER → 2024-02-23 | Outpatient (CLI) | payer MEDICARE | LOC: M RAD 15:13 | PROVIDERS: ATTEND Nurse Practitioner | DX: M25.551 Pain in right hip (principal); M79.651 Pain in right thigh ==

== ENCOUNTER → 2024-02-23 | Outpatient (REF) | payer MEDICARE, MEDICAID | LOC: SKLAB3 14:38 | PROVIDERS: ATTEND Internal Medicine | DX: Z53.8 Procedure and treatment not carried out for other reasons (principal) ==

== ENCOUNTER → 2024-03-09 | Outpatient (REF) | payer MEDICARE | LOC: SKLAB3 08:14 | PROVIDERS: ATTEND Internal Medicine | DX: I25.10 Atherosclerotic heart disease of native coronary artery without angina pectoris (principal) ==

== ENCOUNTER → 2024-03-09 | Outpatient (REF) | payer MEDICARE ==
[2024-03-09 11:06] LABS: ALBUMIN 3.3 G/DL (3.2-5.2); ALKALINE PHOSPHATASE 107 U/L (46-116); ALT/SGPT 26 U/L (7.0-40); AST/SGOT 26 U/L (<34); BILIRUBIN,TOTAL 0.3 MG/DL (0.3-1.2); BLOOD UREA NITROGEN 20 MG/DL (9-23); CARBON DIOXIDE LEVEL 34 MMOL/L (20-31); CHLORIDE LEVEL 102 MMOL/L (98-107); CREATININE FOR GFR 0.43 MG/DL (0.55-1.30); GLOMERULAR FILTRATION RATE > 60.0 (>39); GLUCOSE, FASTING 98 MG/DL (74-106); POTASSIUM SERUM 4.5 MMOL/L (3.5-5.1); SODIUM LEVEL 138 MMOL/L (136-145); TOTAL PROTEIN 7.3 G/DL (5.7-8.2)
== END ==
LOC: SKLAB3 08:17
PROVIDERS: ATTEND Internal Medicine
DX: I25.10 Atherosclerotic heart disease of native coronary artery without angina pectoris (principal)

== ENCOUNTER → 2024-04-06 | Outpatient (REF) | payer MEDICARE ==
[2024-04-06 16:03] LABS: HEMOGLOBIN 10.4 g/dl (12.0-15.5); MEAN CORPUSCULAR HEMOGLOBIN 30.7 pg (27.0-33.0); MEAN CORPUSCULAR HGB CONC 31.5 g/dl (32.0-36.5); MEAN CORPUSCULAR VOLUME 97.3 fl (80.0-96.0); PLATELET COUNT, AUTOMATED 231 10^3/uL (150-450); RED BLOOD COUNT 3.39 10^6/uL (4.00-5.40); WHITE BLOOD COUNT 6.4 10^3/uL (4.0-10.0)
== END ==
LOC: SKLAB3 07:00
PROVIDERS: ATTEND Internal Medicine
DX: D64.9 Anemia, unspecified (principal)

== ENCOUNTER → 2024-04-26 | Outpatient (CLI) | payer MEDICARE | LOC: M SOG 07:22 | PROVIDERS: ATTEND Physician Assistant | DX: S72.301D Unspecified fracture of shaft of right femur, subsequent encounter for closed fracture with routine healing (principal) ==

== ENCOUNTER → 2024-05-19 | Outpatient (CLI) | payer MEDICARE | LOC: M SOG 07:21 | PROVIDERS: ATTEND Orthopaedic Surgery | DX: S72.301D Unspecified fracture of shaft of right femur, subsequent encounter for closed fracture with routine healing (principal) ==

== ENCOUNTER → 2024-07-06 | Outpatient (REF) | payer MEDICARE ==
[2024-07-06 09:41] LABS: HEMATOCRIT 37.9 % (36.0-47.0); HEMOGLOBIN 11.9 g/dl (12.0-15.5); MEAN CORPUSCULAR HEMOGLOBIN 30.7 pg (27.0-33.0); MEAN CORPUSCULAR HGB CONC 31.4 g/dl (32.0-36.5); MEAN CORPUSCULAR VOLUME 97.9 fl (80.0-96.0); PLATELET COUNT, AUTOMATED 250 10^3/uL (150-450); RED BLOOD COUNT 3.87 10^6/uL (4.00-5.40); WHITE BLOOD COUNT 5.9 10^3/uL (4.0-10.0)
== END ==
LOC: SKLAB3 07:00
PROVIDERS: ATTEND Internal Medicine
DX: D64.9 Anemia, unspecified (principal)

== ENCOUNTER → 2024-09-07 | Outpatient (REF) | payer MEDICARE ==
[2024-09-07 09:06] LABS: ALBUMIN 3.3 G/DL (3.2-5.2); ALKALINE PHOSPHATASE 80 U/L (35-104); ALT/SGPT 24 U/L (7.0-40); AST/SGOT 26 U/L (<34); BILIRUBIN,TOTAL 0.2 MG/DL (0.3-1.2); BLOOD UREA NITROGEN 28 MG/DL (9-23); CALCIUM LEVEL 9.7 MG/DL (8.3-10.6); CARBON DIOXIDE LEVEL 34 MMOL/L (20-31); CHLORIDE LEVEL 102 MMOL/L (98-107); CREATININE FOR GFR 0.49 MG/DL (0.55-1.30); GLOMERULAR FILTRATION RATE > 60.0 (>39); GLUCOSE, FASTING 79 MG/DL (74-106); POTASSIUM SERUM 4.7 MMOL/L (3.5-5.1); SODIUM LEVEL 142 MMOL/L (136-145); TOTAL PROTEIN 7.1 G/DL (5.7-8.2)
== END ==
LOC: SKLAB3 07:00
PROVIDERS: ATTEND Internal Medicine
DX: I25.10 Atherosclerotic heart disease of native coronary artery without angina pectoris (principal)

== ENCOUNTER → 2024-09-28 | Outpatient (REF) | payer MEDICARE ==
[2024-09-28 15:56] LABS: HEMATOCRIT 34.1 % (36.0-47.0); HEMOGLOBIN 10.9 g/dl (12.0-15.5); MEAN CORPUSCULAR HEMOGLOBIN 30.7 pg (27.0-33.0); MEAN CORPUSCULAR VOLUME 96.1 fl (80.0-96.0); PLATELET COUNT, AUTOMATED 195 10^3/uL (150-450); RED BLOOD COUNT 3.55 10^6/uL (4.00-5.40); WHITE BLOOD COUNT 8.4 10^3/uL (4.0-10.0)
[2024-09-28 16:20] LABS: BLOOD UREA NITROGEN 20 MG/DL (9-23); CALCIUM LEVEL 9.2 MG/DL (8.3-10.6); CARBON DIOXIDE LEVEL 29 MMOL/L (20-31); CHLORIDE LEVEL 105 MMOL/L (98-107); CREATININE FOR GFR 0.49 MG/DL (0.55-1.30); GLOMERULAR FILTRATION RATE > 60.0 (>39); GLUCOSE, FASTING 157 MG/DL (74-106); SODIUM LEVEL 142 MMOL/L (136-145)
== END ==
LOC: SKLAB3 14:44
PROVIDERS: ATTEND Internal Medicine
DX: R63.8 Other symptoms and signs concerning food and fluid intake (principal); R06.2 Wheezing

== ENCOUNTER → 2024-09-30 | Outpatient (REF) | payer MEDICARE ==
[2024-09-30 14:08] LABS: HEMATOCRIT 34.6 % (36.0-47.0); MEAN CORPUSCULAR HEMOGLOBIN 30.4 pg (27.0-33.0); MEAN CORPUSCULAR HGB CONC 31.8 g/dl (32.0-36.5); MEAN CORPUSCULAR VOLUME 95.6 fl (80.0-96.0); PLATELET COUNT, AUTOMATED 218 10^3/uL (150-450); RED BLOOD COUNT 3.62 10^6/uL (4.00-5.40); WHITE BLOOD COUNT 7.4 10^3/uL (4.0-10.0)
[2024-09-30 14:36] LABS: BLOOD UREA NITROGEN 18 MG/DL (9-23); CALCIUM LEVEL 9.4 MG/DL (8.3-10.6); CARBON DIOXIDE LEVEL 31 MMOL/L (20-31); CHLORIDE LEVEL 102 MMOL/L (98-107); CREATININE FOR GFR 0.54 MG/DL (0.55-1.30); GLOMERULAR FILTRATION RATE > 60.0 (>39); GLUCOSE, FASTING 107 MG/DL (74-106); POTASSIUM SERUM 4.1 MMOL/L (3.5-5.1); SODIUM LEVEL 140 MMOL/L (136-145)
== END ==
LOC: SKLAB3 13:24
PROVIDERS: ATTEND Internal Medicine
DX: R41.82 Altered mental status, unspecified (principal); R06.00 Dyspnea, unspecified